=== PATIENT | female | born 1975 | race Two or more races ===

== ENCOUNTER → 2020-01-29 07:51 | Outpatient (BNVA) | payer OTHER, SELFPAY | PROVIDERS: PCP Internal Medicine; Visit Provider Advanced Practice Midwife | DX: Z76.89 Persons encountering health services in other specified circumstances (principal) ==

== ENCOUNTER 2020-05-08 08:04 | Outpatient (REF) | payer OTHER, SELFPAY ==
--- NOTE | ~2020-05-08 | MM_ITS ---
EXAMINATION: MM SCREENING DIGITAL BREAST TOMOSYNTHESIS, BILATERAL CLINICAL INFORMATION: Screening. Asymptomatic. The lifetime risk of breast cancer based on the Tyrer-Cuzick Model is 16%. COMPARISON: Mammography: 05/03/2019, 03/14/2018, 05/19/2017 TECHNIQUE: Digital breast tomosynthesis is performed in both the craniocaudal and mediolateral oblique views along with computer-aided detection (CAD). Synthesized 2D images are generated from the tomosynthesis. Additional right MLO view is provided. FINDINGS: There are scattered areas of fibroglandular density (ACR BI-RADS breast composition Category b). There are no significant masses, abnormal calcifications, or other abnormalities. The axilla and skin contours are unremarkable. MM/MM tomosynthesis screening BI IMPRESSION: No mammographic evidence of malignancy. ASSESSMENT: BI-RADS 1: Negative RECOMMENDATION: Routine annual mammography screening. This patient's information was entered into a reminder system with a target due date for their next mammogram.
== END 2020-05-08 08:05 | disposition home or self-care (01) ==
LOC: HO.MAMMO 08:04
PROVIDERS: PCP Internal Medicine; Visit Provider Internal Medicine
DX: Z12.31 Encounter for screening mammogram for malignant neoplasm of breast (principal)
CPT/HCPCS: 77063; 77067

== ENCOUNTER 2021-07-28 09:01 | Outpatient (REF) | payer OTHER, SELFPAY ==
[2021-07-28 14:32] LABS: CT PCR NOT DETECTED (Not Detect.); NG PCR NOT DETECTED (Not Detect.)
[2021-07-29 11:02] LABS: BV Int Neg Control Negative (Negative); BV Int Pos Control Positive (Positive)
[2021-07-31 13:02] LABS: HPV mRNA E6/E7 rflx Not Detected (Not Detected)
== END 2021-07-28 09:02 | disposition home or self-care (01) ==
LOC: HO.LAB 09:01
PROVIDERS: PCP Internal Medicine; Visit Provider Advanced Practice Midwife
DX: Z01.419 Encounter for gynecological examination (general) (routine) without abnormal findings (principal); R82.90 Unspecified abnormal findings in urine; N92.6 Irregular menstruation, unspecified; Z20.2 Contact with and (suspected) exposure to infections with a predominantly sexual mode of transmission
CPT/HCPCS: 87480; 87491; 87510; 87591; 87624; 87660; 88142

== ENCOUNTER 2021-07-30 07:52 | Outpatient (REF) | payer OTHER, SELFPAY ==
[2021-07-30 08:12] LABS: MANUAL DIFF FLAG NO
[2021-07-30 08:58] LABS: Basophils Absolute Auto 0.1 X10*3/uL (0.0-0.2); Basophils Percent Auto 0.8 % (0-2); Eosinophils Absolute Auto 0.2 X10*3/uL (0.0-0.4); Eosinophils Percent Auto 2.7 % (0-4); Hematocrit 33.9 % (37.0-47.0); Hemoglobin 9.9 g/dl (12.0-16.0); Imm Gran Abs Auto 0.03 X10*3/uL (0.00-0.03); Imm Gran Pct Auto 0.3 % (0.0-0.4); Lymphocytes Absolute Auto 1.8 X10*3/uL (1.2-4.9); Lymphocytes Percent Auto 20.4 % (20-40); Mean Corpuscular HGB Conc 29.2 g/dl (31.0-35.0); Mean Corpuscular Hemoglobin 22.2 pg (27.0-33.0); Mean Corpuscular Volume 76.2 fL (80.0-98.0); Mean Platelet Volume 9.6 fL (9.4-12.3); Monocytes Absolute Auto 0.7 X10*3/uL (0.1-1.2); Monocytes Percent Auto 8.2 % (2-11); Neutrophils Percent Auto 67.6 % (45-73); Platelet Count 441 X10*3/uL (160-400); Red Blood Count 4.45 X10*6/uL (4.20-5.50); Red Cell Distribution Width 16.8 % (11.0-16.0); White Blood Count 8.8 X10*3/uL (4.8-10.8)
[2021-07-30 09:29] LABS: Alanine Aminotransferase 12 U/L (0-31); Albumin Level 3.9 g/dL (3.5-5.0); Alkaline Phosphatase 69 U/L (39-117); Anion Gap 11 (12-20); Aspartate Amino Transferase 14 U/L (5-31); Bilirubin Total 0.4 mg/dL (0.0-1.0); Blood Urea Nitrogen 12 mg/dL (9-16); Calcium 9.3 mg/dL (8.4-10.2); Carbon Dioxide 25 mmol/L (22-29); Chloride 104 mmol/L (96-108); Cholesterol 156 mg/dL; Estimated Glomerular Filt Rate > 60; Glucose Fasting 115 mg/dL (60-99); HDL Cholesterol 37 mg/dL; LDL Cholesterol Calculated 107 mg/dl; Potassium 4.1 mmol/L (3.3-5.1); Sodium 136 mmol/L (135-145); Total Protein 7.4 g/dL (6.5-8.0); Triglycerides 62 mg/dL
[2021-07-30 09:40] LABS: Thyroid Stimulating Hormone 3.15 uIU/mL (0.32-4.0)
[2021-07-31 06:46] LABS: Thyroglobulin Antibodies <1 IU/mL (< or = 1); Thyroid Peroxidase Antibodies 334 IU/mL (<9)
== END 2021-07-30 07:53 | disposition home or self-care (01) ==
LOC: HO.LAB 07:52
PROVIDERS: PCP Internal Medicine; Visit Provider Internal Medicine
DX: Z00.00 Encounter for general adult medical examination without abnormal findings (principal); N92.6 Irregular menstruation, unspecified; E03.9 Hypothyroidism, unspecified; E78.5 Hyperlipidemia, unspecified; D64.9 Anemia, unspecified
CPT/HCPCS: 36415; 80053; 80061; 84443; 85025; 86376; 86800; 87086

== ENCOUNTER → 2021-08-03 13:50 | Outpatient (REF) | payer OTHER, SELFPAY | LOC: HO.SL 13:50 | PROVIDERS: PCP Internal Medicine; Visit Provider Internal Medicine | DX: G47.33 Obstructive sleep apnea (adult) (pediatric) (principal) | CPT/HCPCS: 95806 ==

== ENCOUNTER 2021-08-04 08:38 | Outpatient (REF) | payer OTHER, SELFPAY ==
--- NOTE | ~2021-08-04 | MM_ITS ---
EXAMINATION: MM SCREENING DIGITAL BREAST TOMOSYNTHESIS, BILATERAL CLINICAL INFORMATION: Screening. Asymptomatic. The lifetime risk of breast cancer based on the Tyrer-Cuzick Model is 15.6%. COMPARISON: Mammography: May 08, 2020 and studies dating back to May 19, 2017 TECHNIQUE: Digital breast tomosynthesis is performed in both the craniocaudal and mediolateral oblique views along with computer-aided detection (CAD). Synthesized 2D images are generated from the tomosynthesis. FINDINGS: The breasts are heterogeneously dense, which may obscure small masses (ACR BI-RADS breast composition Category c). There are no significant masses, abnormal calcifications, or other abnormalities. MM/MM tomosynthesis screening BI IMPRESSION: There are no significant changes from prior study. ASSESSMENT: BI-RADS 1: Negative RECOMMENDATION: Routine annual mammography screening. This patient's information was entered into a reminder system with a target due date for their next mammogram.
== END 2021-08-04 08:39 | disposition home or self-care (01) ==
LOC: HO.MAMMO 08:38
PROVIDERS: Visit Provider Advanced Practice Midwife
DX: Z12.31 Encounter for screening mammogram for malignant neoplasm of breast (principal)
CPT/HCPCS: 77063; 77067

== ENCOUNTER 2021-08-11 05:57 | Emergency (ER) | payer OTHER, SELFPAY ==
[2021-08-11 06:10] VITALS: BP 122/74; PULSE 92; RESP 18; TEMP 36.8; O2SAT 100; BMI 49.4
--- NOTE | 2021-08-11 07:30 | ED_ITS ---
HPI - Skin/Abscess/Foreign Bdy General Chief complaint: Skin/Abscess/Foreign Body Stated complaint: left sided breast pain Time Seen by Provider: 08/11/21 07:23 Source: patient Mode of arrival: ambulatory Limitations: no limitations History of Present Illness complaint: abscess/boil Onset (ago): day(s) (4) Tetanus up to date: yes Location: chest (under left breast) Severity: moderate Quality: aching Pain Consistency: constant Relieving factors: rest Exacerbating factors: palpation Context: other (hx of boils in the past) Associated symptoms: denies other symptoms Treatments prior to arrival: bandages Related Data Home Medications Medication Instructions Recorded Confirmed levothyroxine 75 mcg tablet 75 mcg PO DAILY 01/29/20 07/01/21 pantoprazole 40 mg tablet,delayed 40 mg PO DAILY 01/29/20 07/01/21 release Previous Rx's Medication Instructions Recorded medroxyprogesterone 10 mg tablet 10 mg PO DAILY #10 tabs 01/31/20 (Provera) blood sugar diagnostic #10 ea 04/28/20 lancets 28 gauge #100 ea 04/28/20 CPAP (CPAP Machine/Device) #1 ea 11/06/20 albuterol sulfate 2.5 mg (3 mL) inhalation Q4-6H PRN 11/10/20 shortness of breath or wheezing 30 days #75 mL albuterol sulfate 90 mcg/actuation 2 puff inhalation QID PRN 02/08/21 aerosol inhaler (ProAir HFA) shortness of breath or wheezing 30 days #8.5 grams metronidazole 500 mg tablet 500 mg PO BID 7 days #14 tabs 07/30/21 sulfamethoxazole 800 1 tab PO BID 10 days #20 tabs 08/09/21 mg-trimethoprim 160 mg tablet (Bactrim DS) cephalexin 500 mg capsule 500 mg PO TID 7 days #21 caps 08/11/21 doxycycline monohydrate 100 mg 100 mg PO BID 7 days #14 tabs 08/11/21 tablet Allergies Allergy/AdvReac Type Severity Reaction Status Date / Time nickel [NICKEL] Allergy Mild RASH Verified 07/28/21 09:36 pioglitazone Allergy Unknown headache, Verified 07/28/21 09:36 vomiting, stomach upset Review of Systems Review of Systems: Constitutional : No Fever, No Chills ENT/Mouth : No sore throat, No Rhinorrhea Eyes: No Eye Pain, No Swelling, No Redness Cardiovascular : No Chest Pain, No SOB Respiratory : No Cough, No Sputum Gastrointestinal : No Nausea, No Vomiting, No Diarrhea, No abdominal Pain Genitourinary : No Dysuria, No Hematuria Musculoskeletal : No joint pain, No Myalgias, No Joint Swelling Skin : pos Skin Lesions, positive skin rash Neuro : No Weakness, No Numbness, No Headache Psych : No Anxiety, No Depression Heme/Lymph: No Bruising, No Bleeding,No Lymphadenopathy Endocrine : No Polyuria, No Polydipsia All other systems reviewed and are negative [facility] Past Medical History Attestation statement: The following information was validated with the patient. Medical History Hx of diabetes mellitus Hx of thyroid disease Hyperlipemia Sleep apnea Surgical History H/O gastric bypass H/O ventral hernia repair History of appendectomy History of lithotripsy Hx of ovarian cystectomy Family History Family History Father Diabetes mellitus Stroke Mother Diabetes mellitus CVD (cardiovascular disease) Paternal Grandmother History of breast cancer Maternal Grandmother No problems noted. Maternal Aunt Stroke Diabetes mellitus Sister In good health Maternal Grandfather Skin cancer Social History Social History Housing: Apartment Alcohol intake: current Alcohol intake frequency: holidays/special occasions only Alcohol type: wine Patient Tobacco Use Status: Never used Tobacco e-Cigarette/Vaping Use: Never Used Second Hand Smoke Exposure: No Advance Directives: No Advance Directives Information Provided: Yes service: No Current occupational status: unemployed Sexual orientation: Straight/Heterosexual Cognitive needs: No Hearing needs: No Vision needs: Yes Physical Exam Vital Signs: Vital Signs: Last Vital Signs Temp 98.7 F 08/11/21 07:57 Pulse 71 08/11/21 08:16 Resp 18 08/11/21 08:16 BP 114/78 08/11/21 08:16 Pulse Ox 98 08/11/21 08:16 O2 Del Method 08/11/21 08:16 BMI result Body Mass Index 49.4 Appearance: Alert. Oriented X3. No acute distress. Eyes: Pupils equal, round and reactive to light. ENT: Pharynx normal. Neck: Normal inspection. Neck supple. CVS: Normal heart rate and rhythm. Pulses normal. Chest: under left breast small quarter sized boil noted no surrounding edema or erythema no retraction of nipple does not involve areola Respiratory: No respiratory distress. Breath sounds normal. Abdomen: Soft and nontender. Skin: Skin warm and dry. Normal skin color. Normal skin turgor. Extremities: No lower extremity edema. No calf ttp Neuro: Oriented X 3. No motor deficit. No sensory deficit. Course Course Course Narrative: just had mammogram prior to abscesss I+D performed by [facility] MDM - Skin/Abscess/Foreign Bdy MDM Narrative Medical decision making narrative: 46 yo female with hx of DM and boils comes in with boil under L breast x 4 days she denies fevers/vomiting or systemic symptoms at this time will start on oral antibiotics and I/D area it does not involve areola and she has hx of boils on the breast, no retraction of nipple. Procedures Abscess I/D Site: chest (L underside of breast) Side (if applicable): left Local Anesthetic: other anesthetic (LMX) Technique: needle aspiration (18G) and incised with blade (11) Amount of fluid expressed (mL): 5 Sent for culture/gram staining?: No Irrigation: Yes Packing used?: none Discharge Plan Discharge Clinical Impression: Abscess of breast Patient Disposition: Home, Self-Care Instructions: Abscess (ED) Additional Instructions: return to ED for any worsening symptoms or concerns monitor for symptoms including increased pain, redness, fevers, you seem to not be improving it is okay to shower but not soak area Prescriptions: New cephalexin 500 mg capsule 500 mg PO TID 7 Days Qty: 21 0RF doxycycline monohydrate 100 mg tablet 100 mg PO BID 7 Days Qty: 14 0RF No Action medroxyprogesterone [Provera] 10 mg tablet 10 mg PO DAILY Qty: 10 0RF (DME) blood sugar diagnostic Strip See Rx Instructions .ROUTE .MEDSUPPLY Qty: 10 11RF Rx Instructions: As directed (DME) lancets 28 gauge misc See Rx Instructions topical QID Qty: 100 11RF Rx Instructions: As directed (DME) CPAP Machine/Device Device See Rx Instructions .Route Qty: 1 0RF Rx Instructions: As directed albuterol sulfate 2.5 mg /3 mL (0.083 %) solution for nebulization 2.5 mg inhalation Q4-6H PRN (Reason: shortness of breath or wheezing) 30 Days Qty: 75 3RF albuterol sulfate [ProAir HFA] 90 mcg/actuation HFA aerosol inhaler 2 puff inhalation QID PRN (Reason: shortness of breath or wheezing) 30 Days Qty: 8.5 6RF metronidazole 500 mg tablet 500 mg PO BID 7 Days Qty: 14 0RF Rx Instructions: Take with food, Avoid alcohol and vinegar products sulfamethoxazole-trimethoprim [Bactrim DS] 800-160 mg tablet 1 tab PO BID 10 Days Qty: 20 0RF levothyroxine 75 mcg tablet 75 mcg PO DAILY pantoprazole 40 mg tablet,delayed release (DR/EC) 40 mg PO DAILY Referrals: Physician,Unknown J [Primary Care Provider] - 2 days (wound check with doctor on Monday ) Stand Alone Forms: Work/School Release
[2021-08-11 07:57] VITALS: BP 104/50; PULSE 76; RESP 14; TEMP 37.1; O2SAT 97
[2021-08-11] MEDS: cephALEXin 500 MG CAPSULE PO (08:01)
[2021-08-11 08:16] VITALS: BP 114/78; PULSE 71; RESP 18; O2SAT 98
[2021-08-11] MEDS: Lidocaine 4 % Cream KIT 1 APPL TOPICAL (09:23)
== END 2021-08-11 10:18 | disposition home or self-care (01) ==
PROVIDERS: Emergency Provider Emergency Medicine
DX: N61.1 Abscess of the breast and nipple (principal); E11.9 Type 2 diabetes mellitus without complications
CPT/HCPCS: 10060; 10160; 99284

== ENCOUNTER → 2021-08-31 10:51 | Outpatient (BNVA) | payer OTHER, SELFPAY | PROVIDERS: Visit Provider Surgery | DX: N61.1 Abscess of the breast and nipple (principal) | CPT/HCPCS: 99202 ==

== ENCOUNTER 2021-09-08 10:52 | Outpatient (REF) | payer OTHER, SELFPAY ==
--- NOTE | ~2021-09-08 | US_ITS ---
EXAMINATION: US PELVIS CLINICAL INFORMATION: Irregular menses COMPARISON: Previous pelvic ultrasound from 2019 TECHNIQUE: Ultrasound of the pelvis is performed using both transabdominal and transvaginal transducers along with Doppler. Transvaginal imaging is performed due to inadequate visualization transabdominally. FINDINGS: The uterus is anteverted and measures 9.2 x 4.4 x 6.7 cm in dimension. There are left posterior 2 fundal uterine fibroids measuring 2.4 x 2.3 x 2.8 cm that appears decreased from 3.9 x 3.1 x 3.6 cm and 1.5 x 1.2 x 1.3 cm that is not appreciably changed. Endometrial thickness is normal measuring 0.3 cm. There are nabothian cysts in the cervix. The right ovary measures 3.1 x 2.6 x 2.9 cm. There is a 2 cm simple right ovarian cyst. The left ovary measures 1.7 x 1.1 x 1.2 cm and is unremarkable. There is no fluid in the pelvis. US/US pelvic and transvaginal IMPRESSION: Posterior fundal uterine fibroids. Largest fibroid appears decreased from previous exam and smaller fibroid appears unchanged.
== END 2021-09-08 10:53 | disposition home or self-care (01) ==
LOC: HO.US 10:52
PROVIDERS: Visit Provider Advanced Practice Midwife
DX: N92.6 Irregular menstruation, unspecified (principal)
CPT/HCPCS: 76830; 76856

== ENCOUNTER → 2021-09-28 08:49 | Outpatient (BNVA) | payer OTHER, SELFPAY | PROVIDERS: PCP Internal Medicine; Visit Provider Nurse Practitioner Family | DX: G47.33 Obstructive sleep apnea (adult) (pediatric) (principal) | CPT/HCPCS: 99202 ==

== ENCOUNTER → 2021-10-07 09:55 | Outpatient (BNVA) | payer OTHER, SELFPAY | PROVIDERS: PCP Internal Medicine; Referring Provider Internal Medicine; Visit Provider Surgery | DX: N61.1 Abscess of the breast and nipple (principal) | CPT/HCPCS: 99212 ==

== ENCOUNTER 2021-11-15 08:41 | Outpatient (REF) | payer OTHER, SELFPAY ==
[2021-11-15 09:39] LABS: Hematocrit 32.9 % (37.0-47.0); Hemoglobin 9.4 g/dl (12.0-16.0); Mean Corpuscular HGB Conc 28.6 g/dl (31.0-35.0); Mean Corpuscular Hemoglobin 21.2 pg (27.0-33.0); Mean Corpuscular Volume 74.1 fL (80.0-98.0); Mean Platelet Volume 9.9 fL (9.4-12.3); Platelet Count 421 X10*3/uL (160-400); Red Blood Count 4.44 X10*6/uL (4.20-5.50); Red Cell Distribution Width 16.3 % (11.0-16.0); White Blood Count 8.3 X10*3/uL (4.8-10.8)
== END 2021-11-15 08:42 | disposition home or self-care (01) ==
LOC: HO.LAB 08:41
PROVIDERS: PCP Internal Medicine; Visit Provider Advanced Practice Midwife
DX: N93.9 Abnormal uterine and vaginal bleeding, unspecified (principal); D25.9 Leiomyoma of uterus, unspecified
CPT/HCPCS: 36415; 85027; 99212

== ENCOUNTER 2021-12-13 10:36 | Outpatient (REF) | payer OTHER, SELFPAY ==
[2021-12-15 15:48] LABS: HPV mRNA E6/E7 rflx Not Detected (Not Detected)
== END 2021-12-13 10:37 | disposition home or self-care (01) ==
LOC: HO.LNP 10:36
PROVIDERS: PCP Internal Medicine; Visit Provider Advanced Practice Midwife
DX: Z11.51 Encounter for screening for human papillomavirus (HPV) (principal); R87.615 Unsatisfactory cytologic smear of cervix; D25.9 Leiomyoma of uterus, unspecified; N93.9 Abnormal uterine and vaginal bleeding, unspecified
CPT/HCPCS: 58100; 81025; 87624; 88142; 88305

== ENCOUNTER 2021-12-13 11:32 | Outpatient (REF) | payer OTHER, SELFPAY | END 2021-12-13 11:33 | disposition home or self-care (01) | LOC: HO.LAB 11:32 | PROVIDERS: Visit Provider Advanced Practice Midwife | DX: Z13.89 Encounter for screening for other disorder (principal) | CPT/HCPCS: 88305 ==

== ENCOUNTER → 2022-01-18 10:44 | Outpatient (BNVA) | payer OTHER, SELFPAY | PROVIDERS: Visit Provider Advanced Practice Midwife | DX: Z30.09 Encounter for other general counseling and advice on contraception (principal) | CPT/HCPCS: 99212 ==

== ENCOUNTER → 2022-02-08 10:45 | Outpatient (BNVA) | payer OTHER, SELFPAY | PROVIDERS: Visit Provider Advanced Practice Midwife | DX: Z30.430 Encounter for insertion of intrauterine contraceptive device (principal) | CPT/HCPCS: 58300; J7298 ==

== ENCOUNTER 2022-02-27 19:20 | Emergency (ER) | payer OTHER, SELFPAY ==
--- NOTE | ~2022-02-27 | CT_ITS ---
EXAMINATION: CT ABDOMEN AND PELVIS WITHOUT CONTRAST CLINICAL INFORMATION: Abdominal tenderness. Vomiting. COMPARISON: CT abdomen and pelvis 07/27/2018 TECHNIQUE: Multidetector volumetric imaging was performed from the superior aspect of the liver through the pubic symphysis. Sagittal and coronal reformatted images were obtained on the technologist's workstation. This CT examination was performed using dose optimization techniques as appropriate, variously including the following: *Automated exposure control *Adjustment of mA and/or kV according to patient size (this includes techniques or standardized protocols for targeted exams where dose is matched to indication/reason for exam; i.e. extremities or head) *Use of iterative reconstruction technique DLP: 1036 mGy-cm FINDINGS: LUNG BASES: The visualized lung bases are unremarkable. LIVER, GALLBLADDER, AND BILIARY TREE: The liver is normal in size, shape, and attenuation. No focal hepatic lesion or biliary ductal dilatation is present. The gallbladder is unremarkable with no evidence of radiopaque gallstones, gallbladder wall thickening, or obvious pericholecystic inflammatory changes. PANCREAS: Unremarkable. SPLEEN: Unremarkable. ADRENAL GLANDS: Left adrenal nodule measuring 2.1 cm. Density measurement 0 Hounsfield units consistent with adrenal adenoma. No further imaging recommended. The right adrenal gland is normal. KIDNEYS AND URETERS: 1 mm nonobstructive stone upper pole of the right kidney. No stone in left kidney. There is no hydronephrosis. No ureteral calculus. BLADDER: Unremarkable. GASTROINTESTINAL TRACT: Status post gastric surgery. There is no acute abnormality of the bowel. No bowel obstruction. No bowel wall thickening or edema. Small volume of scattered stool in the colon Appendix not visualized. Surgical clips right lower quadrant likely prior appendectomy. ABDOMINAL WALL: No significant hernia is appreciated. LYMPH NODES: Normal. VASCULAR: Unremarkable. PELVIC VISCERA: 2.7 cm right adnexal cyst. Density measurement 6 Hounsfield units, simple fluid. Uterus is anteverted. IUD at the mid body. Small fundal fibroid measuring about 1 cm at the posterior fundus of uterus. OSSEOUS STRUCTURES: Unremarkable. CT/CT abdomen pelvis wo IV con IMPRESSION: 1. No acute abnormality CT scan abdomen pelvis. 2. Left adrenal adenoma. 3. 2.7 cm right adnexal cyst. 4. Status post gastric surgery. No acute abnormality of the bowel. Fleischner guidelines were followed.
[2022-02-27 19:22] VITALS: BP 123/69; PULSE 80; RESP 18; TEMP 36.2; O2SAT 97; BMI 41.6
--- NOTE | 2022-02-27 19:34 | ED.GENADULT ---
HPI - General Adult General Chief complaint: Abdominal Pain <MAKENNA Onofre Last Filed: 03/04/22 08:12> Stated complaint: abd pain,vomiting <MAKENNA Onofre Last Filed: 03/04/22 08:12> Time Seen by Provider: 02/27/22 21:31 <MAKENNA Onofre Last Filed: 03/04/22 08:12> Source: patient <MAKENNA Onofre Last Filed: 03/04/22 08:12> patient <MAKENNA Bains Last Filed: 02/27/22 23:08> Mode of arrival: ambulatory <MAKENNA Onofre Last Filed: 03/04/22 08:12> Limitations: no limitations <MAKENNA Onofre Last Filed: 03/04/22 08:12> History of Present Illness HPI narrative: 47-year-old female with history of obesity, diabetes, SAPPHIRE, asthma, hypothyroidism presents the ER for evaluation of central abdominal pain and nausea that started 02/25 and worsened today. She developed bilious vomiting and last episode was earlier today. She states the pain in her abdomen is in the epigastric area and radiates down to her central abdomen and periumbilical area. She states her last BM was yesterday and it was normal. No fever, chills. No URI symptoms. She is dizzy with positional changes only, this started today. No chest pain or SOB. <MAKENNA Bains - Last Filed: 02/27/22 23:08> MD complaint: abdominal pain, N/V <MAKENNA Bains Last Filed: 02/27/22 23:08> Onset (ago): day(s) (3) <MAKENNA Bains Last Filed: 02/27/22 23:08> Location: abdomen <MAKENNA Bains Last Filed: 02/27/22 23:08> Severity: moderate <MAKENNA Bains Last Filed: 02/27/22 23:08> Quality: aching <MAKENNA Bains Last Filed: 02/27/22 23:08> Pain Consistency: intermittent <MAKENNA Bains Last Filed: 02/27/22 23:08> Relieving factors: none <MAKENNA Bains - Last Filed: 02/27/22 23:08> Exacerbating factors: none <MAKENNA Bains - Last Filed: 02/27/22 23:08> Associated symptoms: loss of appetite and nausea/vomiting <MAKENNA Bains Last Filed: 02/27/22 23:08> Treatments prior to arrival: none <MAKENNA Bains - Last Filed: 02/27/22 23:08> Related Data Home medications: Home Medications Medication Instructions Recorded Confirmed levothyroxine 75 mcg tablet 75 mcg PO DAILY 01/29/20 10/07/21 pantoprazole 40 mg tablet,delayed 40 mg PO DAILY 01/29/20 10/07/21 release Previous Rx's Medication Instructions Recorded blood sugar diagnostic #10 ea 04/28/20 lancets 28 gauge #100 ea 04/28/20 albuterol sulfate 2.5 mg/3 mL 2.5 mg (3 mL) inhalation Q4-6H PRN 09/06/21 (0.083 %) solution for nebulization shortness of breath or wheezing 30 days #75 mL albuterol sulfate 90 mcg/actuation 2 puff inhalation QID PRN 10/23/21 aerosol inhaler (ProAir HFA) shortness of breath or wheezing 30 days #8.5 grams ferrous sulfate 325 mg (65 mg 325 mg PO BID #30 tabs 11/16/21 iron) tablet norethindrone (contraceptive) 0.35 0.35 mg PO DAILY #28 tabs 12/13/21 mg tablet (Rachele) medroxyprogesterone 10 mg tablet 10 mg PO DAILY 30 days #30 tabs 01/31/22 ondansetron 4 mg disintegrating 4 mg PO Q8H PRN nausea and 02/27/22 tablet vomiting #10 tabs <MAKENNA Onofre - Last Filed: 03/04/22 08:12> Allergies/adverse reactions: Allergies Allergy/AdvReac Type Severity Reaction Status Date / Time nickel [NICKEL] Allergy Mild RASH Verified 02/08/22 11:12 pioglitazone Allergy Unknown headache, Verified 02/08/22 11:12 vomiting, stomach upset <MAKENNA Onofre - Last Filed: 03/04/22 08:12> Review of Systems Review of Systems: Yes all other systems are reviewed and are negative <MAKENNA Bains - Last Filed: 02/27/22 23:08> [facility] Past Medical History Medical History: Medical History Abnormal uterine bleeding (AUB) Diabetes mellitus Encounter for physical examination Hx of thyroid disease Hyperlipemia Hyperplasia of cervix Hypothyroidism Mild asthma Morbid obesity due to excess calories Obesity SAPPHIRE (obstructive sleep apnea) Sleep apnea <MAKENNA Onofre - Last Filed: 03/04/22 08:12> Surgical History: Surgical History H/O gastric bypass H/O ventral hernia repair History of appendectomy History of lithotripsy Hx of ovarian cystectomy <MAKENNA Onofre - Last Filed: 03/04/22 08:12> Family History Family History: Family History Father Diabetes mellitus Stroke Mother Diabetes mellitus CVD (cardiovascular disease) Paternal Grandmother History of breast cancer Maternal Grandmother No problems noted. Maternal Aunt Stroke Diabetes mellitus Sister In good health Maternal Grandfather Skin cancer <MAKENNA Onofre - Last Filed: 03/04/22 08:12> Social History Social History: Social History Housing: Apartment Alcohol intake: current Alcohol intake frequency: holidays/special occasions only Alcohol type: wine Patient Tobacco Use Status: Never used Tobacco e-Cigarette/Vaping Use: Never Used Second Hand Smoke Exposure: No Advance Directives: No Advance Directives Information Provided: No service: No Current occupational status: unemployed Sexual orientation: Straight/Heterosexual Cognitive needs: No Hearing needs: No Vision needs: Yes <MAKENNA Onofre - Last Filed: 03/04/22 08:12> Physical Exam ED Vital Signs: Vital Signs - 24 hr 02/27/22 19:22 Temperature 97.2 F Pulse Rate 80 Respiratory Rate 18 Blood Pressure 123/69 Pulse Oximetry 97 Oxygen Delivery Method Room Air BMI result Body Mass Index 41.6 <MKAENNA Onofre - Last Filed: 03/04/22 08:12> Vital Signs - 24 hr 02/27/22 19:22 Temperature 97.2 F Pulse Rate 80 Respiratory Rate 18 Blood Pressure 123/69 Pulse Oximetry 97 Oxygen Delivery Method Room Air BMI result Body Mass Index 41.6 <MAKENNA Bains Last Filed: 02/27/22 23:08> Appearance: Alert. Oriented X3. No acute distress. Eyes: Pupils equal, round and reactive to light. ENT: Pharynx normal. Neck: Normal inspection. Neck supple. CVS: Normal heart rate and rhythm. Pulses normal. Respiratory: No respiratory distress. Breath sounds normal. Abdomen: Obese Soft with epigastric tenderness and periumbilical tenderness, without rebound or guarding, normal +BS x4 Skin: Skin warm and dry. Normal skin color. Normal skin turgor. No rashes. Extremities: No lower extremity edema. Neuro: Oriented X 3. No motor deficit. No sensory deficit. <MAKENNA Bains Last Filed: 02/27/22 23:08> Course Course Course Narrative: RME performed by Ana Villalobos PA-C. Patient is a 47 year old female presenting to the emergency department with nausea and abdominal pain. Labs ordered. Patient placed back in the waiting room pending results and room availability. <MAKENNA Onofre Last Filed: 03/04/22 08:12> Reevaluation(s) Reevaluation #1: 47 yo female with history of gastric bypass, hypothyroidism, DM, SAPPHIRE coming in with epigastric and central abd pain x3 days along with N/V. tender but soft on exam. labs showing mild leukocytosis likely reactive from vomiting. UA still pending. not septic. will get CT scan for further evaluation. iv pain meds and antiemetic ordered. will reassess. <MAKENNA Bains Last Filed: 02/27/22 23:08> Reevaluation #2: CT scan unremarkable. patient feeling much better and would like to go home. stable for d/c home with prn zofran. she will f/u with her PCP or return to the ER if new/worsening symptoms. <MAKENNA Bains Last Filed: 02/27/22 23:08> Medications Administered Discontinued Medications Generic Name Dose Route Start Last Admin Trade Name Rosy PRN Reason Stop Dose Admin Sodium Chloride 1,000 mls @ 999 mls/hr 02/27/22 21:45 02/27/22 23:06 Ns IV 02/27/22 22:45 Infused .Q1H1M TERE Infusion Morphine Sulfate 4 mg 02/27/22 21:41 02/27/22 22:18 Morphine Sulfate 4 Mg/Ml Cartridge IVPUSH 02/27/22 21:42 4 mg ONCE ONE Administration Protocol Ondansetron HCl 4 mg 02/27/22 21:41 02/27/22 22:17 Ondansetron Hcl 4 Mg/2 Ml Vial IVPUSH 02/27/22 21:42 4 mg ONCE ONE Administration <MAKENNA Onofre - Last Filed: 03/04/22 08:12> Medications Administered Discontinued Medications Generic Name Dose Route Start Last Admin Trade Name Rosy PRN Reason Stop Dose Admin Sodium Chloride 1,000 mls @ 999 mls/hr 02/27/22 21:45 02/27/22 23:06 Ns IV 02/27/22 22:45 Infused .Q1H1M TERE Infusion Morphine Sulfate 4 mg 02/27/22 21:41 02/27/22 22:18 Morphine Sulfate 4 Mg/Ml Cartridge IVPUSH 02/27/22 21:42 4 mg ONCE ONE Administration Protocol Ondansetron HCl 4 mg 02/27/22 21:41 02/27/22 22:17 Ondansetron Hcl 4 Mg/2 Ml Vial IVPUSH 02/27/22 21:42 4 mg ONCE ONE Administration <MAKENNA Bains - Last Filed: 02/27/22 23:08> Medical Decision Making Lab Data Result Diagrams: 02/27/22 20:06 02/27/22 20:09 <MAKENNA Onofre - Last Filed: 03/04/22 08:12> Labs: Lab Results 02/27/22 02/27/22 02/27/22 Range/Units 20:06 20:09 20:09 WBC 12.4 H (4.8-10.8) X10*3/uL RBC 4.69 (4.20-5.50) X10*6/uL Hgb 10.0 L (12.0-16.0) g/dl Hct 33.9 L (37.0-47.0) % MCV 72.3 L (80.0-98.0) fL MCH 21.3 L (27.0-33.0) pg MCHC 29.5 L (31.0-35.0) g/dl RDW 17.2 H (11.0-16.0) % Plt Count 404 H (160-400) X10*3/uL MPV 8.7 L (9.4-12.3) fL Immature Gran % (Auto) 0.4 (0.0-0.4) % Neut % (Auto) 78.9 H (45-73) % Lymph % (Auto) 12.8 L (20-40) % [place] % (Auto) 6.4 (2-11) % Eos % (Auto) 1.1 (0-4) % Baso % (Auto) 0.4 (0-2) % Lymph # (Auto) 1.6 (1.2-4.9) X10*3/uL [place] # (Auto) 0.8 (0.1-1.2) X10*3/uL Eos # (Auto) 0.1 (0.0-0.4) X10*3/uL Baso # (Auto) 0.1 (0.0-0.2) X10*3/uL Abs Immat Gran (auto) 0.05 H (0.00-0.03) X10*3/uL Absolute Neuts (auto) 9.8 H (2.0-8.3) x10*3/uL Absolute Nucleated RBC 0.000 (0.0-0.012) X10*3/uL Nucleated RBC % (auto) 0.0 (0.0-0.2) /100WBC Sodium 136 (135-145) mmol/L Potassium 3.6 (3.3-5.1) mmol/L Chloride 103 (96-108) mmol/L Carbon Dioxide 26 (22-29) mmol/L Anion Gap 11 L (12-20) BUN 10 (9-16) mg/dL Creatinine 0.75 (0.5-1.4) mg/dL Estim Creat Clear Calc 105.6 Estimated GFR > 60 Random Glucose 191 H (60-115) mg/dL Calcium 9.4 (8.4-10.2) mg/dL Magnesium 1.9 (1.6-2.6) mg/dL Total Bilirubin 0.3 (0.0-1.0) mg/dL AST 13 (5-31) U/L ALT 14 (0-31) U/L Alkaline Phosphatase 75 (39-117) U/L Total Protein 7.6 (6.5-8.0) g/dL Albumin 4.1 (3.5-5.0) g/dL Influenza Type A (PCR) NEGATIVE (Negative) Influenza Type B (PCR) NEGATIVE (Negative) RSV RNA Qual (PCR) NEGATIVE (Negative) SARS-CoV-2 RNA (RT-PCR) NEGATIVE (Negative) <MAKENNA Onofre - Last Filed: 03/04/22 08:12> Lab Results 02/27/22 02/27/22 02/27/22 Range/Units 20:06 20:09 20:09 WBC 12.4 H (4.8-10.8) X10*3/uL RBC 4.69 (4.20-5.50) X10*6/uL Hgb 10.0 L (12.0-16.0) g/dl Hct 33.9 L (37.0-47.0) % MCV 72.3 L (80.0-98.0) fL MCH 21.3 L (27.0-33.0) pg MCHC 29.5 L (31.0-35.0) g/dl RDW 17.2 H (11.0-16.0) % Plt Count 404 H (160-400) X10*3/uL MPV 8.7 L (9.4-12.3) fL Immature Gran % (Auto) 0.4 (0.0-0.4) % Neut % (Auto) 78.9 H (45-73) % Lymph % (Auto) 12.8 L (20-40) % [place] % (Auto) 6.4 (2-11) % Eos % (Auto) 1.1 (0-4) % Baso % (Auto) 0.4 (0-2) % Lymph # (Auto) 1.6 (1.2-4.9) X10*3/uL [place] # (Auto) 0.8 (0.1-1.2) X10*3/uL Eos # (Auto) 0.1 (0.0-0.4) X10*3/uL Baso # (Auto) 0.1 (0.0-0.2) X10*3/uL Abs Immat Gran (auto) 0.05 H (0.00-0.03) X10*3/uL Absolute Neuts (auto) 9.8 H (2.0-8.3) x10*3/uL Absolute Nucleated RBC 0.000 (0.0-0.012) X10*3/uL Nucleated RBC % (auto) 0.0 (0.0-0.2) /100WBC Sodium 136 (135-145) mmol/L Potassium 3.6 (3.3-5.1) mmol/L Chloride 103 (96-108) mmol/L Carbon Dioxide 26 (22-29) mmol/L Anion Gap 11 L (12-20) BUN 10 (9-16) mg/dL Creatinine 0.75 (0.5-1.4) mg/dL Estim Creat Clear Calc 105.6 Estimated GFR > 60 Random Glucose 191 H (60-115) mg/dL Calcium 9.4 (8.4-10.2) mg/dL Magnesium 1.9 (1.6-2.6) mg/dL Total Bilirubin 0.3 (0.0-1.0) mg/dL AST 13 (5-31) U/L ALT 14 (0-31) U/L Alkaline Phosphatase 75 (39-117) U/L Total Protein 7.6 (6.5-8.0) g/dL Albumin 4.1 (3.5-5.0) g/dL Influenza Type A (PCR) NEGATIVE (Negative) Influenza Type B (PCR) NEGATIVE (Negative) RSV RNA Qual (PCR) NEGATIVE (Negative) SARS-CoV-2 RNA (RT-PCR) NEGATIVE (Negative) <MAKENNA Bains - Last Filed: 02/27/22 23:08> Critical Care Time Critical Care Time Critical Care Time: No <MAKENNA Bains - Last Filed: 02/27/22 23:08> Discharge Plan Discharge Clinical Impression: Gastroenteritis <MAKENNA Onofre - Last Filed: 03/04/22 08:12> Patient Disposition: Home, Self-Care <MAKENNA Onofre - Last Filed: 03/04/22 08:12> Instructions: Gastroenteritis (ED) <MAKENNA Onofre - Last Filed: 03/04/22 08:12> Additional Instructions: You lab workup today was largely unremarkable. Your CT scan did not show any causes of your symptoms. You most likely have a viral GI bug also known as gastroenteritis. Treatment is supportive care, symptoms usually resolve on their own in 48-72 hours. Recommend rest and plenty of oral hydration. Stick to a bland diet like soup and toast while you are not feeling well. Take the prescribed medication as needed for nausea. Recommend over the counter Pepto Bismol or Imodium for upset stomach and diarrhea. Follow up with your doctor as needed. If you develop new or worsening symptoms call 911 or come back to the ER for further evaluation. <MAKENNA Onofre - Last Filed: 03/04/22 08:12> Prescriptions: New ondansetron 4 mg tablet,disintegrating 4 mg PO Q8H PRN (Reason: nausea and vomiting) Qty: 10 0RF No Action (DME) blood sugar diagnostic Strip See Rx Instructions .ROUTE .MEDSUPPLY Qty: 10 11RF Rx Instructions: As directed (DME) lancets 28 gauge misc See Rx Instructions topical QID Qty: 100 11RF Rx Instructions: As directed albuterol sulfate 2.5 mg /3 mL (0.083 %) solution for nebulization 2.5 mg inhalation Q4-6H PRN (Reason: shortness of breath or wheezing) 30 Days Qty: 75 3RF albuterol sulfate [ProAir HFA] 90 mcg/actuation HFA aerosol inhaler 2 puff inhalation QID PRN (Reason: shortness of breath or wheezing) 30 Days Qty: 8.5 6RF ferrous sulfate 325 mg (65 mg iron) tablet 325 mg PO BID Qty: 30 5RF medroxyprogesterone 10 mg tablet 10 mg PO DAILY 30 Days Qty: 30 0RF levothyroxine 75 mcg tablet 75 mcg PO DAILY pantoprazole 40 mg tablet,delayed release (DR/EC) 40 mg PO DAILY norethindrone (contraceptive) [Rachele] 0.35 mg tablet 0.35 mg PO DAILY Qty: 28 2RF <MAKENNA Onofre - Last Filed: 03/04/22 08:12> Interventions: ED Discharge Assessment Last Done: 02/27/22 23:14 <MAKENNA Onofre - Last Filed: 03/04/22 08:12> Discharge Date/Time: 02/27/22 23:16 <MAKENNA Onofre - Last Filed: 03/04/22 08:12>
[2022-02-27 20:14] LABS: MANUAL DIFF FLAG NO
[2022-02-27 20:15] LABS: Basophils Absolute Auto 0.1 X10*3/uL (0.0-0.2); Basophils Percent Auto 0.4 % (0-2); Eosinophils Absolute Auto 0.1 X10*3/uL (0.0-0.4); Eosinophils Percent Auto 1.1 % (0-4); Hematocrit 33.9 % (37.0-47.0); Imm Gran Abs Auto 0.05 X10*3/uL (0.00-0.03); Imm Gran Pct Auto 0.4 % (0.0-0.4); Lymphocytes Absolute Auto 1.6 X10*3/uL (1.2-4.9); Lymphocytes Percent Auto 12.8 % (20-40); Mean Corpuscular HGB Conc 29.5 g/dl (31.0-35.0); Mean Corpuscular Hemoglobin 21.3 pg (27.0-33.0); Mean Corpuscular Volume 72.3 fL (80.0-98.0); Mean Platelet Volume 8.7 fL (9.4-12.3); Monocytes Absolute Auto 0.8 X10*3/uL (0.1-1.2); Monocytes Percent Auto 6.4 % (2-11); Neutrophils Absolute Auto 9.8 x10*3/uL (2.0-8.3); Neutrophils Percent Auto 78.9 % (45-73); Platelet Count 404 X10*3/uL (160-400); Red Blood Count 4.69 X10*6/uL (4.20-5.50); Red Cell Distribution Width 17.2 % (11.0-16.0); White Blood Count 12.4 X10*3/uL (4.8-10.8)
[2022-02-27 20:29] LABS: Alanine Aminotransferase 14 U/L (0-31); Albumin Level 4.1 g/dL (3.5-5.0); Alkaline Phosphatase 75 U/L (39-117); Anion Gap 11 (12-20); Aspartate Amino Transferase 13 U/L (5-31); Bilirubin Total 0.3 mg/dL (0.0-1.0); Blood Urea Nitrogen 10 mg/dL (9-16); Calcium 9.4 mg/dL (8.4-10.2); Carbon Dioxide 26 mmol/L (22-29); Chloride 103 mmol/L (96-108); Creatinine Clr Calc Pharmacy 105.6; Estimated Glomerular Filt Rate > 60; Glucose Random 191 mg/dL (60-115); Magnesium 1.9 mg/dL (1.6-2.6); Potassium 3.6 mmol/L (3.3-5.1); Sodium 136 mmol/L (135-145); Total Protein 7.6 g/dL (6.5-8.0)
[2022-02-27 20:52] LABS: Influenza A PCR NEGATIVE (Negative); Influenza B PCR NEGATIVE (Negative); Resp Syncy Virus RNA Qual PCR NEGATIVE (Negative); SARS COV2 PCR INHOUSE NEGATIVE (Negative)
[2022-02-27] MEDS: 0.9 % Sodium Chloride 1,000 ML 999 ML IV (22:00)
[2022-02-27] MEDS: ondansetron HCL 4 MG/2 ML VIAL IVPUSH (22:17)
[2022-02-27] MEDS: Morphine Sulfate 4 MG/ML CARTRIDGE IVPUSH (22:18)
--- NOTE | 2022-02-27 22:38 | PC.NURSE ---
pt medicated per provider order for abd pain and nausea.
== END 2022-02-27 23:16 | disposition home or self-care (01) ==
PROVIDERS: Physician Assistant Medical; Emergency Provider Internal Medicine
DX: K52.9 Noninfective gastroenteritis and colitis, unspecified (principal); R11.2 Nausea with vomiting, unspecified; G47.33 Obstructive sleep apnea (adult) (pediatric); Z20.822 Contact with and (suspected) exposure to COVID-19; Z79.899 Other long term (current) drug therapy
CPT/HCPCS: 0241U; 74176; 80053; 83735; 85025; 96361; 96374; 96375; 99283; 99284; J2270; J2405

== ENCOUNTER 2022-03-06 02:36 | Emergency (ER) | payer OTHER, SELFPAY ==
--- NOTE | ~2022-03-06 | US_ITS ---
EXAMINATION: US ABDOMEN LIMITED CLINICAL INFORMATION: Mid abdominal pain for 5 days.. COMPARISON: CT abdomen/pelvis dated 02/27/2022 TECHNIQUE: Real-time imaging of the right upper quadrant abdominal viscera. FINDINGS: PANCREAS: Visualized portions unremarkable; tail obscured by interposed bowel gas. LIVER: Normal. The liver is normal in size. The liver contour is normal. Parenchymal echogenicity is normal. No focal hepatic lesion. There is no intrahepatic biliary duct dilatation seen. GALLBLADDER: Mobile stones present within the gallbladder. No gallbladder wall thickening or pericholecystic fluid. Sonographic Farias sign is negative. COMMON BILE DUCT: Normal in caliber measuring 0.3 cm in diameter. RIGHT KIDNEY: Normal. No hydronephrosis. No renal calculi or focal parenchymal lesions. The kidney measures 11.0 cm in maximum dimension. FREE FLUID: None. US/US abdomen limited IMPRESSION: Cholelithiasis. No sonographic evidence of cholecystitis.
[2022-03-06 02:40] VITALS: BP 153/82; PULSE 90; RESP 18; TEMP 36.6; O2SAT 99; BMI 40.2
[2022-03-06 03:32] VITALS: BP 139/83; PULSE 80; RESP 16; TEMP 36.6; O2SAT 95
[2022-03-06 03:48] LABS: MANUAL DIFF FLAG NO
[2022-03-06 03:52] LABS: Basophils Absolute Auto 0.1 X10*3/uL (0.0-0.2); Basophils Percent Auto 0.5 % (0-2); Eosinophils Percent Auto 0.1 % (0-4); Hematocrit 32.4 % (37.0-47.0); Hemoglobin 9.7 g/dl (12.0-16.0); Imm Gran Abs Auto 0.07 X10*3/uL (0.00-0.03); Imm Gran Pct Auto 0.5 % (0.0-0.4); Lymphocytes Percent Auto 6.6 % (20-40); Mean Corpuscular HGB Conc 29.9 g/dl (31.0-35.0); Mean Corpuscular Hemoglobin 21.4 pg (27.0-33.0); Mean Corpuscular Volume 71.5 fL (80.0-98.0); Mean Platelet Volume 9.1 fL (9.4-12.3); Monocytes Absolute Auto 0.6 X10*3/uL (0.1-1.2); Monocytes Percent Auto 4.1 % (2-11); Neutrophils Absolute Auto 13.1 x10*3/uL (2.0-8.3); Neutrophils Percent Auto 88.2 % (45-73); Platelet Count 464 X10*3/uL (160-400); Red Blood Count 4.53 X10*6/uL (4.20-5.50); Red Cell Distribution Width 16.9 % (11.0-16.0); White Blood Count 14.8 X10*3/uL (4.8-10.8)
--- NOTE | 2022-03-06 03:54 | PC.NURSE ---
pt c/o abdominal pain accompanied by n/v; denies diarrhea; pt a&ox4
[2022-03-06 03:55] LABS: Appearance Urine Cloudy; Color Urine Orange; Glucose Urine UA Negative (Negative); Leukocyte Esterase Urine Large (3+) (Negative); Nitrite Urine Negative (Negative); PH 6.5 (5.0-9.0); Specific Gravity - Urine >= 1.030 (1.005-1.025); UMIC TRIGGER UACC YES; Urine Blood Large (3+) (Negative); Urine Ketones 15 mg/dL (Negative); Urine Protein 100 (2+) mg/dL (Neg-Trace)
[2022-03-06 04:03] LABS: Bacteria Urine 4+ (None Seen); Hyaline Casts Urine 0-2 /LPF (0-2); RBC Urine >20 /HPF (0-2); UACC Culture Trigger YES; WBC Urine >50 /HPF (0-5)
[2022-03-06 04:07] LABS: Alanine Aminotransferase 13 U/L (0-31); Albumin Level 4.1 g/dL (3.5-5.0); Alkaline Phosphatase 71 U/L (39-117); Anion Gap 16 (12-20); Aspartate Amino Transferase 14 U/L (5-31); Bilirubin Direct 0.2 mg/dL (0.0-0.5); Bilirubin Total 0.4 mg/dL (0.0-1.0); Blood Urea Nitrogen 13 mg/dL (9-16); Calcium 9.3 mg/dL (8.4-10.2); Carbon Dioxide 20 mmol/L (22-29); Chloride 106 mmol/L (96-108); Creatinine Clr Calc Pharmacy 104.9; Estimated Glomerular Filt Rate > 60; Glucose Random 203 mg/dL (60-115); Lipase 11 U/L (8-78); Potassium 3.6 mmol/L (3.3-5.1); Sodium 138 mmol/L (135-145); Total Protein 7.5 g/dL (6.5-8.0)
--- NOTE | 2022-03-06 04:49 | ED_ITS ---
HPI - Abdominal Pain General Chief Complaint: Abdominal Pain Stated Complaint: Pain in stomach Time Seen by Provider: 03/06/22 03:56 Source: patient Mode of arrival: ambulatory History of Present Illness HPI narrative: 47-year-old female with history of diabetes states that she was feeling well until today when she began developing epigastric pain that she describes as crampy in nature with radiation into the back and episodes of nausea and vomiting. Patient has a positive bariatric surgery history. Related Data Home Medications Medication Instructions Recorded Confirmed levothyroxine 75 mcg tablet 75 mcg PO DAILY 01/29/20 10/07/21 pantoprazole 40 mg tablet,delayed 40 mg PO DAILY 01/29/20 10/07/21 release Previous Rx's Medication Instructions Recorded blood sugar diagnostic #10 ea 04/28/20 lancets 28 gauge #100 ea 04/28/20 albuterol sulfate 2.5 mg/3 mL 2.5 mg (3 mL) inhalation Q4-6H PRN 09/06/21 (0.083 %) solution for nebulization shortness of breath or wheezing 30 days #75 mL albuterol sulfate 90 mcg/actuation 2 puff inhalation QID PRN 10/23/21 aerosol inhaler (ProAir HFA) shortness of breath or wheezing 30 days #8.5 grams ferrous sulfate 325 mg (65 mg 325 mg PO BID #30 tabs 11/16/21 iron) tablet norethindrone (contraceptive) 0.35 0.35 mg PO DAILY #28 tabs 12/13/21 mg tablet (Rachele) medroxyprogesterone 10 mg tablet 10 mg PO DAILY 30 days #30 tabs 01/31/22 ondansetron 4 mg disintegrating 4 mg PO Q8H PRN nausea and 02/27/22 tablet vomiting #10 tabs Allergies Allergy/AdvReac Type Severity Reaction Status Date / Time nickel [NICKEL] Allergy Mild RASH Verified 02/08/22 11:12 pioglitazone Allergy Unknown headache, Verified 02/08/22 11:12 vomiting, stomach upset Review of Systems Review of Systems Pertinent positives and negatives as stated in HPI PMFSH Past Medical History Source: nursing notes reviewed Medical History Abnormal uterine bleeding (AUB) Diabetes mellitus Encounter for physical examination Hx of thyroid disease Hyperlipemia Hyperplasia of cervix Hypothyroidism Mild asthma Morbid obesity due to excess calories Obesity SAPPHIRE (obstructive sleep apnea) Sleep apnea Surgical History H/O gastric bypass H/O ventral hernia repair History of appendectomy History of lithotripsy Hx of ovarian cystectomy Family History Family History Father Diabetes mellitus Stroke Mother Diabetes mellitus CVD (cardiovascular disease) Paternal Grandmother History of breast cancer Maternal Grandmother No problems noted. Maternal Aunt Stroke Diabetes mellitus Sister In good health Maternal Grandfather Skin cancer Social History Social History Housing: Apartment Alcohol intake: never Patient Tobacco Use Status: Never used Tobacco Smoked in Last 30 Days: No e-Cigarette/Vaping Use: Never Used Second Hand Smoke Exposure: No Use of substances other than those prescribed or required for medical reasons: No Advance Directives: No service: No Current occupational status: unemployed Sexual orientation: Straight/Heterosexual Cognitive needs: No Hearing needs: No Vision needs: Yes Physical Exam ED Vital Signs: Vital Signs - 24 hr 03/06/22 02:40 03/06/22 03:32 03/06/22 06:04 Temperature 98 F 98 F 98.3 F Pulse Rate 90 80 76 Respiratory Rate 18 16 19 Blood Pressure 153/82 H 139/83 134/68 Pulse Oximetry 99 95 99 Oxygen Delivery Method Room Air Room Air Room Air BMI result Body Mass Index 40.2 VITAL SIGNS: Reviewed. GENERAL: Well developed, well nourished, in no acute distress. HEAD: Normocephalic/atraumatic EYES: PERRLA, EOMI EARS: Ext canals without abnormality OROPHARYNX: no oral lesions noted, posterior pharynx clear LUNGS: Normal breath sounds. No adventitious sounds or accessory muscle use. SpO2<99> CARDIOVASCULAR: Regular rate and rhythm without noted murmurs ABDOMEN: Soft, right upper quadrant/epigastric pain without rebound, non- distended with bowel sounds. MUSCULOSKELETAL: No tenderness, deformities, or effusions noted on gross inspection. EXTREMITIES: No cyanosis, clubbing or edema. SKIN: Inspection of the skin reveals no rashes NEUROLOGIC: Alert and oriented x 4. Strength and sensation to light touch were grossly intact x 4. Medical Decision Making Medical Decision Making MDM Narrative: 47-year-old female with abdominal pain, nausea, vomiting. Will obtain labs, ultrasound, urinalysis, patient received IV fluids and antiemetics. I have reviewed workup and my interpretation is that findings are most consistent with gastroenteritis very similar to on patient's last visit as there is no evidence to support cholecystitis, pancreatitis. I have signed out to Dr. Singletary to follow up re-hydration and PO challenge. Differential Diagnosis Differential Diagnoses: The differential diagnosis associated with the presentation includes Please see the discussion above Lab Data [facility] Lab Attestation statement: I reviewed the patient's lab results. Please see the discussion above 03/06/22 03:40 03/06/22 03:40 Labs: Lab Results 03/06/22 03/06/22 03/06/22 Range/Units 03:37 03:40 03:40 WBC 14.8 H (4.8-10.8) X10*3/uL RBC 4.53 (4.20-5.50) X10*6/uL Hgb 9.7 L (12.0-16.0) g/dl Hct 32.4 L (37.0-47.0) % MCV 71.5 L (80.0-98.0) fL MCH 21.4 L (27.0-33.0) pg MCHC 29.9 L (31.0-35.0) g/dl RDW 16.9 H (11.0-16.0) % Plt Count 464 H (160-400) X10*3/uL MPV 9.1 L (9.4-12.3) fL Immature Gran % (Auto) 0.5 H (0.0-0.4) % Neut % (Auto) 88.2 H (45-73) % Lymph % (Auto) 6.6 L (20-40) % [place] % (Auto) 4.1 (2-11) % Eos % (Auto) 0.1 (0-4) % Baso % (Auto) 0.5 (0-2) % Lymph # (Auto) 1.0 L (1.2-4.9) X10*3/uL [place] # (Auto) 0.6 (0.1-1.2) X10*3/uL Eos # (Auto) 0.0 (0.0-0.4) X10*3/uL Baso # (Auto) 0.1 (0.0-0.2) X10*3/uL Abs Immat Gran (auto) 0.07 H (0.00-0.03) X10*3/uL Absolute Neuts (auto) 13.1 H (2.0-8.3) x10*3/uL Absolute Nucleated RBC 0.000 (0.0-0.012) X10*3/uL Nucleated RBC % (auto) 0.0 (0.0-0.2) /100WBC Sodium 138 (135-145) mmol/L Potassium 3.6 (3.3-5.1) mmol/L Chloride 106 (96-108) mmol/L Carbon Dioxide 20 L (22-29) mmol/L Anion Gap 16 (12-20) BUN 13 (9-16) mg/dL Creatinine 0.74 (0.5-1.4) mg/dL Estim Creat Clear Calc 104.9 Estimated GFR > 60 Random Glucose 203 H (60-115) mg/dL Calcium 9.3 (8.4-10.2) mg/dL Total Bilirubin 0.4 (0.0-1.0) mg/dL Direct Bilirubin 0.2 (0.0-0.5) mg/dL AST 14 (5-31) U/L ALT 13 (0-31) U/L Alkaline Phosphatase 71 (39-117) U/L Total Protein 7.5 (6.5-8.0) g/dL Albumin 4.1 (3.5-5.0) g/dL Lipase 11 (8-78) U/L Urine Color [place] A Urine Appearance Cloudy Urine pH 6.5 (5.0-9.0) Ur Specific [place] >= 1.030 H (1.005-1.025) Urine Protein 100 (2+) H (Neg-Trace) mg/dL Urine Glucose (UA) Negative (Negative) mg/dL Urine Ketones 15 (Negative) mg/dL Urine Blood Large (3+) H (Negative) Urine Nitrite Negative (Negative) Ur Leukocyte Esterase Large (3+) H (Negative) Urine RBC >20 H (0-2) /HPF Urine WBC >50 H (0-5) /HPF Ur Squamous Epith Cells 3-5 (0-2) /HPF Urine Bacteria 4+ (None Seen) Hyaline Casts 0-2 (0-2) /LPF Medications Administered Discontinued Medications Generic Name Dose Route Start Last Admin Trade Name Rosy PRN Reason Stop Dose Admin Sodium Chloride 1,000 mls @ 999 mls/hr 03/06/22 05:00 03/06/22 05:43 Ns IV 03/06/22 06:00 999 mls/hr .Q1H1M TERE Administration Ondansetron HCl 4 mg 03/06/22 04:50 03/06/22 05:43 Ondansetron Hcl 4 Mg/2 Ml Vial IVPUSH 03/06/22 04:51 4 mg ONCE ONE Administration Discharge Plan Discharge Clinical Impression: Gastritis, Cholelithiasis Patient Disposition: Home, Self-Care Instructions: Gastritis (ED), Gallstones (ED), Diet for Stomach Ulcers and Gastritis (ED) Additional Instructions: 1. Resume all home medications as prescribed. 2. You need follow-up with your primary care provider on Monday to set up an appointment for re-evaluation and further outpatient management. Return to the ER for any worsening symptoms. Prescriptions: No Action (DME) blood sugar diagnostic Strip See Rx Instructions .ROUTE .MEDSUPPLY Qty: 10 11RF Rx Instructions: As directed (DME) lancets 28 gauge misc See Rx Instructions topical QID Qty: 100 11RF Rx Instructions: As directed albuterol sulfate 2.5 mg /3 mL (0.083 %) solution for nebulization 2.5 mg inhalation Q4-6H PRN (Reason: shortness of breath or wheezing) 30 Days Qty: 75 3RF albuterol sulfate [ProAir HFA] 90 mcg/actuation HFA aerosol inhaler 2 puff inhalation QID PRN (Reason: shortness of breath or wheezing) 30 Days Qty: 8.5 6RF ferrous sulfate 325 mg (65 mg iron) tablet 325 mg PO BID Qty: 30 5RF medroxyprogesterone 10 mg tablet 10 mg PO DAILY 30 Days Qty: 30 0RF ondansetron 4 mg tablet,disintegrating 4 mg PO Q8H PRN (Reason: nausea and vomiting) Qty: 10 0RF levothyroxine 75 mcg tablet 75 mcg PO DAILY pantoprazole 40 mg tablet,delayed release (DR/EC) 40 mg PO DAILY norethindrone (contraceptive) [Rachele] 0.35 mg tablet 0.35 mg PO DAILY Qty: 28 2RF Referrals: Jess Cordoba MD [Primary Care Provider] -
[2022-03-06] MEDS: ondansetron HCL 4 MG/2 ML VIAL IVPUSH (05:43)
[2022-03-06] MEDS: 0.9 % Sodium Chloride 1,000 ML 999 ML IV (05:43)
--- NOTE | 2022-03-06 05:55 | PC.NURSE ---
pt alert and oriented, ambulated to restroom without assistance, est Iv access L AC 20 g; no apparent distress
[2022-03-06 06:04] VITALS: BP 134/68; PULSE 76; RESP 19; TEMP 36.8; O2SAT 99
[2022-03-06 07:25] VITALS: BP 92/50; PULSE 83; RESP 14; TEMP 36.8; O2SAT 93
[2022-03-06 08:42] VITALS: BP 101/56; PULSE 79; RESP 17; O2SAT 97
--- NOTE | 2022-03-06 08:44 | PC.NURSE ---
pt is a/o x 4 no sob/lisa noted speaks in full sentences. lungs - cta. heart sounds regular. abd obese, soft and tender 7/10 mid-line abd pain. bs + x 4 quads. no edema noted. pt aware of plan of care. po challenge (water) given, pt roscoe well. md aware.
== END 2022-03-06 09:33 | disposition home or self-care (01) ==
PROVIDERS: Student in an Organized Health Care Education/Training Program; Emergency Provider Emergency Medicine Emergency Medical Services; PCP Internal Medicine
DX: K29.70 Gastritis, unspecified, without bleeding (principal); K80.20 Calculus of gallbladder without cholecystitis without obstruction; Z79.899 Other long term (current) drug therapy
CPT/HCPCS: 36415; 76705; 80048; 80076; 81001; 83690; 85025; 87086; 96374; 99285; J2405

== ENCOUNTER 2022-03-11 01:26 | Emergency (ER) | payer OTHER, SELFPAY ==
[2022-03-11 01:29] VITALS: BP 139/82; PULSE 77; RESP 20; TEMP 36.6; O2SAT 100; BMI 40.2
[2022-03-11 01:47] LABS: Basophils Percent Auto 0.3 % (0-2); Eosinophils Percent Auto 0.3 % (0-4); Hematocrit 33.9 % (37.0-47.0); Hemoglobin 9.9 g/dl (12.0-16.0); Imm Gran Abs Auto 0.04 X10*3/uL (0.00-0.03); Imm Gran Pct Auto 0.3 % (0.0-0.4); Lymphocytes Absolute Auto 1.1 X10*3/uL (1.2-4.9); Lymphocytes Percent Auto 8.9 % (20-40); MANUAL DIFF FLAG NO; Mean Corpuscular HGB Conc 29.2 g/dl (31.0-35.0); Mean Corpuscular Hemoglobin 21.1 pg (27.0-33.0); Mean Corpuscular Volume 72.1 fL (80.0-98.0); Monocytes Absolute Auto 0.5 X10*3/uL (0.1-1.2); Monocytes Percent Auto 4.3 % (2-11); Neutrophils Absolute Auto 10.3 x10*3/uL (2.0-8.3); Neutrophils Percent Auto 85.9 % (45-73); Platelet Count 512 X10*3/uL (160-400); Red Cell Distribution Width 16.8 % (11.0-16.0)
--- NOTE | 2022-03-11 02:00 | ED.ABDPAIN ---
HPI - Abdominal Pain General Chief Complaint: Abdominal Pain Stated Complaint: Abd pain/Headache Time Seen by Provider: 03/11/22 01:49 History of Present Illness HPI narrative: Patient is a 47-year-old female presents today with having abdominal pain nausea vomiting history of diabetes history of status post appendectomy status post gastric bypass presents today with pains diffuse over the entire abdomen worse in the epigastric area. Associated with nausea vomiting exactly the same as the 2 previous visit. Patient had a CT scan for this it was grossly negative except for having gallstones. Patient had an ultrasound of the right upper quadrant for the same pain it shows cholelithiasis there is no evidence for cholecystitis. Continued to have the pain continued to have the nausea presented back to the emergency department there is no change in bowel movement the stool has been normal. No fever no chills no coughing positive generalized malaise. Patient is vaccinated for COVID. Related Data Home Medications Medication Instructions Recorded Confirmed levothyroxine 75 mcg tablet 75 mcg PO DAILY 01/29/20 10/07/21 pantoprazole 40 mg tablet,delayed 40 mg PO DAILY 01/29/20 10/07/21 release Previous Rx's Medication Instructions Recorded blood sugar diagnostic #10 ea 04/28/20 lancets 28 gauge #100 ea 04/28/20 albuterol sulfate 2.5 mg/3 mL 2.5 mg (3 mL) inhalation Q4-6H PRN 09/06/21 (0.083 %) solution for nebulization shortness of breath or wheezing 30 days #75 mL albuterol sulfate 90 mcg/actuation 2 puff inhalation QID PRN 10/23/21 aerosol inhaler (ProAir HFA) shortness of breath or wheezing 30 days #8.5 grams ferrous sulfate 325 mg (65 mg 325 mg PO BID #30 tabs 11/16/21 iron) tablet norethindrone (contraceptive) 0.35 0.35 mg PO DAILY #28 tabs 12/13/21 mg tablet (Rachele) medroxyprogesterone 10 mg tablet 10 mg PO DAILY 30 days #30 tabs 01/31/22 ondansetron 4 mg disintegrating 4 mg PO Q8H PRN nausea and 02/27/22 tablet vomiting #10 tabs omeprazole 20 mg capsule,delayed 20 mg PO DAILY 30 days #30 caps 01/08/23 release metoclopramide HCl 10 mg tablet 10 mg PO Q6H PRN nausea and 03/11/22 (Reglan) vomiting #20 tabs Allergies Allergy/AdvReac Type Severity Reaction Status Date / Time nickel [NICKEL] Allergy Mild RASH Verified 02/08/22 11:12 pioglitazone Allergy Unknown headache, Verified 02/08/22 11:12 vomiting, stomach upset Review of Systems Review of Systems Positive abdominal pain Yes all other systems are reviewed and are negative PMFSH Past Medical History Attestation statement: The following information was validated with the patient. Medical History Abnormal uterine bleeding (AUB) Diabetes mellitus Encounter for physical examination Hx of thyroid disease Hyperlipemia Hyperplasia of cervix Hypothyroidism Mild asthma Morbid obesity due to excess calories Obesity SAPPHIRE (obstructive sleep apnea) Sleep apnea Surgical History H/O gastric bypass H/O ventral hernia repair History of appendectomy History of lithotripsy Hx of ovarian cystectomy Family History Family History Father Diabetes mellitus Stroke Mother Diabetes mellitus CVD (cardiovascular disease) Paternal Grandmother History of breast cancer Maternal Grandmother No problems noted. Maternal Aunt Stroke Diabetes mellitus Sister In good health Maternal Grandfather Skin cancer Social History Social History Housing: Apartment Alcohol intake: never Patient Tobacco Use Status: Never used Tobacco e-Cigarette/Vaping Use: Never Used Second Hand Smoke Exposure: No Advance Directives: No Advance Directives Information Provided: Yes service: No Current occupational status: unemployed Sexual orientation: Straight/Heterosexual Cognitive needs: No Hearing needs: No Vision needs: Yes Physical Exam ED Vital Signs: Vital Signs - 24 hr 03/11/22 01:29 Temperature 97.8 F Pulse Rate 77 Respiratory Rate 20 Blood Pressure 139/82 Pulse Oximetry 100 Oxygen Delivery Method Room Air BMI result Body Mass Index 40.2 Appearance: Alert. Oriented X3. No acute distress. Eyes: Pupils equal, round and reactive to light. ENT: Pharynx normal. Neck: Normal inspection. Neck supple. No lymph nodes noted. No crepitus CVS: Normal heart rate and rhythm. Pulses normal. Normal S1 and S2 Respiratory: No respiratory distress. Breath sounds normal. No Wheezing. No rales Abdomen: Soft and nontender. No rigidity. No distention. good BS x4 Skin: Skin warm and dry. Normal skin color. Normal skin turgor. Extremities: No lower extremity edema. Neurovascular intact to all extremities. No Lacerations. No Rash Neuro: Oriented X 3. No motor deficit. No sensory deficit. Moving all extermities. No slurred speech Medical Decision Making Differential Diagnosis Patient's differential diagnosis include obstruction, perforation, pancreatitis, biliary issues, gastroparesis. Patient's CT scan of the abdomen was done few days prior. It was grossly negative for any acute evidence of obstruction abscess perforation. Patient's electrolytes are baseline. No evidence for biliary issues. Patient in addition had an ultrasound done few days ago it shows positive stone but no evidence of cholecystitis. The pain has been continuing. The nausea is continuing. Doubt this is secondary to biliary issue. History not consistent with ACS. Patient most likely had some gastroparesis with some nausea vomiting. Given some Zofran some pain medication IV fluids symptomatic Abida improved. Will discharge patient home. Patient's influenza test was negative as well. Making influenza less likely. Lab Data MDM Lab Attestation statement: I reviewed the patient's lab results. 03/11/22 01:41 03/11/22 01:41 Labs: Lab Results 03/11/22 03/11/22 03/11/22 Range/Units 01:41 01:41 01:41 WBC 12.0 H (4.8-10.8) X10*3/uL RBC 4.70 (4.20-5.50) X10*6/uL Hgb 9.9 L (12.0-16.0) g/dl Hct 33.9 L (37.0-47.0) % MCV 72.1 L (80.0-98.0) fL MCH 21.1 L (27.0-33.0) pg MCHC 29.2 L (31.0-35.0) g/dl RDW 16.8 H (11.0-16.0) % Plt Count 512 H (160-400) X10*3/uL MPV 9.0 L (9.4-12.3) fL Immature Gran % (Auto) 0.3 (0.0-0.4) % Neut % (Auto) 85.9 H (45-73) % Lymph % (Auto) 8.9 L (20-40) % [place] % (Auto) 4.3 (2-11) % Eos % (Auto) 0.3 (0-4) % Baso % (Auto) 0.3 (0-2) % Lymph # (Auto) 1.1 L (1.2-4.9) X10*3/uL [place] # (Auto) 0.5 (0.1-1.2) X10*3/uL Eos # (Auto) 0.0 (0.0-0.4) X10*3/uL Baso # (Auto) 0.0 (0.0-0.2) X10*3/uL Abs Immat Gran (auto) 0.04 H (0.00-0.03) X10*3/uL Absolute Neuts (auto) 10.3 H (2.0-8.3) x10*3/uL Absolute Nucleated RBC 0.000 (0.0-0.012) X10*3/uL Nucleated RBC % (auto) 0.0 (0.0-0.2) /100WBC Sodium 137 (135-145) mmol/L Potassium 3.6 (3.3-5.1) mmol/L Chloride 103 (96-108) mmol/L Carbon Dioxide 24 (22-29) mmol/L Anion Gap 14 (12-20) BUN 9 (9-16) mg/dL Creatinine 0.79 (0.5-1.4) mg/dL Estim Creat Clear Calc 98.3 Estimated GFR > 60 Random Glucose 169 H (60-115) mg/dL Calcium 9.2 (8.4-10.2) mg/dL Total Bilirubin 0.5 (0.0-1.0) mg/dL Direct Bilirubin 0.2 (0.0-0.5) mg/dL AST 16 (5-31) U/L ALT 15 (0-31) U/L Alkaline Phosphatase 69 (39-117) U/L Total Protein 7.5 (6.5-8.0) g/dL Albumin 4.1 (3.5-5.0) g/dL Lipase 14 (8-78) U/L COVID-19 (EVAN) (Negative) COVID-19 Clin Com Influenza Type A (BETO) Negative (Negative) Influenza Type B (BETO) Negative (Negative) Influenza A & B Note See Note 03/11/22 Range/Units 01:41 WBC (4.8-10.8) X10*3/uL RBC (4.20-5.50) X10*6/uL Hgb (12.0-16.0) g/dl Hct (37.0-47.0) % MCV (80.0-98.0) fL MCH (27.0-33.0) pg MCHC (31.0-35.0) g/dl RDW (11.0-16.0) % Plt Count (160-400) X10*3/uL MPV (9.4-12.3) fL Immature Gran % (Auto) (0.0-0.4) % Neut % (Auto) (45-73) % Lymph % (Auto) (20-40) % [place] % (Auto) (2-11) % Eos % (Auto) (0-4) % Baso % (Auto) (0-2) % Lymph # (Auto) (1.2-4.9) X10*3/uL [place] # (Auto) (0.1-1.2) X10*3/uL Eos # (Auto) (0.0-0.4) X10*3/uL Baso # (Auto) (0.0-0.2) X10*3/uL Abs Immat Gran (auto) (0.00-0.03) X10*3/uL Absolute Neuts (auto) (2.0-8.3) x10*3/uL Absolute Nucleated RBC (0.0-0.012) X10*3/uL Nucleated RBC % (auto) (0.0-0.2) /100WBC Sodium (135-145) mmol/L Potassium (3.3-5.1) mmol/L Chloride (96-108) mmol/L Carbon Dioxide (22-29) mmol/L Anion Gap (12-20) BUN (9-16) mg/dL Creatinine (0.5-1.4) mg/dL Estim Creat Clear Calc Estimated GFR Random Glucose (60-115) mg/dL Calcium (8.4-10.2) mg/dL Total Bilirubin (0.0-1.0) mg/dL Direct Bilirubin (0.0-0.5) mg/dL AST (5-31) U/L ALT (0-31) U/L Alkaline Phosphatase (39-117) U/L Total Protein (6.5-8.0) g/dL Albumin (3.5-5.0) g/dL Lipase (8-78) U/L COVID-19 (EVAN) Negative (Negative) COVID-19 Clin Com See Note Influenza Type A (BETO) (Negative) Influenza Type B (BETO) (Negative) Influenza A & B Note Medications Administered Discontinued Medications Generic Name Dose Route Start Last Admin Trade Name Freq PRN Reason Stop Dose Admin Hydromorphone HCl 0.5 mg 03/11/22 02:05 03/11/22 02:17 Hydromorphone Hcl 0.5 Mg/0.5 Ml Syringe IVPUSH 03/11/22 02:06 0.5 mg ONCE ONE Administration Protocol Sodium Chloride 1,000 mls @ 999 mls/hr 03/11/22 02:15 03/11/22 02:17 Ns IV 03/11/22 03:15 999 mls/hr .Q1H1M TERE Administration Ondansetron HCl 4 mg 03/11/22 02:05 03/11/22 02:17 Ondansetron Hcl 4 Mg/2 Ml Vial IVPUSH 03/11/22 02:06 4 mg ONCE ONE Administration Discharge Plan Discharge Clinical Impression: Vomiting Patient Disposition: Home, Self-Care Instructions: Diabetic Gastroparesis (DC), Acute Nausea and Vomiting (ED) Prescriptions: New metoclopramide HCl [Reglan] 10 mg tablet 10 mg PO Q6H PRN (Reason: nausea and vomiting) Qty: 20 0RF No Action (DME) blood sugar diagnostic Strip See Rx Instructions .ROUTE .MEDSUPPLY Qty: 10 11RF Rx Instructions: As directed (DME) lancets 28 gauge misc See Rx Instructions topical QID Qty: 100 11RF Rx Instructions: As directed albuterol sulfate 2.5 mg /3 mL (0.083 %) solution for nebulization 2.5 mg inhalation Q4-6H PRN (Reason: shortness of breath or wheezing) 30 Days Qty: 75 3RF albuterol sulfate [ProAir HFA] 90 mcg/actuation HFA aerosol inhaler 2 puff inhalation QID PRN (Reason: shortness of breath or wheezing) 30 Days Qty: 8.5 6RF ferrous sulfate 325 mg (65 mg iron) tablet 325 mg PO BID Qty: 30 5RF medroxyprogesterone 10 mg tablet 10 mg PO DAILY 30 Days Qty: 30 0RF omeprazole 20 mg capsule,delayed release(DR/EC) 20 mg PO DAILY 30 Days Qty: 30 0RF ondansetron 4 mg tablet,disintegrating 4 mg PO Q8H PRN (Reason: nausea and vomiting) Qty: 10 0RF levothyroxine 75 mcg tablet 75 mcg PO DAILY pantoprazole 40 mg tablet,delayed release (DR/EC) 40 mg PO DAILY norethindrone (contraceptive) [Rachele] 0.35 mg tablet 0.35 mg PO DAILY Qty: 28 2RF Referrals: Jess Cordoba MD [Primary Care Provider] -
[2022-03-11 02:02] LABS: Alanine Aminotransferase 15 U/L (0-31); Albumin Level 4.1 g/dL (3.5-5.0); Alkaline Phosphatase 69 U/L (39-117); Anion Gap 14 (12-20); Aspartate Amino Transferase 16 U/L (5-31); Bilirubin Direct 0.2 mg/dL (0.0-0.5); Bilirubin Total 0.5 mg/dL (0.0-1.0); Blood Urea Nitrogen 9 mg/dL (9-16); Calcium 9.2 mg/dL (8.4-10.2); Carbon Dioxide 24 mmol/L (22-29); Chloride 103 mmol/L (96-108); Creatinine Clr Calc Pharmacy 98.3; Estimated Glomerular Filt Rate > 60; Glucose Random 169 mg/dL (60-115); Lipase 14 U/L (8-78); Potassium 3.6 mmol/L (3.3-5.1); Sodium 137 mmol/L (135-145); Total Protein 7.5 g/dL (6.5-8.0)
[2022-03-11 02:04] LABS: COVID-19 Test Negative (Negative); IDNOW Serial# 16C4AD1C; IDNOW Serial# BCCEAD1C; Influenza A Negative (Negative); Influenza B2 Negative (Negative)
[2022-03-11] MEDS: HYDROmorphone HCl 0.5 MG/0.5 ML SYRINGE IVPUSH (02:17)
[2022-03-11] MEDS: ondansetron HCL 4 MG/2 ML VIAL IVPUSH (02:17)
[2022-03-11] MEDS: 0.9 % Sodium Chloride 1,000 ML 999 ML IV (02:17)
[2022-03-11 05:42] VITALS: BP 104/60; PULSE 67; RESP 20; TEMP 37.3; O2SAT 99
== END 2022-03-11 05:42 | disposition home or self-care (01) ==
PROVIDERS: Emergency Provider Emergency Medicine Emergency Medical Services; PCP Internal Medicine
DX: R51.9 Headache, unspecified (principal); R10.9 Unspecified abdominal pain; R11.2 Nausea with vomiting, unspecified; Z20.822 Contact with and (suspected) exposure to COVID-19; Z20.828 Contact with and (suspected) exposure to other viral communicable diseases; Z79.899 Other long term (current) drug therapy
CPT/HCPCS: 36415; 80048; 80076; 83690; 85025; 87502; 87635; 96361; 96374; 96375; 99283; 99284; J1170; J2405

== ENCOUNTER → 2022-03-21 08:14 | Outpatient (BNVA) | payer OTHER, SELFPAY | PROVIDERS: PCP Internal Medicine; Visit Provider Physician Assistant Surgical | DX: E66.09 Other obesity due to excess calories (principal); Z68.39 Body mass index [BMI] 39.0-39.9, adult; Z98.84 Bariatric surgery status; Z90.3 Acquired absence of stomach [part of] | CPT/HCPCS: 99212 ==

== ENCOUNTER 2022-03-24 09:55 | Outpatient (REF) | payer OTHER, SELFPAY ==
[2022-03-25 12:18] LABS: BV Int Neg Control Negative (Negative); BV Int Pos Control Positive (Positive)
== END 2022-03-24 09:56 | disposition home or self-care (01) ==
LOC: HO.LAB 09:55
PROVIDERS: PCP Internal Medicine; Visit Provider Advanced Practice Midwife
DX: Z30.431 Encounter for routine checking of intrauterine contraceptive device (principal); N89.8 Other specified noninflammatory disorders of vagina
CPT/HCPCS: 87480; 87510; 87660; 99212

== ENCOUNTER → 2022-04-11 11:21 | Outpatient (BNVA) | payer OTHER, SELFPAY | PROVIDERS: PCP Internal Medicine; Referring Provider Internal Medicine; Visit Provider Surgery | DX: K80.20 Calculus of gallbladder without cholecystitis without obstruction (principal); K21.9 Gastro-esophageal reflux disease without esophagitis; R10.13 Epigastric pain; E11.9 Type 2 diabetes mellitus without complications; E66.01 Morbid (severe) obesity due to excess calories; E03.9 Hypothyroidism, unspecified; G47.33 Obstructive sleep apnea (adult) (pediatric); D50.9 Iron deficiency anemia, unspecified; Z90.3 Acquired absence of stomach [part of]; Z68.41 Body mass index [BMI] 40.0-44.9, adult | CPT/HCPCS: 99202 ==

== ENCOUNTER 2022-04-12 09:04 | Outpatient (REF) | payer OTHER, SELFPAY ==
[2022-04-12 09:23] LABS: MANUAL DIFF FLAG NO
[2022-04-12 10:25] LABS: Basophils Absolute Auto 0.1 X10*3/uL (0.0-0.2); Basophils Percent Auto 0.7 % (0-2); Eosinophils Absolute Auto 0.3 X10*3/uL (0.0-0.4); Eosinophils Percent Auto 3.7 % (0-4); Hematocrit 33.1 % (37.0-47.0); Hemoglobin 9.5 g/dl (12.0-16.0); Imm Gran Abs Auto 0.02 X10*3/uL (0.00-0.03); Imm Gran Pct Auto 0.2 % (0.0-0.4); Lymphocytes Absolute Auto 1.7 X10*3/uL (1.2-4.9); Lymphocytes Percent Auto 21.4 % (20-40); Mean Corpuscular HGB Conc 28.7 g/dl (31.0-35.0); Mean Corpuscular Volume 73.1 fL (80.0-98.0); Mean Platelet Volume 9.5 fL (9.4-12.3); Monocytes Absolute Auto 0.6 X10*3/uL (0.1-1.2); Neutrophils Absolute Auto 5.4 x10*3/uL (2.0-8.3); Platelet Count 475 X10*3/uL (160-400); Red Blood Count 4.53 X10*6/uL (4.20-5.50); White Blood Count 8.1 X10*3/uL (4.8-10.8)
[2022-04-12 10:26] LABS: Estimated Average Glucose 148 mg/dL; Hemoglobin A1c % 6.8 %
[2022-04-12 10:41] LABS: Alanine Aminotransferase 13 U/L (0-31); Albumin Level 3.9 g/dL (3.5-5.0); Alkaline Phosphatase 74 U/L (39-117); Anion Gap 14 (12-20); Aspartate Amino Transferase 15 U/L (5-31); Bilirubin Total 0.5 mg/dL (0.0-1.0); Blood Urea Nitrogen 13 mg/dL (9-16); Calcium 9.1 mg/dL (8.4-10.2); Carbon Dioxide 25 mmol/L (22-29); Chloride 104 mmol/L (96-108); Estimated Glomerular Filt Rate > 60; Glucose Random 134 mg/dL (60-115); Potassium 4.1 mmol/L (3.3-5.1); Sodium 139 mmol/L (135-145); Total Protein 7.1 g/dL (6.5-8.0)
[2022-04-12 11:03] LABS: Folate 12.6 ng/mL (> or = 4.0); Vitamin B12 461 pg/mL (200-900)
== END 2022-04-12 09:05 | disposition home or self-care (01) ==
LOC: HO.LAB 09:04
PROVIDERS: Absent Provider Physician Assistant Surgical; PCP Internal Medicine; Visit Provider Surgery
DX: R10.13 Epigastric pain (principal); D50.9 Iron deficiency anemia, unspecified; E11.9 Type 2 diabetes mellitus without complications; E66.01 Morbid (severe) obesity due to excess calories; G47.33 Obstructive sleep apnea (adult) (pediatric)
CPT/HCPCS: 36415; 80053; 82607; 82746; 83036; 84134; 85025

== ENCOUNTER → 2022-04-19 13:57 | Outpatient (BNVA) | payer OTHER, SELFPAY | PROVIDERS: PCP Internal Medicine; Referring Provider Internal Medicine; Visit Provider Surgery | DX: R10.13 Epigastric pain (principal); K80.20 Calculus of gallbladder without cholecystitis without obstruction; K21.9 Gastro-esophageal reflux disease without esophagitis; Z90.3 Acquired absence of stomach [part of]; D50.9 Iron deficiency anemia, unspecified; E66.01 Morbid (severe) obesity due to excess calories; E11.9 Type 2 diabetes mellitus without complications; G47.33 Obstructive sleep apnea (adult) (pediatric); J45.30 Mild persistent asthma, uncomplicated; Z68.39 Body mass index [BMI] 39.0-39.9, adult | CPT/HCPCS: 99212 ==

== ENCOUNTER → 2022-05-05 10:50 | Day surgery (SDC) | payer OTHER, SELFPAY ==
--- NOTE | 2022-05-04 10:58 | HO.ANESPROP2 ---
Documented by User: Olya Moore NP 05/04/22 10:59 HPI - Anesthesia Eval Consult details Narrative: 47yo F for Upper Endoscopy possible bx PMFSH Active Problems Active Problems: All Active Problems (Updated 05/02/22 @ 10:56 by Meghna Jo, RN) Breast abscess (Acute) Cholelithiasis (Acute) Iron deficiency anemia (Acute) Chronic GERD (Acute) Epigastric abdominal pain (Acute) Status post sleeve gastrectomy (Acute) Abnormal uterine bleeding (AUB) (Acute) Morbid obesity due to excess calories (Acute) Diabetes mellitus (Acute) Encounter for physical examination (Acute) SAPPHIRE (obstructive sleep apnea) (Acute) Mild asthma (Acute) Obesity (Acute) Hypothyroidism (Acute) Past Medical History Medical History Abnormal uterine bleeding (AUB) Diabetes mellitus Hx of thyroid disease Hyperlipemia Hyperplasia of cervix Hypothyroidism Mild asthma Morbid obesity due to excess calories Obesity SAPPHIRE (obstructive sleep apnea) Sleep apnea Family History Family History Father Diabetes mellitus Stroke Mother Diabetes mellitus CVD (cardiovascular disease) Paternal Grandmother History of breast cancer Maternal Grandmother No problems noted. Maternal Aunt Stroke Diabetes mellitus Sister In good health Maternal Grandfather Skin cancer Surgical History Surgical History (Updated 05/02/22 @ 10:56 by Meghna Jo RN) H/O ventral hernia repair History of appendectomy History of lithotripsy Hx of ovarian cystectomy Status post sleeve gastrectomy Social History Social History Housing: Apartment Alcohol intake: never Patient Tobacco Use Status: Never used Tobacco e-Cigarette/Vaping Use: Never Used Second Hand Smoke Exposure: No Are you DNR?: No Advance Directives: No Advance Directives Information Provided: Yes Nutrition Risks: No Nutritional Risk service: No Current occupational status: unemployed Sexual orientation: Straight/Heterosexual Cognitive needs: No Hearing needs: No Vision needs: Yes Meds Allergies Allergy/AdvReac Type Severity Reaction Status Date / Time nickel [NICKEL] Allergy Mild RASH Verified 05/02/22 10:50 pioglitazone Allergy Unknown headache, Verified 05/02/22 10:50 vomiting, stomach upset Home Medications Medication Instructions Recorded Confirmed Last Taken Type levothyroxine 75 mcg tablet 75 mcg PO DAILY 01/29/20 05/02/22 Unknown History levonorgestrel 20 mcg/24 hours (8 intrauterine 03/21/22 04/19/22 Unknown History yrs) 52 mg intrauterine device (Mirena) Exam Exam Date and Time: May 04, 2022 1058 Pertinent Lab Results Pertinent Lab Results: Laboratory Tests 04/12/22 04/12/22 09:22 09:22 WBC 8.1 Hgb 9.5 L Hct 33.1 L Plt Count 475 H Sodium 139 Potassium 4.1 Chloride 104 Carbon Dioxide 25 BUN 13 Creatinine 0.76 Assessment and Plan Assessment Anesthesia Assessment: Chart Reviewed Documented by User: Merari Coley MD 05/05/22 13:00 [facility] Past Medical History Medical History Abnormal uterine bleeding (AUB) Diabetes mellitus Hx of thyroid disease Hyperlipemia Hyperplasia of cervix Hypothyroidism Mild asthma Morbid obesity due to excess calories Obesity SAPPHIRE (obstructive sleep apnea) Sleep apnea Family History Family History Father Diabetes mellitus Stroke Mother Diabetes mellitus CVD (cardiovascular disease) Paternal Grandmother History of breast cancer Maternal Grandmother No problems noted. Maternal Aunt Stroke Diabetes mellitus Sister In good health Maternal Grandfather Skin cancer Family history of problems with anesthesia: No Surgical History Surgical History (Updated 05/02/22 @ 10:56 by Meghna Jo, RN) H/O ventral hernia repair History of appendectomy History of lithotripsy Hx of ovarian cystectomy Status post sleeve gastrectomy History of Problems with Anesthesia: No Social History Social History Housing: Apartment Alcohol intake: never Patient Tobacco Use Status: Never used Tobacco e-Cigarette/Vaping Use: Never Used Second Hand Smoke Exposure: No Are you DNR?: No Advance Directives: No Advance Directives Information Provided: Yes Nutrition Risks: No Nutritional Risk service: No Current occupational status: unemployed Sexual orientation: Straight/Heterosexual Cognitive needs: No Hearing needs: No Vision needs: Yes Meds Allergies Allergy/AdvReac Type Severity Reaction Status Date / Time nickel [NICKEL] Allergy Mild RASH Verified 05/02/22 10:50 pioglitazone Allergy Unknown headache, Verified 05/02/22 10:50 vomiting, stomach upset Home Medications Medication Instructions Recorded Confirmed Last Taken Type levothyroxine 75 mcg tablet 75 mcg PO DAILY 01/29/20 05/02/22 Unknown History levonorgestrel 20 mcg/24 hours (8 intrauterine 03/21/22 04/19/22 Unknown History yrs) 52 mg intrauterine device (Mirena) Exam Airway Mallampati Class: III TM Dist: >3cm Neck ROM: Full Assessment and Plan Assessment Anesthesia Assessment: Anesthesia Plan Discussed Final Anesthetic Review Family History of Problems with Anesthesia: No History of Problems with Anesthesia: No NPO: Yes ASA Class: III Final Preanesthetic Review: No Changes in Pt Med Stat, Meds/Allgs Chart Reviewed, Consent Obtained/Reviewed and Anes Risks/Benef Reviewed Patient Risk: Intermediate Procedure Risk: Low Anesthetic Plan Anesthetic Plan: MAC: Disposition: Standard PACU
[2022-05-05 11:32] LABS: UPreg QC Valid YES; Urine Pregnancy NEGATIVE (NEGATIVE)
[2022-05-05] MEDS: Lactated Ringers 1,000 ML 100 ML IVCONT (11:47)
[2022-05-05 11:56] VITALS: BMI 39.9
[2022-05-05 12:19] VITALS: BP 99/70; PULSE 72; RESP 18; TEMP 36.6; O2SAT 96
[2022-05-05 12:26] LABS: Glucose, Whole Blood 111 mg/dL (60-115)
--- NOTE | 2022-05-05 12:56 | MHC.SHP ---
Pre-Procedural Eval Section A Date of Service: 05/05/22 The patient is an INPATIENT: No The History & Physical has been completed within 30 days and I have reviewed it.: Yes Section B Chief Complaint: Epigastric pain Allergies: Allergies Allergy/AdvReac Type Severity Reaction Status Date / Time nickel [NICKEL] Allergy Mild RASH Verified 05/02/22 10:50 pioglitazone Allergy Unknown headache, Verified 05/02/22 10:50 vomiting, stomach upset Plan I have reviewed the history and physical and performed a pertinent physical examination on my patient. No changes have occurred unless specified. Time Spent With Patient Time: Total time managing care of this patient today ____ minutes.
--- NOTE | 2022-05-05 12:57 | W.PM.OPN ---
Operative Note Operative Note Date of Service: 05/05/22 Narrative: Preop diagnosis: [Epigastric pain improved with PPI, status post sleeve gastrectomy, gallstone] Postop diagnosis: [Gastritis, path pending] Procedure: [EGD with Biopsy] Surgeon: Brock Grayson MD Assist: [] Anesthesia: [MAC] Estimated blood loss: [3cc] Specimen: [1) gastric sleeve antrum area; 2) gastric sleeve body ] Intraoperative findings: [grossly normal sleeve morphology, no strictures, ulcer or masses; hyperemia in the sleeve body, path pending; normal duodenal bulb & duodenum, second portion. Z line at 36cm, crisp without HH, Green's or GERD findings] Indications: [The patient is a 47-year-old woman who is status post sleeve gastrectomy who has had episodes of epigastric pain associated with vomiting and interval improvement on prescription PPI. In her workup, she had an ultrasound that demonstrated gallstones. Given the equivocal presentation, I recommended an EGD and biopsies to assess for gastritis or H pylori since the patient reported improvement of her symptoms with a proton pump inhibitor. The possible need for laparoscopic cholecystectomy was reviewed with the patient and the need for this procedure to help discern a plan was reviewed. In addition, the inherent risks of an EGD including aspiration, perforation or injury that could require emergent surgery, delayed complications, possible of the of no change in her management and the possible need for referral to a foreign language interpreter was all discussed and apparently understood. Patient seemed understand her options and wanted me to proceed.] Procedure: [The patient was identified in the preoperative holding area and again and operating suite 3. She was placed in left lateral decubitus position with bite block and O2 nasal cannula in place. An appropriate time-out confirming her name and equipment was done with the patient awake, then MAC was administered with excellent effect The Olympus 190 was advanced through the bite block under direct vision per os into the cricopharyngeal portion of the esophagus under direct vision. In upon entering the esophagus, grossly normal mucosa was seen. The scope was advanced carefully and the Z-line noted to be crisp in intact at 36 cm with no hiatal hernia or regularity consistent with GERD. Scope was then advanced into the sleeve, body portion and some hyperemia noted. Scant secretions were present so the scope was advanced to the 2nd portion of the duodenum which was photographed and grossly appeared normal, as did the duodenal bulb. The scope was withdrawn into the tan antral area of the sleeve gastrectomy and biopsies done to assess for H pylori given the patient's epigastric pain. After confirming good hemostasis, the scope was withdrawn into the body of the sleeve and some hyperemia seen but there was no stricture, ulcer, mass. The overall morphology of the sleeve was quite good with no anomalies. After ensuring good hemostasis at the biopsy sites, the scope was used to aspirate the remaining gas and withdrawn. The patient tolerated the procedure well. She will continue her PPI. She requested I call her , Cirilo at [phone]. He was advised of the findings and that she should avoid aspirin/NSAIDs and alcohol and follow-up with me in 1-2 weeks for biopsies. She should also continue the PPI, which has refills.]
[2022-05-05 13:35] VITALS: BP 130/70; PULSE 82; RESP 17; TEMP 36.4; O2SAT 100
[2022-05-05 13:50] VITALS: BP 111/70; PULSE 72; RESP 16; O2SAT 100
[2022-05-05 14:05] VITALS: BP 117/71; PULSE 66; RESP 16; TEMP 36.4; O2SAT 100
== END | disposition home or self-care (01) ==
PROVIDERS: Nurse Practitioner; PCP Internal Medicine; Visit Provider Surgery
PROC: 0DJ08ZZ Inspection of Upper Intestinal Tract, Via Natural or Artificial Opening Endoscopic (ICD-10-PCS; CPT 43235; principal; 2022-05-05 12:30)
DX: K29.50 Unspecified chronic gastritis without bleeding (principal); Z98.84 Bariatric surgery status; Z90.3 Acquired absence of stomach [part of]; K21.9 Gastro-esophageal reflux disease without esophagitis; K31.89 Other diseases of stomach and duodenum; D50.9 Iron deficiency anemia, unspecified; K80.20 Calculus of gallbladder without cholecystitis without obstruction; G47.33 Obstructive sleep apnea (adult) (pediatric); E66.01 Morbid (severe) obesity due to excess calories; Z68.39 Body mass index [BMI] 39.0-39.9, adult; E03.9 Hypothyroidism, unspecified; N92.0 Excessive and frequent menstruation with regular cycle; J45.30 Mild persistent asthma, uncomplicated; E78.5 Hyperlipidemia, unspecified; E11.9 Type 2 diabetes mellitus without complications; Z79.84 Long term (current) use of oral hypoglycemic drugs; Z79.899 Other long term (current) drug therapy; Z88.8 Allergy status to other drugs, medicaments and biological substances
CPT/HCPCS: 43239; 81025; 82947; 88305; 88342; J3010

== ENCOUNTER → 2022-05-13 12:54 | Outpatient (BNVA) | payer OTHER, SELFPAY | PROVIDERS: PCP Internal Medicine; Visit Provider Surgery | DX: K80.20 Calculus of gallbladder without cholecystitis without obstruction (principal); K21.9 Gastro-esophageal reflux disease without esophagitis; R10.13 Epigastric pain; D50.9 Iron deficiency anemia, unspecified; E66.01 Morbid (severe) obesity due to excess calories; E11.9 Type 2 diabetes mellitus without complications; G47.33 Obstructive sleep apnea (adult) (pediatric); Z90.3 Acquired absence of stomach [part of] | CPT/HCPCS: 99212 ==

== ENCOUNTER 2022-05-26 05:53 | Day surgery (SDC) | payer OTHER, SELFPAY ==
[2022-05-20 12:04] VITALS: BMI 41.9
--- NOTE | 2022-05-25 09:16 | P.CONAN_ITS ---
Documented by User: Olya Moore NP 05/25/22 09:21 HPI - Anesthesia Eval Consult details Narrative: 47yo F for Cholecystectomy Laparoscopic possible open s/p EGD 05/05/22 with MAC PMF Active Problems Active Problems: All Active Problems (Updated 05/20/22 @ 12:03 by Meghna Jo, RN) Encounter for physical examination (Acute) Breast abscess (Acute) Cholelithiasis (Acute) Iron deficiency anemia (Acute) Chronic GERD (Acute) Epigastric abdominal pain (Acute) Status post sleeve gastrectomy (Acute) Abnormal uterine bleeding (AUB) (Acute) Morbid obesity due to excess calories (Acute) Diabetes mellitus (Acute) SAPPHIRE (obstructive sleep apnea) (Acute) Mild asthma (Acute) Obesity (Acute) Hypothyroidism (Acute) Past Medical History Medical History (Updated 05/20/22 @ 12:03 by Meghna Jo, RN) Abnormal uterine bleeding (AUB) Diabetes mellitus GERD (gastroesophageal reflux disease) Hx of thyroid disease Hyperlipemia Hyperplasia of cervix Hypothyroidism Mild asthma Morbid obesity due to excess calories Obesity SAPPHIRE (obstructive sleep apnea) Sleep apnea Family History Family History Father Diabetes mellitus Stroke Mother Diabetes mellitus CVD (cardiovascular disease) Paternal Grandmother History of breast cancer Maternal Grandmother No problems noted. Maternal Aunt Stroke Diabetes mellitus Sister In good health Maternal Grandfather Skin cancer Family history of problems with anesthesia: No Surgical History Surgical History (Updated 05/20/22 @ 11:54 by Meghna Jo RN) H/O ventral hernia repair History of appendectomy History of esophagogastroduodenoscopy (EGD) History of lithotripsy Hx of ovarian cystectomy Status post sleeve gastrectomy History of Problems with Anesthesia: No Social History Social History Housing: Apartment Alcohol intake: never Patient Tobacco Use Status: Never used Tobacco e-Cigarette/Vaping Use: Never Used Second Hand Smoke Exposure: No service: No Current occupational status: unemployed Sexual orientation: Straight/Heterosexual Cognitive needs: No Hearing needs: No Vision needs: Yes Meds Allergies Allergy/AdvReac Type Severity Reaction Status Date / Time nickel [NICKEL] Allergy Mild RASH Verified 05/20/22 11:57 pioglitazone Allergy Unknown headache, Verified 05/20/22 11:57 vomiting, stomach upset Home Medications Medication Instructions Recorded Confirmed Last Taken Type levothyroxine 75 mcg tablet 75 mcg PO DAILY 01/29/20 05/20/22 05/25/22 History levonorgestrel 21 mcg/24 hours (8 intrauterine 03/21/22 05/13/22 Unknown History yrs) 52 mg intrauterine device (Mirena) Exam Exam Date and Time: May 25, 2022 0916 Height,Weight and Vital Signs: Height 5 ft 1 in Weight 100.698 kg Pertinent Lab Results Pertinent Lab Results: Laboratory Tests 04/12/22 04/12/22 09:22 09:22 WBC 8.1 Hgb 9.5 L Hct 33.1 L Plt Count 475 H Sodium 139 Potassium 4.1 Chloride 104 Carbon Dioxide 25 BUN 13 Creatinine 0.76 Laboratory Tests 04/12/22 04/12/22 09:22 09:22 Hemoglobin A1c % 6.8 Total Bilirubin 0.5 AST 15 ALT 13 Alkaline Phosphatase 74 Total Protein 7.1 Albumin 3.9 Prealbumin 18.0 L Assessment and Plan Assessment Anesthesia Assessment: Chart Reviewed Final Anesthetic Review Family History of Problems with Anesthesia: No History of Problems with Anesthesia: No Documented by User: Mitch Chung MD 05/26/22 08:24 [facility] Past Medical History Medical History (Updated 05/20/22 @ 12:03 by Meghna Jo RN) Abnormal uterine bleeding (AUB) Diabetes mellitus GERD (gastroesophageal reflux disease) Hx of thyroid disease Hyperlipemia Hyperplasia of cervix Hypothyroidism Mild asthma Morbid obesity due to excess calories Obesity SAPPHIRE (obstructive sleep apnea) Sleep apnea Patient : No Family History Family History Father Diabetes mellitus Stroke Mother Diabetes mellitus CVD (cardiovascular disease) Paternal Grandmother History of breast cancer Maternal Grandmother No problems noted. Maternal Aunt Stroke Diabetes mellitus Sister In good health Maternal Grandfather Skin cancer Surgical History Surgical History (Updated 05/20/22 @ 11:54 by Meghna Jo RN) H/O ventral hernia repair History of appendectomy History of esophagogastroduodenoscopy (EGD) History of lithotripsy Hx of ovarian cystectomy Status post sleeve gastrectomy Social History Social History Housing: Apartment Alcohol intake: never Patient Tobacco Use Status: Never used Tobacco e-Cigarette/Vaping Use: Never Used Second Hand Smoke Exposure: No service: No Current occupational status: unemployed Sexual orientation: Straight/Heterosexual Cognitive needs: No Hearing needs: No Vision needs: Yes Meds Allergies Allergy/AdvReac Type Severity Reaction Status Date / Time nickel [NICKEL] Allergy Mild RASH Verified 05/20/22 11:57 pioglitazone Allergy Unknown headache, Verified 05/20/22 11:57 vomiting, stomach upset Home Medications Medication Instructions Recorded Confirmed Last Taken Type levothyroxine 75 mcg tablet 75 mcg PO DAILY 01/29/20 05/20/22 05/25/22 History levonorgestrel 21 mcg/24 hours (8 intrauterine 03/21/22 05/13/22 Unknown History yrs) 52 mg intrauterine device (Mirena) Exam Airway Mallampati Class: II TM Dist: <=3cm Neck ROM: Full (short neck) Heart: ok Lungs: ok Assessment and Plan Assessment Anesthesia Assessment: Anesthesia Plan Discussed Final Anesthetic Review NPO: Yes ASA Class: III Final Preanesthetic Review: No Changes in Pt Med Stat, Meds/Allgs Chart Reviewed, Consent Obtained/Reviewed and Anes Risks/Benef Reviewed Patient Risk: Intermediate Procedure Risk: Intermediate Anesthetic Plan Anesthetic Plan: GA and Agree w/ Assess. and Plan Disposition: Standard PACU
[2022-05-26] VITALS (8 sets, daily range): BP systolic 116–135; BP diastolic 70–87; PULSE 62–92; RESP 15–22; TEMP 36.1–37.2; O2SAT 92–100
--- NOTE | 2022-05-26 | ECG_ITS ---
Test Reason : DM HTN SAPPHIRE Blood Pressure : / mmHG Vent. Rate : 064 BPM Atrial Rate : 064 BPM P-R Int : 140 ms QRS Dur : 074 ms QT Int : 400 ms P-R-T Axes : 034 000 001 degrees QTc Int : 412 ms Normal sinus rhythm Normal ECG No significant changes when compared with the previous EKG of 09 jul 2019 Referred By: Olya Moore Electronically Signed By:BREEZY SHELTON
[2022-05-26 06:12] LABS: Glucose, Whole Blood 104 mg/dL (60-115)
[2022-05-26 06:13] LABS: UPreg QC Valid YES; Urine Pregnancy NEGATIVE (NEGATIVE)
[2022-05-26] MEDS: Lactated Ringers 1,000 ML 100 ML IVCONT ×2 (06:34→06:35)
--- NOTE | 2022-05-26 06:57 | MHC.SHP ---
Pre-Procedural Eval Section A Date of Service: 05/26/22 The patient is an INPATIENT: No The History & Physical has been completed within 30 days and I have reviewed it.: Yes Section B Chief Complaint: Calculus of gallbladder without cholecystitis with Allergies: Allergies Allergy/AdvReac Type Severity Reaction Status Date / Time nickel [NICKEL] Allergy Mild RASH Verified 05/20/22 11:57 pioglitazone Allergy Unknown headache, Verified 05/20/22 11:57 vomiting, stomach upset Plan I have reviewed the history and physical and performed a pertinent physical examination on my patient. No changes have occurred unless specified. Time Spent With Patient Time: Total time managing care of this patient today ____ minutes.
--- NOTE | 2022-05-26 07:21 | PCN2_ITS ---
Brief Operative Note Date of procedure: 05/26/22 Procedure: Preop diagnosis: [Biliary colic] Postop diagnosis: [same] Procedure: [Laparoscopic cholecystectomy] Surgeon: Brock Grayson MD Assist: [] Anesthesia: [GET, Marcaine, 0.5% with epinephrine] Estimated blood loss: [3cc] Specimen: [Gallbladder and contents] Intraoperative findings: [4 mm cystic duct; 3 mm cystic artery. Critical view of safety demonstrated, NAFLD] Indications: [The patient is a 47-year-old woman who is status post laparoscopic sleeve gastrectomy and had some issues with weight gain as well as developing gallstones. She has had symptoms that resembled both gastritis but EGD showed no ulcers nor H pylori; she has also had episodes of what sound like biliary colic and given her clinical presentation, gallstones and normal liver function tests, I recommended a laparoscopic cholecystectomy. I explained the symptoms of biliary colic and recommended laparoscopic cholecystectomy. I reviewed the option of continued observation and 2nd opinion which was declined. I also reviewed the inherent risks to surgery which include, but are not limited to: Bleeding that could require another operation or blood transfusion, the need for open surgery, the unlikely but possible issue of bile leak that could require an ERCP, the risk of retained common duct stones that could require an ERCP, the risk of common bile duct injury which would require transfer to a larger institution for another operation. Patient seemed to understand her options, declined a crematorium operator or 2nd opinion and wants to proceed. The patient seemed understand the medical decision making and wanted to proceed with lap choly. Activity restrictions, work restrictions and diet were reviewed in advance. ] Procedure: [The patient was identified in the preoperative holding area and again in operating room 3 and placed supine on the table. She had voided her urinary bladder recreation program coordinator, SCDs were in place and she received Ancef, 2 g IV. She had was induced in general endotracheal anesthesia administered with excellent effect. Her abdomen was widely prepped and draped using chlorprep. An appropriate time-out was performed and preemptive local used at all trocar insertion sites. Began in the patient's left upper quadrant given her prior midline infraumbilical scar and placed a Veress needle through a stab incision. An appropriate drop test was performed. The needle was connected to high flow and opening pressures were 7 mmHg. A pneumoperitoneum of 15 mmHg was then obtained using carbon dioxide and I accessed the patient's abdomen through the right side of the abdomen in the anterior axillary line at the level of the umbilicus using a 5 mm Optiview trocar and 30 degree/5 mm laparoscopic without incident. Next a a 5 mm epigastric and 5 mm right subcostal port were placed with preemptive analgesia under direct laparoscopic vision and limited lysis of adhesions adding about 5 minutes to the case was performed to dissect omentum from the umbilical area to allow placement of a 12 mm trocar. The gallbladder was clearly identified and grasped by its fundus. It was retracted cranially and anteriorly and dissection began in the cystic triangle. The cystic duct was identified at its junction on the gallbladder and dissection began laterally, then circumferentially dissected using the [place] dissector and hook. The cystic artery was then carefully identified and circumferentially dissected. Once dissection of both structures was complete and the critical view of safety demonstrated, the duct and artery were double clipped proximally and once distally and sharply divided. Electrocautery was used to remove the gallbladder from its fossa on the liver. Liver bed was inspected for hemostasis and the clips were noted to be on the respective structures. The gallbladder was placed in an Endo-Catch bag and delivered thro ugh the umbilicus under direct laparoscopic vision. The abdomen was again inspected with the laparoscoped and a abdomen deflated to assess for hemostasis. The patient was returned to neutral position, the abdomen deflated and the fascia of the supraumbilical incision closed with interrupted #1 Polysorbl sutures using a suture passer. Skin was closed with 4- 0 Monocryl subcuticular sutures. Mastisol and Steri-Strips were applied to the skin incisions followed by Band-Aids. The patient tolerated the procedure well and was extubated recovered in stable condition. All sponge instrument counts were correct x2.
[2022-05-26] MEDS: ondansetron HCL 4 MG/2 ML VIAL IVPUSH (09:46)
[2022-05-26] MEDS: Scopolamine 1.5 MG PATCH.TD.3 EAR-BEHIND (10:42)
== END 2022-05-26 11:03 | disposition home or self-care (01) ==
LOC: HO.SSS 05:53
PROVIDERS: Nurse Practitioner; PCP Internal Medicine; Visit Provider Surgery
PROC: 0FT44ZZ Resection of Gallbladder, Percutaneous Endoscopic Approach (ICD-10-PCS; CPT 47562; principal; 2022-05-26 07:30)
DX: K80.10 Calculus of gallbladder with chronic cholecystitis without obstruction (principal); E66.01 Morbid (severe) obesity due to excess calories; Z68.41 Body mass index [BMI] 40.0-44.9, adult; K21.9 Gastro-esophageal reflux disease without esophagitis; J45.909 Unspecified asthma, uncomplicated; D50.9 Iron deficiency anemia, unspecified; G47.33 Obstructive sleep apnea (adult) (pediatric); E03.9 Hypothyroidism, unspecified; E11.9 Type 2 diabetes mellitus without complications; Z79.84 Long term (current) use of oral hypoglycemic drugs; Z79.899 Other long term (current) drug therapy; Z87.442 Personal history of urinary calculi; Z98.84 Bariatric surgery status; Z90.3 Acquired absence of stomach [part of]; Z88.8 Allergy status to other drugs, medicaments and biological substances
CPT/HCPCS: 47562; 81025; 82947; 88304; 93005; J0690; J2250; J2405; J3010

== ENCOUNTER → 2022-06-03 10:12 | Outpatient (BNVA) | payer OTHER, SELFPAY | PROVIDERS: PCP Internal Medicine; Visit Provider Surgery | DX: Z90.49 Acquired absence of other specified parts of digestive tract (principal); Z90.3 Acquired absence of stomach [part of] | CPT/HCPCS: 99212 ==

== ENCOUNTER 2022-08-05 08:40 | Outpatient (REF) | payer OTHER, SELFPAY ==
--- NOTE | ~2022-08-05 | MM_ITS ---
EXAMINATION: MM SCREENING DIGITAL BREAST TOMOSYNTHESIS, BILATERAL CLINICAL INFORMATION: Screening. Asymptomatic. The lifetime risk of breast cancer based on the Tyrer-Cuzick Model is 19%. COMPARISON: Mammography: 08/04/2021, 05/08/2020, 05/03/2019, 03/14/2018 TECHNIQUE: Digital breast tomosynthesis is performed in both the craniocaudal and mediolateral oblique views along with computer-aided detection (CAD). Synthesized 2D images are generated from the tomosynthesis. FINDINGS: There are scattered areas of fibroglandular density (ACR BI-RADS breast composition Category b). There are no significant masses, abnormal calcifications, or other abnormalities. Parenchymal pattern is similar to prior studies. There is no developing density or architectural abnormality. The axilla and skin contours are unremarkable. No significant changes. MM/MM tomosynthesis screening BI IMPRESSION: No mammographic evidence of malignancy. ASSESSMENT: BI-RADS 1: Negative RECOMMENDATION: Routine annual mammography screening. This patient's information was entered into a reminder system with a target due date for their next mammogram.
== END 2022-08-05 08:41 | disposition home or self-care (01) ==
LOC: HO.MAMMO 08:40
PROVIDERS: PCP Internal Medicine; Visit Provider Internal Medicine
DX: Z12.31 Encounter for screening mammogram for malignant neoplasm of breast (principal)
CPT/HCPCS: 77063; 77067

== ENCOUNTER → 2022-08-25 11:02 | Outpatient (BNVA) | payer OTHER, SELFPAY | PROVIDERS: PCP Internal Medicine; Visit Provider Advanced Practice Midwife ==

== ENCOUNTER 2022-09-21 14:07 | Outpatient (AMB) | payer OTHER, SELFPAY ==
[2022-09-21 14:13] VITALS: BP 130/80; BMI 40.2
--- NOTE | 2022-09-21 14:13 | MHC.PC.OV ---
Vital Signs 09/21/22 14:13 Height 5 ft 2 in Weight 220 lb BMI 40.2 BP 130/80 Blood Pressure Location Lt brachial Position Sitting Intake Visit Reasons: low blood pressure Intake Note: Patient here for low blood pressure Electrocardiogram Technician Required: No Accompanied by: Self / Same As Patient Allergies nickel [NICKEL] Allergy (Mild, Verified 09/21/22 14:24) RASH pioglitazone Allergy (Unknown, Verified 09/21/22 14:24) headache, vomiting, stomach upset Medication List - Last Reconciled 09/21/22 by Jess Messina MD albuterol sulfate 2.5 mg (3 mL) inhalation Q4-6H PRN 30 days albuterol sulfate 90 mcg/actuation (Ventolin HFA) 2 puffs PO QID PRN blood sugar diagnostic As directed levonorgestrel (Mirena) intrauterine omeprazole 20 mg PO DAILY Tobacco use date assessed: 08/08/22 Dental Screening Dental Screen Date: 09/21/22 Did you have a dental visit in the last 12 months?: Yes Did you have a dental problem in the last 6 months where you did not have access to dental care?: No Was dental information given to patient?: Patient has dentist HPI HPI Comments History of Present Illness Details This is a 47-year-old female with diabetes mellitus type 2, GERD, asthma and morbid obesity that comes today complaining of having low blood pressure that started about a week ago. When her blood pressure is less than 90/60 she has a headache and feel dizzy. Today blood pressure normal. Blood pressure will be recheck by nurse navigator in 3 weeks. Last A1c was within goal with diet. GERD stable with medications. She has rescue inhaler less than once a month. She is morbidly obese with a BMI of 40.2 and was advised to call weight management. [facility] Medical History (Updated 09/21/22 @ 16:45 by Jess Messina MD) Abnormal uterine bleeding (AUB) Diabetes mellitus GERD (gastroesophageal reflux disease) Hirsutism Hx of thyroid disease Hyperlipemia Hyperplasia of cervix Hypothyroidism Mild asthma Morbid obesity due to excess calories Obesity SAPPHIRE (obstructive sleep apnea) Sleep apnea Surgical History H/O ventral hernia repair History of appendectomy History of esophagogastroduodenoscopy (EGD) History of lithotripsy Hx laparoscopic cholecystectomy (05/26/22) Hx of ovarian cystectomy Status post sleeve gastrectomy Family History Father Diabetes mellitus Stroke Mother Diabetes mellitus CVD (cardiovascular disease) Paternal Grandmother History of breast cancer Maternal Grandmother No problems noted. Maternal Aunt Stroke Diabetes mellitus Sister In good health Maternal Grandfather Skin cancer Social History Housing: Apartment Alcohol intake: never Patient Tobacco Use Status: Never used Tobacco e-Cigarette/Vaping Use: Never Used Second Hand Smoke Exposure: No service: No Current occupational status: unemployed Sexual orientation: Straight/Heterosexual Cognitive needs: No Hearing needs: No Vision needs: Yes Female Reproductive History Menstrual Age of Menarche: 10 Questionnaire Thrive Questionnaire Date Thrive assessed: 04/13/21 SAVANNAH-7 AMB Questionnaire SAVANNAH-7 Date SAVANNAH - 7 assessed: 03/22/22 Source: Developed by Drs. Epifanio Montiel, Liza Oglesby, Jack Gonzáles and colleagues, with an educational almita from [employer]. Review of Systems Const All systems reviewed & are unremarkable except as noted in HPI and below Eyes Reports no additional complaints, Denies change in vision and Denies other visual disturbances Card Denies chest pain at rest, Denies chest pain with activity, Denies edema, Denies irregular heart rhythm, Denies claudication, Denies dyspnea, Denies dyspnea on exertion, Denies orthopnea, Denies paroxysmal nocturnal dyspnea and Denies slow heart rate Resp Denies cough, Denies dyspnea and Denies dyspnea on exertion GI Denies abdominal pain, Denies change in bowel habits, Denies excessive flatus, Denies nausea and Denies vomiting Denies urinary incontinence, Denies urinary hesitancy and Denies urinary urgency Musc Denies abnormal gait, Denies atrophy, Denies deformity and Denies limited range of motion Skin/Breast Denies bleeding lesions, Denies changing lesions and Denies rash Neuro Denies abnormal gait and Denies lack of coordination Physical exam (Primary Care) Vital Signs: Last Vital Signs BP 130/80 09/21/22 14:13 BMI result Body Mass Index 40.2 Tobacco/Smoking Status: Tobacco use Status Tobacco use date assessed 08/08/22 09/21/22 14:15 Patient Tobacco Use Status Never used Tobacco 09/21/22 14:15 e-Cigarette/Vaping Use Never Used 09/21/22 14:15 Thrive Assessment: Date of Thrive Assessment Date Thrive assessed 04/13/21 09/21/22 14:15 Eyes General: appearance normal, both eyes and all related structures Eyelids: Yes eyelids normal Conjunctivae: conjunctivae normal Neck Neck: Yes normal visual inspection and Yes supple Resp Effort & Inspection: normal respiratory effort Auscultation: clear to auscultation bilaterally Cardio Jugular venous distension: no JVD Rate: regular rate Rhythm: regular rhythm Heart sounds: S1 normal heart sound present and S2 normal heart sound present Extrem General: Yes full ROM Assessment and Plan Assessment & Plan (1) Morbid obesity due to excess calories: Code(s): E66.01 - Morbid (severe) obesity due to excess calories Plan: Follow-up with weight management. Start diet and exercise. BMI goal is less than 30. (2) Diabetes mellitus: Code(s): E11.9 - Type 2 diabetes mellitus without complications Plan: Continue diet. A1c within goal. (3) Mild asthma: Code(s): J45.909 - Unspecified asthma, uncomplicated Qualifiers: Asthma persistence: persistent Asthma complication type: uncomplicated Qualified Code(s): J45.30 - Mild persistent asthma, uncomplicated Plan: Use rescue inhaler as needed. (4) GERD (gastroesophageal reflux disease): Code(s): K21.9 - Gastro-esophageal reflux disease without esophagitis Plan: Continue PPIs as needed Orders: Orders Comprehensive [place]. Panel Fast Today E11.9 - Type 2 diabetes mellitus without complications IRON PROFILE Today D64.9 - Anemia, unspecified Lipid Panel Today E11.9 - Type 2 diabetes mellitus without complications, E78.5 - Hyperlipidemia, unspecified Free T4 (Free Thyroxine) Today E66.01 - Morbid (severe) obesity due to excess calories Thyroid Stimulating Hormone Today E66.01 - Morbid (severe) obesity due to excess calories Vitamin D 25-OH Total Today E55.9 - Vitamin D deficiency, unspecified Microalbumin, Random (w Creat) Today E11.9 - Type 2 diabetes mellitus without complications Complete Blood Count Auto Diff Today D64.9 - Anemia, unspecified Coding Level of Care Code Est Pt Level 4 (78313) Diagnoses Morbid obesity due to excess calories E66.01 Diabetes mellitus E11.9 Mild asthma J45.30 Asthma persistence: persistent Asthma complication type: uncomplicated GERD (gastroesophageal reflux disease) K21.9 Time Spent (min) 23
== END 2022-09-21 14:40 | disposition home or self-care (01) ==
LOC: HO.HMGH 14:07
PROVIDERS: PCP Internal Medicine; Visit Provider Internal Medicine
DX: E11.9 Type 2 diabetes mellitus without complications (principal); J45.30 Mild persistent asthma, uncomplicated; E66.01 Morbid (severe) obesity due to excess calories; Z68.41 Body mass index [BMI] 40.0-44.9, adult; K21.9 Gastro-esophageal reflux disease without esophagitis
CPT/HCPCS: 99214

== ENCOUNTER 2023-04-27 07:08 | Outpatient (REF) | payer OTHER, SELFPAY ==
[2023-04-27 07:28] LABS: MANUAL DIFF FLAG NO
[2023-04-27 07:41] LABS: Basophils Absolute Auto 0.1 X10*3/uL (0.0-0.2); Basophils Percent Auto 0.9 % (0-2); Eosinophils Absolute Auto 0.3 X10*3/uL (0.0-0.4); Eosinophils Percent Auto 2.8 % (0-4); Hematocrit 32.2 % (37.0-47.0); Hemoglobin 9.4 g/dl (12.0-16.0); Imm Gran Abs Auto 0.03 X10*3/uL (0.00-0.03); Imm Gran Pct Auto 0.3 % (0.0-0.4); Lymphocytes Absolute Auto 1.8 X10*3/uL (1.2-4.9); Lymphocytes Percent Auto 18.1 % (20-40); Mean Corpuscular HGB Conc 29.2 g/dl (31.0-35.0); Mean Corpuscular Hemoglobin 20.5 pg (27.0-33.0); Mean Corpuscular Volume 70.2 fL (80.0-98.0); Monocytes Absolute Auto 0.7 X10*3/uL (0.1-1.2); Monocytes Percent Auto 6.9 % (2-11); Platelet Count 456 X10*3/uL (160-400); Red Blood Count 4.59 X10*6/uL (4.20-5.50); Red Cell Distribution Width 17.1 % (11.0-16.0); White Blood Count 9.8 X10*3/uL (4.8-10.8)
[2023-04-27 08:09] LABS: Alanine Aminotransferase 13 U/L (0-31); Alkaline Phosphatase 71 U/L (39-117); Anion Gap 12 (12-20); Aspartate Amino Transferase 16 U/L (5-31); Bilirubin Total 0.4 mg/dL (0.0-1.0); Blood Urea Nitrogen 12 mg/dL (9-16); Calcium 9.4 mg/dL (8.4-10.2); Carbon Dioxide 25 mmol/L (22-29); Chloride 106 mmol/L (96-108); Cholesterol 140 mg/dL (<200); Estimated Glomerular Filt Rate > 60; Glucose Fasting 115 mg/dL (60-99); HDL Cholesterol 33 mg/dL (>40); Iron 19 mcg/dL (30-160); LDL Cholesterol Calculated 93 mg/dL (<100); Percent Iron Saturation 5 % (15-50); Potassium 3.5 mmol/L (3.3-5.1); Sodium 139 mmol/L (135-145); Total Iron Binding Capacity 387 mcg/dL (228-428); Total Protein 7.8 g/dL (6.5-8.0); Triglycerides 71 mg/dL (<150); Unsaturated Iron Binding 368 ug/dL
[2023-04-27 08:17] LABS: Free T4 (Free Thyroxine) 1.16 ng/dL (0.71-1.85); Vitamin D 25-OH Total 30.9 ng/mL (>30)
[2023-04-27 08:25] LABS: Microalbum/Creatinine Ratio Ur 117.6 ug/mg cr (<30)
[2023-04-27 08:30] LABS: Folate 13.9 ng/mL (> or = 4.0); Vitamin B12 569 pg/mL (200-900)
== END 2023-04-27 07:09 | disposition home or self-care (01) ==
LOC: HO.LAB 07:08
PROVIDERS: PCP Internal Medicine; Visit Provider Internal Medicine
DX: D64.9 Anemia, unspecified (principal); E11.9 Type 2 diabetes mellitus without complications; E78.5 Hyperlipidemia, unspecified; E66.01 Morbid (severe) obesity due to excess calories; E55.9 Vitamin D deficiency, unspecified; E53.8 Deficiency of other specified B group vitamins; Z68.38 Body mass index [BMI] 38.0-38.9, adult
CPT/HCPCS: 36415; 80053; 80061; 82043; 82306; 82570; 82607; 82746; 83540; 84439; 84443; 85025

== ENCOUNTER 2023-07-31 08:05 | Outpatient (REF) | payer OTHER, SELFPAY ==
[2023-07-31 08:29] LABS: MANUAL DIFF FLAG NO
[2023-07-31 08:40] LABS: Basophils Absolute Auto 0.1 X10*3/uL (0.0-0.2); Basophils Percent Auto 0.7 % (0-2); Eosinophils Absolute Auto 0.2 X10*3/uL (0.0-0.4); Eosinophils Percent Auto 2.6 % (0-4); Hemoglobin 13.3 g/dl (12.0-16.0); Imm Gran Abs Auto 0.02 X10*3/uL (0.00-0.03); Imm Gran Pct Auto 0.2 % (0.0-0.4); Lymphocytes Absolute Auto 1.9 X10*3/uL (1.2-4.9); Lymphocytes Percent Auto 23.2 % (20-40); Mean Corpuscular HGB Conc 31.7 g/dl (31.0-35.0); Mean Corpuscular Hemoglobin 26.3 pg (27.0-33.0); Mean Corpuscular Volume 83.2 fL (80.0-98.0); Mean Platelet Volume 9.5 fL (9.4-12.3); Monocytes Absolute Auto 0.5 X10*3/uL (0.1-1.2); Monocytes Percent Auto 6.5 % (2-11); Neutrophils Absolute Auto 5.5 x10*3/uL (2.0-8.3); Neutrophils Percent Auto 66.8 % (45-73); Platelet Count 404 X10*3/uL (160-400); Red Blood Count 5.05 X10*6/uL (4.20-5.50); Red Cell Distribution Width 17.9 % (11.0-16.0); White Blood Count 8.2 X10*3/uL (4.8-10.8)
[2023-07-31 09:37] LABS: Cholesterol 149 mg/dL (<200); HDL Cholesterol 35 mg/dL (>40); Iron 67 mcg/dL (30-160); LDL Cholesterol Calculated 99 mg/dL (<100); Percent Iron Saturation 21 % (15-50); Total Iron Binding Capacity 321 mcg/dL (228-428); Triglycerides 75 mg/dL (<150); Unsaturated Iron Binding 254 ug/dL
[2023-08-03 15:19] LABS: Hematocrit 41.6 % (35.0-45.0); Hemoglobin 13.2 g/dL (11.7-15.5); MCH 26.6 pg (27.0-33.0); MCV 83.7 fL (80.0-100.0); RBC 4.97 Million/uL (3.80-5.10); RDW 17.6 % (11.0-15.0)
== END 2023-07-31 08:06 | disposition home or self-care (01) ==
LOC: HO.LAB 08:05
PROVIDERS: PCP Internal Medicine; Visit Provider Internal Medicine
DX: D50.9 Iron deficiency anemia, unspecified (principal); E78.5 Hyperlipidemia, unspecified; E11.9 Type 2 diabetes mellitus without complications; E66.01 Morbid (severe) obesity due to excess calories
CPT/HCPCS: 36415; 80061; 83020; 83540; 84443; 85014; 85018; 85025; 85041

== ENCOUNTER → 2023-08-07 08:45 | Outpatient (BNV) | payer OTHER, SELFPAY | PROVIDERS: PCP Internal Medicine; Visit Provider Radiology Diagnostic Radiology | DX: Z12.31 Encounter for screening mammogram for malignant neoplasm of breast (principal) | CPT/HCPCS: 77063; 77067 ==

== ENCOUNTER 2023-08-07 08:46 | Outpatient (REF) | payer OTHER, SELFPAY | END 2023-08-07 08:47 | disposition home or self-care (01) | LOC: HO.MAMMO 08:46 | PROVIDERS: PCP Internal Medicine; Visit Provider Internal Medicine | DX: Z12.31 Encounter for screening mammogram for malignant neoplasm of breast (principal) | CPT/HCPCS: 77063; 77067 ==

== ENCOUNTER 2023-08-14 07:21 | Outpatient (AMB) | payer OTHER, SELFPAY ==
--- NOTE | 2023-08-14 07:40 | MHC.PC.OV ---
Vital Signs 08/14/23 07:41 Height 5 ft 2 in Weight 226 lb BMI 41.3 BP 112/80 Blood Pressure Location Lt brachial Position Sitting Intake Visit Reasons: PE- NEEDS A1C Intake Note: Patient here for a physical exam Application Development Consultant Required: No Accompanied by: Self / Same As Patient Allergies nickel [NICKEL] Allergy (Mild, Verified 08/14/23 07:44) RASH pioglitazone Allergy (Unknown, Verified 08/14/23 07:44) headache, vomiting, stomach upset metformin Adverse Reaction (Intermediate, Verified 08/14/23 07:44) headache, dizziness Medication List - Last Reconciled 08/14/23 by Jess Messina MD albuterol sulfate 2.5 mg (3 mL) inhalation Q4-6H PRN 30 days albuterol sulfate 90 mcg/actuation (Ventolin HFA) 2 puffs PO QID PRN blood sugar diagnostic As directed dulaglutide (Trulicity) 0.75 mg (0.5 mL) subcut QWEEK 30 days ferrous sulfate 325 mg PO DAILY 90 days levonorgestrel (Mirena) intrauterine omeprazole 20 mg PO DAILY Tobacco use date assessed: 08/14/23 Dental Screening Dental Screen Date: 08/14/23 Did you have a dental visit in the last 12 months?: Yes Did you have a dental problem in the last 6 months where you did not have access to dental care?: No Was dental information given to patient?: Patient has dentist HPI HPI Comments History of Present Illness Details This is a 48-year-old female with diabetes mellitus type 2 and morbid obesity that comes for her physical exam. A1c within goal. She tried metformin with headache and abdominal discomfort as side effects. On Trulicity and has completed 90 days. I will change her to Ozempic. She is morbidly obese with a BMI of 41.3 and was advised to do diet and exercise to reach BMI goal less than 30. Last mammogram was this month and results are still pending. Had Cologuard negative 2022 and next Cologuard should be 2025. Pap smear was negative in 2021. No chest pain or shortness on breath. [facility] Medical History Hirsutism GERD (gastroesophageal reflux disease) Hyperplasia of cervix Abnormal uterine bleeding (AUB) Morbid obesity due to excess calories Diabetes mellitus SAPPHIRE (obstructive sleep apnea) Mild asthma Obesity Hypothyroidism Hyperlipemia Sleep apnea Hx of thyroid disease Surgical History Hx laparoscopic cholecystectomy (05/26/22) History of esophagogastroduodenoscopy (EGD) Status post sleeve gastrectomy History of lithotripsy H/O ventral hernia repair History of appendectomy Hx of ovarian cystectomy Family History Father Diabetes mellitus Stroke Mother Diabetes mellitus CVD (cardiovascular disease) Paternal Grandmother History of breast cancer Maternal Grandmother No problems noted. Maternal Aunt Stroke Diabetes mellitus Sister In good health Maternal Grandfather Skin cancer Social History Housing: Apartment Alcohol intake: never Patient Tobacco Use Status: Never used Tobacco e-Cigarette/Vaping Use: Never Used Second Hand Smoke Exposure: No service: No Current occupational status: unemployed Sexual orientation: Straight/Heterosexual Cognitive needs: No Hearing needs: No Vision needs: Yes Female Reproductive History Menstrual Age of Menarche: 10 Questionnaire PHQ-9 Over the last 2 weeks, how often have you been bothered by any of the following problems? 1. Little interest or pleasure in doing things: not at all 2. Feeling down, depressed, or hopeless: not at all 3. Trouble falling or staying asleep, or sleeping too much: not at all 4. Feeling tired or having little energy: not at all 5. Poor appetite or overeating: not at all 6. Feeling bad about yourself - or that you are a failure or have let yourself or your family down: not at all 7. Trouble concentrating on things, such as reading the newspaper or watching television: not at all 8. Moving or speaking so slowly that other people could have noticed. Or the opposite - being so fidgety or restless that you have been moving around a lot more than usual: not at all 9. Thoughts that you would be better off or of hurting yourself in some way: not at all Total score: 0 Depression Screening Interpretation: Negative Depression Screening Done: Yes 31951 - PHQ-9 Billing: Yes Source: Developed by Drs. Epifanio Montiel, Liza Oglesby, Jack Gonzáles and colleagues, with an educational almita from [employer]. Thrive Questionnaire Date Thrive assessed: 08/14/23 I am a: Patient What is your living situation today?: I have a steady place to live Within the past 12 months, did the food you bought not last and you didn't have the money to get more?: Never true Within the past 12 months, did you worry whether your food would run out before you got money to buy more?: Never true Do you have trouble paying for medicines?: No Do you have trouble getting transportation to medical appointments?: No Do you have trouble paying your heating and electricity bill?: No Do you have trouble taking care of your child, family member or friend?: No Do you have trouble with day-to-day activities such as bathing, preparing meals, shopping, managing finances, etc.?: No Are you currently unemployed and looking for a job?: No Are you interested in more education?: No Please select the resources that you would like help with: None Currently or been in a relationship where the following occur: no concerns reported THRIVE Score: 0 AUDIT C Alcohol Use Questionnaire (AUDIT-C) 1. How often do you have a drink containing alcohol?: Never Total Score: 0 SAVANNAH-7 AMB Questionnaire SAVANNAH-7 Date SAVANNAH - 7 assessed: 08/14/23 Feeling nervous, anxious, or on edge: 1 = Several days Not being able to stop or control worryin = Not at all Worrying too much about different things: 0 = Not at all Trouble relaxin = Not at all Being so restless that it is hard to sit still: 0 = Not at all Becoming easily annoyed or irritable: 0 = Not at all Feeling afraid as if something awful might happen: 0 = Not at all Total SAVANNAH-7 score (0-4 normal; 5-9 mild; 10-14 moderate; 15-21 severe): 1 Source: Developed by Drs. Epifanio Montiel, Jack Roberts and colleagues, with an educational almita from [employer]. SAVANNAH-7 Assessment Billing SAVANNAH-7 Assessment Tool: SAVANNAH-7 Assessment 66328 Review of Systems Const All systems reviewed & are unremarkable except as noted in HPI and below Card Denies chest pain at rest, Denies chest pain with activity, Denies edema, Denies irregular heart rhythm, Denies claudication, Denies dyspnea, Denies dyspnea on exertion, Denies orthopnea, Denies paroxysmal nocturnal dyspnea and Denies slow heart rate Resp Denies cough, Denies dyspnea and Denies dyspnea on exertion GI Denies abdominal pain, Denies change in bowel habits, Denies excessive flatus, Denies nausea and Denies vomiting Denies urinary incontinence, Denies urinary hesitancy and Denies urinary urgency Musc Denies abnormal gait, Denies atrophy, Denies deformity and Denies limited range of motion Skin/Breast Denies bleeding lesions, Denies changing lesions and Denies rash Neuro Denies abnormal gait, Denies behavioral changes, Denies confusion and Denies lack of coordination Psych Denies behavioral changes and Denies confusion Physical exam (Primary Care) Vital Signs: Last Vital Signs BP 112/80 08/14/23 07:41 BMI result Body Mass Index 41.3 BMI Assessment/Plan discussion: High BMI High, discussed plan: lifestyle, weight reduction, dietary and physical activity Tobacco/Smoking Status: Tobacco use Status Tobacco use date assessed 08/14/23 08/14/23 07:46 Patient Tobacco Use Status Never used Tobacco 08/14/23 07:43 e-Cigarette/Vaping Use Never Used 08/14/23 07:43 PHQ-9: PHQ-9 Score PHQ-9: Total score 0 08/14/23 08:46 Depression Screening Interpretation: Negative Thrive Assessment: Date of Thrive Assessment Date Thrive assessed 08/14/23 08/14/23 07:46 Currently or been in a relationship where the following occur: no concerns reported Const General: No confusion Orientation/consciousness: patient oriented x3 and No confusion HENMT Head: Yes normal to inspection, Yes normocephalic and Yes atraumatic Ears: external ears normal Eyes General: appearance normal, both eyes and all related structures Eyelids: Yes eyelids normal Conjunctivae: conjunctivae normal Neck Neck: Yes normal visual inspection and Yes supple Resp Effort & Inspection: normal respiratory effort Auscultation: clear to auscultation bilaterally Cardio Jugular venous distension: no JVD Rate: regular rate Rhythm: regular rhythm Heart sounds: S1 normal heart sound present and S2 normal heart sound present GI Inspection: Yes normal to inspection Palpation (GI): Soft to palpation and nontender Auscultation: normal bowel sounds Skin General skin exam: no rashes or lesions noted Neuro General: patient oriented x3, no focal motor deficits and No confusion Extrem General: Yes full ROM Psych Appearance: grossly normal Results AMB Hemoglobin A1c AMB Hemoglobin A1c 6.6 % Last Edit by BALDOMERO Li on 08/14/23 07:49 Immunizations Boostrix Tdap 2.5 Lf unit-8 mcg-5 Lf/0.5 mL intramuscular syringe Performing Provider: Jess Messina MD [facility] Administered by: BALDOMERO Li on 08/14/23 08:13 Dose Route Admin Location Dispensed Lot Number Expiration Date NDC Early Childhood Education Coordinator 0.5 mL IM Left Deltoid 0.5 mL [id number] 10/04/25 [id number] [employer] VIS Given Date VIS Provided VIS Publication Date 08/14/23 Single Vaccine 20 Eligibility Eligibility Date Funding Source Not [facility] Eligible 08/14/23 Private Results Reviewed Results Reviewed: Laboratory Last Values Hgb A1c (Clinic) 6.6 % (4.0-6.0) H 08/14/23 07:48 Assessment and Plan Assessment & Plan (1) Physical exam: Code(s): Z00.00 - Encounter for general adult medical examination without abnormal findings Plan: Repeat in a year. (2) Diabetes mellitus: Code(s): E11.9 - Type 2 diabetes mellitus without complications Qualifiers: Diabetes mellitus complication status: without complication Diabetes mellitus terminal clerk insulin use: without terminal clerk use Diabetes mellitus type: type 2 Qualified Code(s): E11.9 - Type 2 diabetes mellitus without complications Plan: Discontinue Trulicity. Start Ozempic. A1c goal is equal or less than 7%. Do yearly diabetic eye exam. (3) Morbid obesity due to excess calories: Code(s): E66.01 - Morbid (severe) obesity due to excess calories Plan: Start diet and exercise. BMI goal is less than 30. Orders: Orders Complete Blood Count Auto Diff 4 Months D64.9 - Anemia, unspecified Microalbumin, Random (w Creat) 4 Months E11.9 - Type 2 diabetes mellitus without complications Vitamin D 25-OH Total 4 Months E55.9 - Vitamin D deficiency, unspecified Comprehensive [place]. Panel Fast 4 Months E11.9 - Type 2 diabetes mellitus without complications AMB Hemoglobin A1c Today E11.9 - Type 2 diabetes mellitus without complications TDaP Immunization Today Z23 - Encounter for immunization IRON PROFILE 4 Months D64.9 - Anemia, unspecified Lipid Panel 4 Months E78.5 - Hyperlipidemia, unspecified Thyroid Stimulating Hormone 4 Months E03.9 - Hypothyroidism, unspecified Referrals Nephrology Referral R80.9 - Proteinuria, unspecified Medications: New rosuvastatin 10 mg PO DAILY 90 tabs 1RF 90 days E78.5 - Hyperlipidemia, unspecified semaglutide (Ozempic) for 4 weeks 0.25 mg (0.368 mL) subcut QWEEK 1.472 mL 0RF 4 weeks E11.9 - Type 2 diabetes mellitus without complications hydrocortisone 1% (Anti-Itch (hydrocortisone)) 1 appl topical TID PRN 28.4 grams 0RF skin irritation 2 weeks Discontinued dulaglutide (Trulicity) Discontinued Reason: Patient Completed Course 0.75 mg (0.5 mL) subcut QWEEK 30 days 2.5 mL 3RF E11.9 - Type 2 diabetes mellitus without complications ferrous sulfate Discontinued Reason: Patient Completed Course 325 mg PO DAILY 90 days 90 tabs 1RF D50.9 - Iron deficiency anemia, unspecified Coding Level of Care Code Est Pt Prev Care 40-64y(36695) Diagnoses Physical exam Z00.00 Type 2 diabetes mellitus without complication, without long-term current use of insulin E11.9 Diabetes mellitus complication status: without complication Diabetes mellitus terminal clerk insulin use: without terminal clerk use Diabetes mellitus type: type 2 Morbid obesity due to excess calories E66.01 Additional Codes SAVANNAH-7 Assessment Billing - SAVANNAH-7 Assessment Tool: SAVANNAH-7 Assessment [id number] ([id number]) Time Spent (min) 32
[2023-08-14 07:41] VITALS: BP 112/80; BMI 41.3
== END 2023-08-14 08:01 | disposition home or self-care (01) ==
PROVIDERS: PCP Internal Medicine; Visit Provider Internal Medicine
DX: Z23 Encounter for immunization (principal); Z00.00 Encounter for general adult medical examination without abnormal findings; E11.9 Type 2 diabetes mellitus without complications; E66.01 Morbid (severe) obesity due to excess calories; Z68.41 Body mass index [BMI] 40.0-44.9, adult
CPT/HCPCS: 83036; 90471; 90715; 99396

== ENCOUNTER 2023-08-18 09:56 | Outpatient (AMB) | payer OTHER, SELFPAY ==
[2023-08-18 09:58] VITALS: BP 94/78; PULSE 83; O2SAT 98; BMI 41.1
--- NOTE | 2023-08-18 09:58 | HO.NEPHOV_ITS ---
Vital Signs 08/18/23 09:58 Height 5 ft 2 in Weight 225 lb BMI 41.1 BP 94/78 Blood Pressure Location Lt brachial Position Sitting Pulse 83 Pulse Source Pulse Oximeter Pulse Oximetry (%) 98 Oxygen Delivery Method Room Air Intake Visit Reasons: Proteinuria/ Conf Accompanied by: Self / Same As Patient Allergies nickel [NICKEL] Allergy (Mild, Verified 08/18/23 10:00) RASH pioglitazone Allergy (Unknown, Verified 08/18/23 10:00) headache, vomiting, stomach upset metformin Adverse Reaction (Intermediate, Verified 08/18/23 10:00) headache, dizziness HPI Comments Details: . Nona is a pleasant 48-year-old woman with a history of diabetes mellitus which was diagnosed about 5 years ago. She has a BMI of 41. She has a hemoglobin A1c of 6.6%. Last year it was 6.1%. She was on Trulicity up until this week. It has been switched to Ozempic. She is here to start this. The urine microalbumin creatinine ratio was 117. She has no history of hypertension. She had no specific complaints today. No headache nausea vomiting. No abdominal pain constipation. No edema. No urinary symptoms like polyuria polydipsia. [facility] Medical History Hirsutism GERD (gastroesophageal reflux disease) Hyperplasia of cervix Abnormal uterine bleeding (AUB) Morbid obesity due to excess calories Diabetes mellitus SAPPHIRE (obstructive sleep apnea) Mild asthma Obesity Hypothyroidism Hyperlipemia Sleep apnea Hx of thyroid disease Surgical History Hx laparoscopic cholecystectomy (05/26/22) History of esophagogastroduodenoscopy (EGD) Status post sleeve gastrectomy History of lithotripsy H/O ventral hernia repair History of appendectomy Hx of ovarian cystectomy Family History Father Diabetes mellitus Stroke Mother Diabetes mellitus CVD (cardiovascular disease) Paternal Grandmother History of breast cancer Maternal Grandmother No problems noted. Maternal Aunt Stroke Diabetes mellitus Sister In good health Maternal Grandfather Skin cancer Social History Housing: Apartment Alcohol intake: never Patient Tobacco Use Status: Never used Tobacco e-Cigarette/Vaping Use: Never Used Second Hand Smoke Exposure: No service: No Current occupational status: unemployed Sexual orientation: Straight/Heterosexual Cognitive needs: No Hearing needs: No Vision needs: Yes Female Reproductive History Menstrual Age of Menarche: 10 Physical Exam Vital Signs: Last Vital Signs Pulse 83 08/18/23 09:58 BP 94/78 08/18/23 09:58 Pulse Ox 98 08/18/23 09:58 Oxygen Delivery Method Room Air 08/18/23 09:58 BMI result Body Mass Index 41.1 Const General: comfortable; No acute distress Orientation/consciousness: patient oriented x3 Eyes General: appearance normal, both eyes and all related structures Visual Kaufman: normal visual kaufman by confrontation Neck Neck: Yes supple and Yes no JVD Resp Effort & Inspection: normal respiratory effort and respiratory effort not decreased Auscultation: rhonchi Cardio Palpation: no palpable S3 and no palpable S4 Heart sounds: no rubs GI Inspection: Yes normal to inspection Palpation (GI): Soft to palpation Percussion: Yes normal to percussion Auscultation: normal bowel sounds General: Yes no CVA tenderness Back/Spine/Pelvis Back: no CVA tenderness Skin General skin exam: no petechiae and no purpura Neuro General: patient oriented x3 and no focal motor deficits Extrem General: No clubbing and No edema Results Reviewed Nephrology Results: Hgb 13.3 g/dl (12.0-16.0) 07/31/23 WBC 8.2 X10*3/uL (4.8-10.8) 07/31/23 Plt Count 404 X10*3/uL (160-400) H 07/31/23 Sodium 139 mmol/L (135-145) 04/27/23 Potassium 3.5 mmol/L (3.3-5.1) 04/27/23 Chloride 106 mmol/L (96-108) 04/27/23 Carbon Dioxide 25 mmol/L (22-29) 04/27/23 BUN 12 mg/dL (9-16) 04/27/23 Creatinine 0.79 mg/dL (0.5-1.4) 04/27/23 Calcium 9.4 mg/dL (8.4-10.2) 04/27/23 Urine Creatinine 319.52 mg/dL 04/27/23 Assessment & Plan Assessment & Plan (1) Microalbuminuria: Code(s): R80.9 - Proteinuria, unspecified Category: Medical Plan . 48-year-old woman with a history of diabetes mellitus and increased BMI has microalbuminuria. Microalbuminuria is most likely due to underlying diabetic kidney disease. Obesity might be a contributing factor as well. At present renal function is stable at baseline with a creatinine of 0.7 mg/dL as of 2022. The goal is to slow the progression of the renal disease. Optimize blood sugar. Agree with SGLT2 inhibitors. I would like to add an MADDY inhibitor or an ARB however her blood pressure is rather low today. Therefore I will hold off on adding this agent for now. Baseline workup has been ordered. Encouraged her to stay on low-sodium diet She will benefit from weight loss Encouraged her to increase physical activities ; start with walking at least 20- 30 minutes a day. Orders: Orders UA and rflx microscopic Today R80.9 - Proteinuria, unspecified Creatinine Urine Today R80.9 - Proteinuria, unspecified Basic Metabolic Panel Today R80.9 - Proteinuria, unspecified Total Protein Urine Random Today R80.9 - Proteinuria, unspecified Coding Level of Care Code New Pt Level 4 (96831) Diagnoses Microalbuminuria R80.9
== END 2023-08-18 10:14 | disposition home or self-care (01) ==
PROVIDERS: PCP Internal Medicine; Referring Provider Internal Medicine; Visit Provider Internal Medicine Hypertension Specialist
DX: R80.9 Proteinuria, unspecified (principal)
CPT/HCPCS: 99204

== ENCOUNTER → 2023-08-18 09:56 | Outpatient (BNVA) | payer OTHER, SELFPAY | PROVIDERS: PCP Internal Medicine; Referring Provider Internal Medicine; Visit Provider Internal Medicine Hypertension Specialist | DX: R80.9 Proteinuria, unspecified (principal) | CPT/HCPCS: 99202 ==

== ENCOUNTER 2023-08-18 10:18 | Outpatient (REF) | payer OTHER, SELFPAY ==
[2023-08-18 11:43] LABS: Creatinine Urine 186.53 mg/dL; Total Protein Urine Random 37 mg/dL (<12)
[2023-08-18 11:43] LABS: Anion Gap 9 (12-20); Blood Urea Nitrogen 15 mg/dL (9-16); Calcium 9.7 mg/dL (8.4-10.2); Carbon Dioxide 29 mmol/L (22-29); Chloride 106 mmol/L (96-108); Estimated Glomerular Filt Rate > 60; Glucose Random 117 mg/dL (60-115); Potassium 3.8 mmol/L (3.3-5.1); Sodium 140 mmol/L (135-145)
[2023-08-18 12:01] LABS: Appearance Urine Cloudy; Color Urine Yellow; Glucose Urine UA Negative (Negative); Leukocyte Esterase Urine Moderate (2+) (Negative); Nitrite Urine Negative (Negative); PH 5.5 (5.0-9.0); Specific Gravity - Urine >= 1.030 (1.005-1.025); UMIC TRIGGER UA YES; Urine Blood Large (3+) (Negative); Urine Ketones Negative (Negative); Urine Protein 30 (1+) mg/dL (Neg-Trace)
[2023-08-18 12:07] LABS: Bacteria Urine 4+ (None Seen); Hyaline Casts Urine 0-2 /LPF (0-2); RBC Urine >20 /HPF (0-2); WBC Urine >50 /HPF (0-5)
== END 2023-08-18 10:19 | disposition home or self-care (01) ==
LOC: HO.10HDL 10:18
PROVIDERS: Visit Provider Internal Medicine Hypertension Specialist
DX: R80.9 Proteinuria, unspecified (principal)
CPT/HCPCS: 36415; 80048; 81001; 81003; 82570; 84156

== ENCOUNTER 2023-09-01 10:46 | Outpatient (AMB) | payer OTHER, SELFPAY ==
[2023-09-01 10:53] VITALS: BP 122/70; PULSE 83; O2SAT 97; BMI 41.9
--- NOTE | 2023-09-01 10:53 | HO.NEPHOV_ITS ---
Vital Signs 09/01/23 10:53 Height 5 ft 2 in Weight 229 lb 4 oz BMI 41.9 BP 122/70 Blood Pressure Location Rt brachial Position Sitting Pulse 83 Pulse Source Pulse Oximeter Pulse Oximetry (%) 97 Oxygen Delivery Method Room Air Intake Visit Reasons: Proteinuria/ Conf Growth Media Mixer Mushroom Required: No Accompanied by: Self / Same As Patient Allergies nickel [NICKEL] Allergy (Mild, Verified 09/01/23 10:56) RASH pioglitazone Allergy (Unknown, Verified 09/01/23 10:56) headache, vomiting, stomach upset metformin Adverse Reaction (Intermediate, Verified 09/01/23 10:56) headache, dizziness Medication List - Last Reconciled 09/01/23 by Rajesh Espinoza MD albuterol sulfate 2.5 mg (3 mL) inhalation Q4-6H PRN 30 days albuterol sulfate 90 mcg/actuation (Ventolin HFA) 2 puffs PO QID PRN blood sugar diagnostic As directed hydrocortisone 1% (Anti-Itch (hydrocortisone)) 1 appl topical TID PRN 2 weeks levonorgestrel (Mirena) intrauterine omeprazole 20 mg PO DAILY rosuvastatin 10 mg PO DAILY 90 days semaglutide (Ozempic) 0.5 mg (0.736 mL) subcut QWEEK 4 weeks HPI Comments Details: . Nona is a pleasant 48-year-old woman with a history of diabetes mellitus which was diagnosed about 5 years ago. She has a BMI of 41. She has a hemoglobin A1c of 6.6%. Last year it was 6.1%. She was on Trulicity up until this week. It has been switched to Ozempic. She is here to start this. The urine microalbumin creatinine ratio was 117. She has no history of hypertension. She had no specific complaints today. No headache nausea vomiting. No abdominal pain constipation. No edema. No urinary symptoms like polyuria polydipsia. 09/01/2023. Overall doing well no new issues. [facility] Medical History Hirsutism GERD (gastroesophageal reflux disease) Hyperplasia of cervix Abnormal uterine bleeding (AUB) Morbid obesity due to excess calories Diabetes mellitus SAPPHIRE (obstructive sleep apnea) Mild asthma Obesity Hypothyroidism Hyperlipemia Sleep apnea Hx of thyroid disease Surgical History Hx laparoscopic cholecystectomy (05/26/22) History of esophagogastroduodenoscopy (EGD) Status post sleeve gastrectomy History of lithotripsy H/O ventral hernia repair History of appendectomy Hx of ovarian cystectomy Family History Father Diabetes mellitus Stroke Mother Diabetes mellitus CVD (cardiovascular disease) Paternal Grandmother History of breast cancer Maternal Grandmother No problems noted. Maternal Aunt Stroke Diabetes mellitus Sister In good health Maternal Grandfather Skin cancer Social History Housing: Apartment Alcohol intake: never Patient Tobacco Use Status: Never used Tobacco e-Cigarette/Vaping Use: Never Used Second Hand Smoke Exposure: No service: No Current occupational status: unemployed Sexual orientation: Straight/Heterosexual Cognitive needs: No Hearing needs: No Vision needs: Yes Female Reproductive History Menstrual Age of Menarche: 10 Physical Exam Vital Signs: Last Vital Signs Pulse 83 09/01/23 10:53 BP 122/70 09/01/23 10:53 Pulse Ox 97 09/01/23 10:53 Oxygen Delivery Method Room Air 09/01/23 10:53 BMI result Body Mass Index 41.9 Const General: comfortable; No acute distress Orientation/consciousness: patient oriented x3 Eyes General: appearance normal, both eyes and all related structures Visual Arias: normal visual arias by confrontation Neck Neck: Yes supple and Yes no JVD Resp Effort & Inspection: normal respiratory effort and respiratory effort not decreased Auscultation: rhonchi Cardio Palpation: no palpable S3 and no palpable S4 Heart sounds: no rubs GI Inspection: Yes normal to inspection Palpation (GI): Soft to palpation Percussion: Yes normal to percussion Auscultation: normal bowel sounds General: Yes no CVA tenderness Back/Spine/Pelvis Back: no CVA tenderness Skin General skin exam: no petechiae and no purpura Neuro General: patient oriented x3 and no focal motor deficits Extrem General: No clubbing and No edema Results Reviewed Results Reviewed: Urine protein creatinine ratio of 0.19 Nephrology Results: Hgb 13.3 g/dl (12.0-16.0) 07/31/23 WBC 8.2 X10*3/uL (4.8-10.8) 07/31/23 Plt Count 404 X10*3/uL (160-400) H 07/31/23 Sodium 140 mmol/L (135-145) 08/18/23 Potassium 3.8 mmol/L (3.3-5.1) 08/18/23 Chloride 106 mmol/L (96-108) 08/18/23 Carbon Dioxide 29 mmol/L (22-29) 08/18/23 BUN 15 mg/dL (9-16) 08/18/23 Creatinine 0.71 mg/dL (0.5-1.4) 08/18/23 Calcium 9.7 mg/dL (8.4-10.2) 08/18/23 Urine Protein 30 (1+) mg/dL (Neg-Trace) H 08/18/23 Urine Creatinine 186.53 mg/dL 08/18/23 Assessment & Plan Assessment & Plan (1) Microalbuminuria: Code(s): R80.9 - Proteinuria, unspecified Category: Medical Plan . 48-year-old woman with a history of diabetes mellitus and increased BMI has microalbuminuria. Microalbuminuria is most likely due to underlying diabetic kidney disease. Obesity might be a contributing factor as well. At present renal function is stable at baseline with a creatinine of 0.7 mg/dL The goal is to slow the progression of the renal disease. Optimize blood sugar. Agree with SGLT2 inhibitors. Added lisinopril 2.5 mg q.h.s.. She will will monitor urine protein excretion and titrate dose as tolerated next Baseline workup has been ordered. Encouraged her to stay on low-sodium diet She will benefit from weight loss Encouraged her to increase physical activities ; start with walking at least 20-30 minutes a day. Orders: Orders Creatinine Urine 6 Months R80.9 - Proteinuria, unspecified Basic Metabolic Panel 6 Months R80.9 - Proteinuria, unspecified Total Protein Urine Random 6 Months R80.9 - Proteinuria, unspecified UA and rflx microscopic 6 Months R80.9 - Proteinuria, unspecified Medications: New lisinopril 2.5 mg PO BEDTIME 90 tabs 1RF Coding Level of Care Code Est Pt Level 4 (16209) Diagnoses Microalbuminuria R80.9
== END 2023-09-01 11:03 | disposition home or self-care (01) ==
PROVIDERS: PCP Internal Medicine; Visit Provider Internal Medicine Hypertension Specialist
DX: R80.9 Proteinuria, unspecified (principal)
CPT/HCPCS: 99214

== ENCOUNTER → 2023-09-01 10:46 | Outpatient (BNVA) | payer OTHER, SELFPAY | PROVIDERS: PCP Internal Medicine; Visit Provider Internal Medicine Hypertension Specialist | DX: R80.9 Proteinuria, unspecified (principal); E11.9 Type 2 diabetes mellitus without complications | CPT/HCPCS: 99212 ==

== ENCOUNTER 2023-11-22 07:57 | Outpatient (AMB) | payer OTHER, SELFPAY ==
--- NOTE | 2023-11-22 08:00 | A.OFFVIS_ITS ---
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 Doing well with no concerns. 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 Current Mirena user due to AUB inserted, 2021. Has an occasional episode of bleeding. Currently is not sexually active. She denies vaginal itching and irritation. STI screening offered; she declines. Denies family history of ovarian or colon cancer. breast cancer-PGM. Last pap smear 2021, negative. Mammogram: 2023. ColoGard completed. [facility] Medical History Hirsutism GERD (gastroesophageal reflux disease) Hyperplasia of cervix Abnormal uterine bleeding (AUB) Morbid obesity due to excess calories Diabetes mellitus SAPPHIRE (obstructive sleep apnea) Mild asthma Obesity Hypothyroidism Hyperlipemia Sleep apnea Hx of thyroid disease Surgical History Hx laparoscopic cholecystectomy (05/26/22) History of esophagogastroduodenoscopy (EGD) Status post sleeve gastrectomy History of lithotripsy H/O ventral hernia repair History of appendectomy Hx of ovarian cystectomy Family History Father Diabetes mellitus Stroke Mother Diabetes mellitus CVD (cardiovascular disease) Paternal Grandmother History of breast cancer Maternal Grandmother No problems noted. Maternal Aunt Stroke Diabetes mellitus Sister In good health Maternal Grandfather Skin cancer Social History Housing: Apartment Alcohol intake: never Patient Tobacco Use Status: Never used Tobacco e-Cigarette/Vaping Use: Never Used Second Hand Smoke Exposure: No service: No Current occupational status: unemployed Sexual orientation: Straight/Heterosexual Cognitive needs: No Hearing needs: No Vision needs: Yes Female Reproductive History Menstrual Age of Menarche: 10 control method: progestin IUCD (Mirena 01/2022) Total pregnancies: 0 Date of last pap smear: 12/13/21 (neg pap and hpv) Date of Mammogram: 08/07/23 (Birad 1) Review of Systems Const All systems reviewed & are unremarkable except as noted in HPI and below Reports as per HPI Eyes Reports no additional complaints ENT Reports no additional complaints Card Reports no additional complaints Resp Reports no additional complaints GI Reports as per HPI and Reports no additional complaints Reports as per HPI Musc Reports no additional complaints Skin/Breast Reports as per HPI Neuro Reports no additional complaints Psych Reports no additional complaints Endo Reports no additional complaints Mando/Lymph Reports no additional complaints Aller/Immun Reports no additional complaints Physical Exam Vital Signs: Last Vital Signs BP 106/70 11/22/23 08:01 BMI result Body Mass Index 42.4 Const General: cooperative, healthy appearing, no acute distress, well developed and alert Orientation/consciousness: patient oriented x3 HEENT Head: Yes normal to inspection Eyes General: appearance normal, both eyes and all related structures Neck Neck: Yes normal visual inspection Thyroid: Thyroid normal Chest Chest palpation & inspection: normal inspection of the chest and other (no puckering, dimpling, peau de orange, retraction, discharge, masses) Breast/axilla inspection: normal inspection of the breasts Breast/axilla palpation: normal palpation of the breasts Resp Effort & Inspection: normal respiratory effort GI Inspection: Yes normal to inspection and Yes obesity Palpation (GI): Soft to palpation Rectal Exam - Female: deferred General: Yes bladder normal to palpation External Female Exam: normal external appearance and normal appearance of the urethra Speculum Exam - Vagina: normal appearance of the vagina, normal palpation and normal vaginal discharge Speculum Exam - Cervix: normal appearance of the cervix, normal palpation and Other cervical findings present (IUD strings present) Bimanual exam- vagina & uterus: normal bimanual exam, normal palpation, uterine size normal, bladder normal to palpation, normal palpation and non-tender Bimanual Exam- Adnexa, other: no masses Skin General skin exam: no rashes or lesions noted Rashes: no rashes Neuro General: patient oriented x3 Cognition (Neuro): normal cognition Extrem General: Yes normal to inspection Psych Attitude: cooperative Thought process: Normal thought process present Assessment & Plan Assessment & Plan (1) Encounter for well woman exam with routine gynecological exam: Code(s): Z01.419 - Encounter for gynecological examination (general) (routine) without abnormal findings Category: Medical Plan Discussed: Current recommendations for pap smears per ASCCP guidelines. Breast awareness and periodic breast exams. Maintain a healthy lifestyle including a well balanced diet and routine exercise. Mammogram yearly. Call if any prolonged bleeding episodes or frequent bleeding less than 24 days apart. Colonoscopy >45, or at risk sooner. Patient verbalizes understanding and agrees to the plan of care. She was given opportunity to ask questions and all questions were answered to the best of my ability. RTO in one year for annual cultured marble products maker examination. This note is constructed using voice recognition software. While every effort has been made to ensure accuracy, farmworker dairy errors may have been included. Coding Level of Care Code Est Pt Prev Care 40-64y(93970) Diagnoses Encounter for well woman exam with routine gynecological exam Z01.419
[2023-11-22 08:01] VITALS: BP 106/70; BMI 42.4
== END 2023-11-22 09:05 | disposition home or self-care (01) ==
PROVIDERS: PCP Internal Medicine; Visit Provider Advanced Practice Midwife
DX: Z01.419 Encounter for gynecological examination (general) (routine) without abnormal findings (principal)
CPT/HCPCS: 99396

== ENCOUNTER → 2023-11-22 07:57 | Outpatient (BNVA) | payer OTHER, SELFPAY | PROVIDERS: PCP Internal Medicine; Visit Provider Advanced Practice Midwife | DX: Z01.419 Encounter for gynecological examination (general) (routine) without abnormal findings (principal); N93.9 Abnormal uterine and vaginal bleeding, unspecified; Z97.5 Presence of (intrauterine) contraceptive device | CPT/HCPCS: 99396 ==

== ENCOUNTER 2023-12-25 07:21 | Outpatient (REF) | payer OTHER, SELFPAY ==
[2023-12-25 07:50] LABS: MANUAL DIFF FLAG NO
[2023-12-25 08:38] LABS: Creatinine Urine 233.95 mg/dL; Microalbum/Creatinine Ratio Ur 22.2 ug/mg cr (<30)
[2023-12-25 08:43] LABS: Basophils Absolute Auto 0.1 X10*3/uL (0.0-0.2); Basophils Percent Auto 0.9 % (0-2); Eosinophils Absolute Auto 0.2 X10*3/uL (0.0-0.4); Eosinophils Percent Auto 2.6 % (0-4); Hematocrit 41.8 % (37.0-47.0); Hemoglobin 13.7 g/dl (12.0-16.0); Imm Gran Abs Auto 0.03 X10*3/uL (0.00-0.03); Imm Gran Pct Auto 0.3 % (0.0-0.4); Lymphocytes Absolute Auto 1.9 X10*3/uL (1.2-4.9); Lymphocytes Percent Auto 21.6 % (20-40); Mean Corpuscular HGB Conc 32.8 g/dl (31.0-35.0); Mean Corpuscular Hemoglobin 28.8 pg (27.0-33.0); Mean Platelet Volume 9.8 fL (9.4-12.3); Monocytes Absolute Auto 0.6 X10*3/uL (0.1-1.2); Monocytes Percent Auto 6.5 % (2-11); Neutrophils Percent Auto 68.1 % (45-73); Platelet Count 335 X10*3/uL (160-400); Red Blood Count 4.75 X10*6/uL (4.20-5.50); White Blood Count 8.9 X10*3/uL (4.8-10.8)
[2023-12-25 08:44] LABS: Alanine Aminotransferase 23 U/L (0-31); Albumin Level 3.9 g/dL (3.5-5.0); Alkaline Phosphatase 69 U/L (39-117); Anion Gap 9 (12-20); Aspartate Amino Transferase 24 U/L (5-31); Bilirubin Total 0.5 mg/dL (0.0-1.0); Blood Urea Nitrogen 12 mg/dL (9-16); Calcium 9.4 mg/dL (8.4-10.2); Carbon Dioxide 28 mmol/L (22-29); Chloride 104 mmol/L (96-108); Cholesterol 111 mg/dL (<200); Estimated Glomerular Filt Rate > 60; Glucose Fasting 151 mg/dL (60-99); HDL Cholesterol 35 mg/dL (>40); Iron 85 mcg/dL (30-160); LDL Cholesterol Calculated 60 mg/dL (<100); Percent Iron Saturation 26 % (15-50); Potassium 3.7 mmol/L (3.3-5.1); Sodium 137 mmol/L (135-145); Total Iron Binding Capacity 333 mcg/dL (228-428); Total Protein 7.3 g/dL (6.5-8.0); Triglycerides 84 mg/dL (<150); Unsaturated Iron Binding 248 ug/dL
[2023-12-25 09:00] LABS: Vitamin D 25-OH Total 28.8 ng/mL (>30)
== END 2023-12-25 07:22 | disposition home or self-care (01) ==
LOC: HO.LAB 07:21
PROVIDERS: PCP Internal Medicine; Visit Provider Internal Medicine
DX: E11.9 Type 2 diabetes mellitus without complications (principal); D64.9 Anemia, unspecified; E78.5 Hyperlipidemia, unspecified; E55.9 Vitamin D deficiency, unspecified; E03.9 Hypothyroidism, unspecified
CPT/HCPCS: 36415; 80053; 80061; 82043; 82306; 82570; 83540; 84443; 85025

== ENCOUNTER 2023-12-26 08:53 | Outpatient (AMB) | payer OTHER, SELFPAY ==
--- NOTE | 2023-12-26 08:59 | MHC.PC.OV ---
Vital Signs 12/26/23 09:02 Height 5 ft 2 in Weight 230 lb BMI 42.1 BP 110/80 Blood Pressure Location Lt brachial Position Sitting Intake Visit Reasons: DM Follow Up Intake Note: Patient here for a follow up DM Cloth Bleaching Range Back Tender Required: No Accompanied by: Self / Same As Patient Allergies nickel [NICKEL] Allergy (Mild, Verified 12/26/23 09:14) RASH pioglitazone Allergy (Unknown, Verified 12/26/23 09:14) headache, vomiting, stomach upset metformin Adverse Reaction (Intermediate, Verified 12/26/23 09:14) headache, dizziness Medication List - Last Reconciled 12/26/23 by Jess Messina MD albuterol sulfate 2.5 mg (3 mL) inhalation Q4-6H PRN 30 days albuterol sulfate 90 mcg/actuation (Ventolin HFA) 2 puffs PO QID PRN 30 days blood sugar diagnostic As directed hydrocortisone 1% (Anti-Itch (hydrocortisone)) 1 appl topical TID PRN 2 weeks levonorgestrel (Mirena) intrauterine losartan 25 mg PO DAILY omeprazole 20 mg PO DAILY rosuvastatin 10 mg PO DAILY 90 days semaglutide (Ozempic) 0.5 mg (0.736 mL) subcut QWEEK 4 weeks Tobacco use date assessed: 08/14/23 Dental Screening Dental Screen Date: 08/14/23 HPI HPI Comments History of Present Illness Details This is a 48-year-old female with diabetes mellitus type 2, hypertension, hyperlipidemia, hypothyroidism and morbid obesity that comes today for follow-up on her conditions. A1c elevated and I will increase Ozempic. Blood pressure stable. LDL within goal. TSH is elevated and will be repeated in 6 weeks. She is morbidly obese with a BMI of 42.1 and was advised to do diet and exercise to reach BMI goal less than 30. Denies any chest pain or shortness on breath. [facility] Medical History (Updated 12/26/23 @ 09:26 by Jess Messina MD) Hirsutism GERD (gastroesophageal reflux disease) Hyperplasia of cervix Abnormal uterine bleeding (AUB) Morbid obesity due to excess calories Diabetes mellitus SAPPHIRE (obstructive sleep apnea) Mild asthma Obesity Hypothyroidism Hyperlipemia Sleep apnea Hx of thyroid disease Surgical History Hx laparoscopic cholecystectomy (05/26/22) History of esophagogastroduodenoscopy (EGD) Status post sleeve gastrectomy History of lithotripsy H/O ventral hernia repair History of appendectomy Hx of ovarian cystectomy Family History Father Diabetes mellitus Stroke Mother Diabetes mellitus CVD (cardiovascular disease) Paternal Grandmother History of breast cancer Maternal Grandmother No problems noted. Maternal Aunt Stroke Diabetes mellitus Sister In good health Maternal Grandfather Skin cancer Social History Housing: Apartment Alcohol intake: never Patient Tobacco Use Status: Never used Tobacco e-Cigarette/Vaping Use: Never Used Second Hand Smoke Exposure: No service: No Current occupational status: unemployed Sexual orientation: Straight/Heterosexual Cognitive needs: No Hearing needs: No Vision needs: Yes Female Reproductive History Menstrual Age of Menarche: 10 Questionnaire Thrive Questionnaire Date Thrive assessed: 08/14/23 AUDIT C Alcohol Use Questionnaire (AUDIT-C) 3. How often do you have six or more drinks on one occasion?: Never Total Score: 0 SAVANNAH-7 AMB Questionnaire SAVANNAH-7 Date SAVANNAH - 7 assessed: 08/14/23 Source: Developed by Drs. Epifanio Montiel, Liza Oglesby, Jack Gonzáles and colleagues, with an educational almita from [employer]. Review of Systems Const All systems reviewed & are unremarkable except as noted in HPI and below Card Denies chest pain at rest, Denies chest pain with activity, Denies edema, Denies irregular heart rhythm, Denies claudication, Denies dyspnea, Denies dyspnea on exertion, Denies orthopnea, Denies paroxysmal nocturnal dyspnea and Denies slow heart rate Resp Denies cough, Denies dyspnea and Denies dyspnea on exertion Neuro Denies lack of coordination Physical exam (Primary Care) Vital Signs: Last Vital Signs BP 110/80 12/26/23 09:02 BMI result Body Mass Index 42.1 BMI Assessment/Plan discussion: High BMI High, discussed plan: lifestyle, weight reduction, dietary and physical activity Tobacco/Smoking Status: Tobacco use Status Tobacco use date assessed 08/14/23 12/26/23 09:00 Patient Tobacco Use Status Never used Tobacco 12/26/23 09:00 e-Cigarette/Vaping Use Never Used 12/26/23 09:00 Thrive Assessment: Date of Thrive Assessment Date Thrive assessed 08/14/23 12/26/23 09:00 Resp Effort & Inspection: normal respiratory effort Auscultation: clear to auscultation bilaterally Cardio Jugular venous distension: no JVD Rate: regular rate Rhythm: regular rhythm Heart sounds: S1 normal heart sound present and S2 normal heart sound present Extrem General: Yes full ROM Office Procedures Flu Questionnaire Does the patient have a severe egg allergy?: No Results AMB Hemoglobin A1c AMB Hemoglobin A1c 7.5 % Last Edit by BALDOMERO Li on 12/26/23 09:08 Immunizations Fluarix Triv [id number] (PF) 45 mcg (15 mcg x 3)/0.5 mL IM syringe Performing Provider: Jess Messina MD [facility] Documented (not given) by: BALDOMERO Li on 12/26/23 09:06 Reason Not Given: Patient Refused Results Reviewed Results Reviewed: Laboratory Last Values Hgb A1c (Clinic) 7.5 % (4.0-6.0) H 12/26/23 08:58 Coding Level of Care Code Est Pt Level 4 (36934) Complex EM visit Add On G2211 Diagnoses Type 2 diabetes mellitus without complication, without long-term current use of insulin E11.9 Diabetes mellitus type: type 2 Diabetes mellitus fdc insulin use: without assistant terminal manager use Diabetes mellitus complication status: without complication Morbid obesity due to excess calories E66.01 Hyperlipidemia LDL goal <70 E78.5 Hypothyroidism, unspecified type E03.9 Hypothyroidism type: unspecified Essential hypertension I10 Time Spent (min) 22 Assessment & Plan Assessment & Plan (1) Diabetes mellitus: Code(s): E11.9 - Type 2 diabetes mellitus without complications Category: Medical Qualifiers: Diabetes mellitus type: type 2 Diabetes mellitus assistant terminal manager insulin use: without fdc use Diabetes mellitus complication status: without complication Qualified Code(s): E11.9 - Type 2 diabetes mellitus without complications Plan: Increase Ozempic. A1c goal is equal or less than 7%. (2) Morbid obesity due to excess calories: Code(s): E66.01 - Morbid (severe) obesity due to excess calories Category: Medical Plan: Start diet and exercise. BMI goal is less than 30. (3) Hyperlipidemia LDL goal <70: Code(s): E78.5 - Hyperlipidemia, unspecified Category: Medical Plan: Continue statins. LDL goal is less than 70. (4) Hypothyroidism: Code(s): E03.9 - Hypothyroidism, unspecified Category: Medical Qualifiers: Hypothyroidism type: unspecified Qualified Code(s): E03.9 - Hypothyroidism, unspecified Plan: Repeat thyroid function test in 6 weeks. (5) Essential hypertension: Code(s): I10 - Essential (primary) hypertension Category: Medical Plan: Continue losartan. Blood pressure goal is equal or less than 130/80. Orders: Orders AMB Hemoglobin A1c Today E11.9 - Type 2 diabetes mellitus without complications Influenza [id number] Immunization Today Z23 - Encounter for immunization Medications: New semaglutide (Ozempic) 1 mg (0.75 mL) subcut QWEEK 4 weeks 3 mL 0RF E11.9 - Type 2 diabetes mellitus without complications blood-glucose meter (FreeStyle Lite Meter kit) As directed 1 ea 0RF E11.9 - Type 2 diabetes mellitus without complications blood sugar diagnostic (FreeStyle Lite Strips) Use 1 test strip once a day 100 ea 2RF E11.9 - Type 2 diabetes mellitus without complications lancets (FreeStyle Lancets) Use 1 lancet once a day 100 ea 1RF E11.9 - Type 2 diabetes mellitus without complications Discontinued semaglutide (Ozempic) Discontinued Reason: Patient Completed Course 0.5 mg (0.736 mL) subcut QWEEK 4 weeks 2.944 mL 0RF
[2023-12-26 09:02] VITALS: BP 110/80; BMI 42.1
== END 2023-12-26 09:21 | disposition home or self-care (01) ==
LOC: HO.HMCH 08:54
PROVIDERS: PCP Internal Medicine; Visit Provider Internal Medicine
DX: E11.69 Type 2 diabetes mellitus with other specified complication (principal); E66.01 Morbid (severe) obesity due to excess calories; Z68.41 Body mass index [BMI] 40.0-44.9, adult; E78.5 Hyperlipidemia, unspecified; E03.9 Hypothyroidism, unspecified; I10 Essential (primary) hypertension

== ENCOUNTER → 2023-12-26 08:53 | Outpatient (BNVA) | payer OTHER, SELFPAY | PROVIDERS: PCP Internal Medicine; Visit Provider Internal Medicine | DX: E11.9 Type 2 diabetes mellitus without complications (principal); E66.01 Morbid (severe) obesity due to excess calories; E78.5 Hyperlipidemia, unspecified; E03.9 Hypothyroidism, unspecified; I10 Essential (primary) hypertension | CPT/HCPCS: 83036; 90471; 99212 ==

== ENCOUNTER 2024-02-29 07:49 | Outpatient (REF) | payer OTHER, SELFPAY ==
[2024-02-29 09:05] LABS: Anion Gap 14 (12-20); Blood Urea Nitrogen 12 mg/dL (9-16); Calcium 9.3 mg/dL (8.4-10.2); Carbon Dioxide 26 mmol/L (22-29); Chloride 105 mmol/L (96-108); Estimated Glomerular Filt Rate > 60; Glucose Random 197 mg/dL (60-115); Potassium 3.6 mmol/L (3.3-5.1); Sodium 141 mmol/L (135-145)
[2024-02-29 09:21] LABS: Thyroid Stimulating Hormone 3.75 uIU/mL (0.32-4.0)
[2024-02-29 09:23] LABS: Free T4 (Free Thyroxine) 1.24 ng/dL (0.71-1.85)
[2024-03-01 22:37] LABS: Thyroglobulin Antibodies <1 IU/mL (< or = 1); Thyroid Peroxidase Antibodies 313 IU/mL (<9)
== END 2024-02-29 07:50 | disposition home or self-care (01) ==
LOC: HO.LAB 07:49
PROVIDERS: PCP Internal Medicine; Visit Provider Internal Medicine Hypertension Specialist
DX: R79.89 Other specified abnormal findings of blood chemistry (principal); R80.9 Proteinuria, unspecified
CPT/HCPCS: 36415; 80048; 84439; 84443; 86376; 86800

== ENCOUNTER 2024-03-04 09:43 | Outpatient (AMB) | payer OTHER, SELFPAY ==
[2024-03-04 09:44] VITALS: BP 126/86; PULSE 89; O2SAT 97; BMI 42.6
--- NOTE | 2024-03-04 09:44 | HO.NEPHOV ---
Vital Signs 03/04/24 09:44 Height 5 ft 2 in Weight 233 lb BMI 42.6 BP 126/86 Blood Pressure Location Lt brachial Position Sitting Pulse 89 Pulse Source Pulse Oximeter Pulse Oximetry (%) 97 Oxygen Delivery Method Room Air Intake Visit Reasons: 6 mon follow up/ CONF Rigging Worker Required: Yes Rigging Worker Name: [id number] ivelisse Accompanied by: Self / Same As Patient Allergies nickel [NICKEL] Allergy (Mild, Verified 03/04/24 09:46) RASH pioglitazone Allergy (Unknown, Verified 03/04/24 09:46) headache, vomiting, stomach upset metformin Adverse Reaction (Intermediate, Verified 03/04/24 09:46) headache, dizziness Medication List - Last Reconciled 03/04/24 by Rajesh Espinoza MD albuterol sulfate 2.5 mg (3 mL) inhalation Q4-6H PRN 30 days albuterol sulfate 90 mcg/actuation (Ventolin HFA) 2 puffs PO QID PRN 30 days blood sugar diagnostic As directed blood sugar diagnostic (FreeStyle Lite Strips) Use 1 test strip once a day blood-glucose meter (FreeStyle Lite Meter kit) As directed hydrocortisone 1% (Anti-Itch (hydrocortisone)) 1 appl topical TID PRN 2 weeks lancets (FreeStyle Lancets) Use 1 lancet once a day levonorgestrel (Mirena) intrauterine losartan 25 mg PO BEDTIME omeprazole 20 mg PO DAILY rosuvastatin 10 mg PO DAILY 90 days semaglutide (Ozempic) 1 mg (0.75 mL) subcut QWEEK 4 weeks HPI Comments Details: . Nona is a pleasant 48-year-old woman with a history of diabetes mellitus which was diagnosed about 5 years ago. She has a BMI of 41. She has a hemoglobin A1c of 6.6%. Last year it was 6.1%. She was on Trulicity up until this week. It has been switched to Ozempic. She is here to start this. The urine microalbumin creatinine ratio was 117. She has no history of hypertension. She had no specific complaints today. No headache nausea vomiting. No abdominal pain constipation. No edema. No urinary symptoms like polyuria polydipsia. 09/01/2023. Overall doing well no new issues. 03/04/2023. Had cough with Lisinopril Switched to Losartan Currently on Ozempic. c/o dizziness- blames it on Ozempic No weight change yet [facility] Medical History Hirsutism GERD (gastroesophageal reflux disease) Hyperplasia of cervix Abnormal uterine bleeding (AUB) Morbid obesity due to excess calories Diabetes mellitus SAPPHIRE (obstructive sleep apnea) Mild asthma Obesity Hypothyroidism Hyperlipemia Sleep apnea Hx of thyroid disease Surgical History Hx laparoscopic cholecystectomy (05/26/22) History of esophagogastroduodenoscopy (EGD) Status post sleeve gastrectomy History of lithotripsy H/O ventral hernia repair History of appendectomy Hx of ovarian cystectomy Family History Father Diabetes mellitus Stroke Mother Diabetes mellitus CVD (cardiovascular disease) Paternal Grandmother History of breast cancer Maternal Grandmother No problems noted. Maternal Aunt Stroke Diabetes mellitus Sister In good health Maternal Grandfather Skin cancer Social History Housing: Apartment Alcohol intake: never Patient Tobacco Use Status: Never used Tobacco e-Cigarette/Vaping Use: Never Used Second Hand Smoke Exposure: No service: No Current occupational status: unemployed Sexual orientation: Straight/Heterosexual Cognitive needs: No Hearing needs: No Vision needs: Yes Female Reproductive History Menstrual Age of Menarche: 10 Physical Exam Vital Signs: Last Vital Signs Pulse 89 03/04/24 09:44 BP 126/86 03/04/24 09:44 Pulse Ox 97 03/04/24 09:44 Oxygen Delivery Method Room Air 03/04/24 09:44 BMI result Body Mass Index 42.6 Comfortable Neck supple no JVD. Lungs entry equal no rales. Heart S1-S2 heard no gallop or rub. Abdomen soft nontender. Neuro alert awake oriented. No asterixis. Extremities no edema. Results Reviewed Nephrology Results: Hgb 13.7 g/dl (12.0-16.0) 12/25/23 WBC 8.9 X10*3/uL (4.8-10.8) 12/25/23 Plt Count 335 X10*3/uL (160-400) 12/25/23 Sodium 141 mmol/L (135-145) 02/29/24 Potassium 3.6 mmol/L (3.3-5.1) 02/29/24 Chloride 105 mmol/L (96-108) 02/29/24 Carbon Dioxide 26 mmol/L (22-29) 02/29/24 BUN 12 mg/dL (9-16) 02/29/24 Creatinine 0.82 mg/dL (0.5-1.4) 02/29/24 Calcium 9.3 mg/dL (8.4-10.2) 02/29/24 Urine Protein 30 (1+) mg/dL (Neg-Trace) H 08/18/23 Urine Creatinine 233.95 mg/dL 12/25/23 Assessment & Plan Assessment & Plan (1) Microalbuminuria: Code(s): R80.9 - Proteinuria, unspecified Category: Medical (2) Essential hypertension: Code(s): I10 - Essential (primary) hypertension Category: Medical Plan . 48-year-old woman with a history of diabetes mellitus and increased BMI has microalbuminuria. Microalbuminuria is most likely due to underlying diabetic kidney disease. Obesity might be a contributing factor as well. At present renal function is stable at baseline with a creatinine of 0.7 mg/dL The goal is to slow the progression of the renal disease. Optimize blood sugar. Agree with SGLT2 inhibitors. Currently on Losartan 25 mg QD monitor urine protein excretion and titrate dose as tolerated next Urine microalbumin creatinine ratio decreased to 22 from 03/15. Encouraged her to stay on low-sodium diet She will benefit from weight loss; currently on Ozempic Encouraged her to increase physical activities ; start with walking at least 20-30 minutes a day. Orders: Orders Creatinine Urine 6 Months I10 - Essential (primary) hypertension Total Protein Urine Random 6 Months I10 - Essential (primary) hypertension Basic Metabolic Panel 6 Months I10 - Essential (primary) hypertension UA and rflx microscopic 6 Months I10 - Essential (primary) hypertension Coding Level of Care Code Est Pt Level 4 (75154) Diagnoses Microalbuminuria R80.9 Essential hypertension I10
== END 2024-03-04 09:54 | disposition home or self-care (01) ==
PROVIDERS: PCP Internal Medicine; Visit Provider Internal Medicine Hypertension Specialist
DX: R80.9 Proteinuria, unspecified (principal); I10 Essential (primary) hypertension
CPT/HCPCS: 99214

== ENCOUNTER → 2024-03-04 09:43 | Outpatient (BNVA) | payer OTHER, SELFPAY | PROVIDERS: PCP Internal Medicine; Visit Provider Internal Medicine Hypertension Specialist | DX: R80.9 Proteinuria, unspecified (principal); I10 Essential (primary) hypertension | CPT/HCPCS: 99212 ==

== ENCOUNTER 2024-03-06 15:01 | Outpatient (AMB) | payer OTHER, SELFPAY ==
--- NOTE | 2024-03-06 15:25 | A.OFFPC_ITS ---
Vital Signs 03/06/24 15:28 Height 5 ft 2 in Weight 233 lb BMI 42.6 BP 132/80 Blood Pressure Location Lt brachial Position Sitting Intake Visit Reasons: Back Pain Intake Note: Patient here c/o right side back pain going on 3 weeks Head Of Business Development Required: No Accompanied by: Self / Same As Patient Allergies nickel [NICKEL] Allergy (Mild, Verified 03/06/24 15:46) RASH pioglitazone Allergy (Unknown, Verified 03/06/24 15:46) headache, vomiting, stomach upset metformin Adverse Reaction (Intermediate, Verified 03/06/24 15:46) headache, dizziness semaglutide [From Ozempic] Adverse Reaction (Intermediate, Verified 03/06/24 15:49) Blurry Vision Medication List - Last Reconciled 03/06/24 by Jess Messina MD albuterol sulfate 2.5 mg (3 mL) inhalation Q4-6H PRN 30 days albuterol sulfate 90 mcg/actuation (Ventolin HFA) 2 puffs PO QID PRN 30 days blood sugar diagnostic As directed blood sugar diagnostic (FreeStyle Lite Strips) Use 1 test strip once a day blood-glucose meter (FreeStyle Lite Meter kit) As directed hydrocortisone 1% (Anti-Itch (hydrocortisone)) 1 appl topical TID PRN 2 weeks lancets (FreeStyle Lancets) Use 1 lancet once a day levonorgestrel (Mirena) intrauterine losartan 25 mg PO BEDTIME omeprazole 20 mg PO DAILY rosuvastatin 10 mg PO DAILY 90 days semaglutide (Ozempic) 1 mg (0.75 mL) subcut QWEEK 4 weeks Tobacco use date assessed: 03/06/24 Dental Screening Dental Screen Date: 03/06/24 Did you have a dental visit in the last 12 months?: No Did you have a dental problem in the last 6 months where you did not have access to dental care?: No Was dental information given to patient?: Patient has dentist HPI HPI Comments History of Present Illness Details This is a 49-year-old female with diabetes mellitus type 2, hypertension, hyperlipidemia and morbid obesity that comes today complaining of right costovertebral angle tenderness that started few days ago. Has history of nephrolithiasis in the past. No hematuria noted. Will order x-ray KUB to rule out renal calculi. Last A1c was 7.5% in November which is not on goal and Ozempic give her blurry vision therefore I will start her on Mounjaro. Last LDL was within goal and she is compliant with statins. Blood pressure elevated today and she did not took her losartan. Blood pressure will be recheck in 3 weeks by nurse navigator. She is morbidly obese with a BMI of 42.6 and does not want to go back to pain management. Was advised to diet and exercise to reach BMI goal less than 30. [facility] Medical History (Updated 03/06/24 @ 19:27 by Jess Messina MD) Hirsutism GERD (gastroesophageal reflux disease) Hyperplasia of cervix Abnormal uterine bleeding (AUB) Morbid obesity due to excess calories Diabetes mellitus SAPPHIRE (obstructive sleep apnea) Mild asthma Obesity Hypothyroidism Hyperlipemia Sleep apnea Hx of thyroid disease Surgical History Hx laparoscopic cholecystectomy (05/26/22) History of esophagogastroduodenoscopy (EGD) Status post sleeve gastrectomy History of lithotripsy H/O ventral hernia repair History of appendectomy Hx of ovarian cystectomy Family History Father Diabetes mellitus Stroke Mother Diabetes mellitus CVD (cardiovascular disease) Paternal Grandmother History of breast cancer Maternal Grandmother No problems noted. Maternal Aunt Stroke Diabetes mellitus Sister In good health Maternal Grandfather Skin cancer Social History Housing: Apartment Alcohol intake: never Patient Tobacco Use Status: Never used Tobacco e-Cigarette/Vaping Use: Never Used Second Hand Smoke Exposure: No service: No Current occupational status: unemployed Sexual orientation: Straight/Heterosexual Cognitive needs: No Hearing needs: No Vision needs: Yes Female Reproductive History Menstrual Age of Menarche: 10 Questionnaire PHQ-9 Over the last 2 weeks, how often have you been bothered by any of the following problems? 1. Little interest or pleasure in doing things: not at all 2. Feeling down, depressed, or hopeless: not at all 3. Trouble falling or staying asleep, or sleeping too much: not at all 4. Feeling tired or having little energy: not at all 5. Poor appetite or overeating: not at all 6. Feeling bad about yourself - or that you are a failure or have let yourself or your family down: not at all 7. Trouble concentrating on things, such as reading the newspaper or watching television: not at all 8. Moving or speaking so slowly that other people could have noticed. Or the opposite - being so fidgety or restless that you have been moving around a lot more than usual: not at all 9. Thoughts that you would be better off or of hurting yourself in some way: not at all Total score: 0 Depression Screening Interpretation: Negative Depression Screening Done: Yes 39383 - PHQ-9 Billing: Yes Source: Developed by Drs. Epifanio Montiel, Liza Oglesby, Jack Gonzáles and colleagues, with an educational almita from [employer]. Thrive Questionnaire Date Thrive assessed: 03/06/24 I am a: Patient What is your living situation today?: I have a steady place to live Within the past 12 months, did the food you bought not last and you didn't have the money to get more?: Never true Within the past 12 months, did you worry whether your food would run out before you got money to buy more?: Never true Do you have trouble paying for medicines?: No Do you have trouble getting transportation to medical appointments?: No Do you have trouble paying your heating and electricity bill?: No Do you have trouble taking care of your child, family member or friend?: No Do you have trouble with day-to-day activities such as bathing, preparing meals, shopping, managing finances, etc.?: No Are you currently unemployed and looking for a job?: No Are you interested in more education?: No Please select the resources that you would like help with: None Currently or been in a relationship where the following occur: No concerns reported THRIVE Score: 0 AUDIT C Alcohol Use Questionnaire (AUDIT-C) 1. How often do you have a drink containing alcohol?: Never Total Score: 0 Score Reviewed/Action Taken: No SAVANNAH-7 AMB Questionnaire SAVANNAH-7 Date SAVANNAH - 7 assessed: 03/06/24 Feeling nervous, anxious, or on edge: 0 = Not at all Not being able to stop or control worryin = Not at all Worrying too much about different things: 0 = Not at all Trouble relaxin = Not at all Being so restless that it is hard to sit still: 0 = Not at all Becoming easily annoyed or irritable: 0 = Not at all Feeling afraid as if something awful might happen: 0 = Not at all Total SAVANNAH-7 score (0-4 normal; 5-9 mild; 10-14 moderate; 15-21 severe): 0 Source: Developed by Drs. Epifanio Montiel, Liza Oglesby, Jack Gonzáles and colleagues, with an educational almita from [employer]. SAVANNAH-7 Assessment Billing SAVANNAH-7 Assessment Tool: SAVANNAH-7 Assessment [id number] Review of Systems Const All systems reviewed & are unremarkable except as noted in HPI and below Card Denies chest pain at rest, Denies chest pain with activity, Denies edema, Denies irregular heart rhythm, Denies claudication, Denies dyspnea, Denies dyspnea on exertion, Denies orthopnea, Denies paroxysmal nocturnal dyspnea and Denies slow heart rate Resp Denies cough, Denies dyspnea and Denies dyspnea on exertion GI Denies abdominal pain, Denies change in bowel habits, Denies excessive flatus, Denies nausea and Denies vomiting Physical exam (Primary Care) Vital Signs: Last Vital Signs BP 132/80 03/06/24 15:28 BMI result Body Mass Index 42.6 BMI Assessment/Plan discussion: High BMI High, discussed plan: lifestyle, weight reduction, dietary and physical activity Tobacco/Smoking Status: Tobacco use Status Tobacco use date assessed 03/06/24 03/06/24 15:33 Patient Tobacco Use Status Never used Tobacco 03/06/24 15:33 e-Cigarette/Vaping Use Never Used 03/06/24 15:33 PHQ-9: PHQ-9 Score PHQ-9: Total score 0 03/06/24 17:00 Depression Screening Interpretation: Negative Thrive Assessment: Date of Thrive Assessment Date Thrive assessed 03/06/24 03/06/24 15:33 Currently or been in a relationship where the following occur: No concerns reported Resp Effort & Inspection: normal respiratory effort Auscultation: clear to auscultation bilaterally Cardio Jugular venous distension: no JVD Rate: regular rate Rhythm: regular rhythm Heart sounds: S1 normal heart sound present and S2 normal heart sound present Back/Spine/Pelvis Thoracic/Lumbar Spine: thoracic spinal tenderness Extrem General: Yes full ROM Coding Level of Care Code Est Pt Level 4 (86894) Complex EM visit Add On G2211 Diagnoses Hyperlipidemia LDL goal <70 E78.5 Type 2 diabetes mellitus without complication, without long-term current use of insulin E11.9 Diabetes mellitus type: type 2 Diabetes mellitus assisted insulin use: without tank terminal gauger use Diabetes mellitus complication status: without complication Morbid obesity due to excess calories E66.01 Essential hypertension I10 Additional Codes SAVANNAH-7 Assessment Billing - SAVANNAH-7 Assessment Tool: SAVANNAH-7 Assessment [id number] ([id number]) PHQ-9 - 44347 - PHQ-9 Billing: Yes ([id number]) Time Spent (min) 22 Assessment & Plan Assessment & Plan (1) Hyperlipidemia LDL goal <70: Code(s): E78.5 - Hyperlipidemia, unspecified Category: Medical Plan: Continue statins. LDL goal is less than 70. (2) Diabetes mellitus: Code(s): E11.9 - Type 2 diabetes mellitus without complications Category: Medical Qualifiers: Diabetes mellitus type: type 2 Diabetes mellitus assisted insulin use: without tank terminal gauger use Diabetes mellitus complication status: without complication Qualified Code(s): E11.9 - Type 2 diabetes mellitus without complications Plan: Start Mounjaro. A1c goal is equal or less than 7%. (3) Morbid obesity due to excess calories: Code(s): E66.01 - Morbid (severe) obesity due to excess calories Category: Medical Plan: Start diet and exercise. BMI goal is less than 30. Consider weight management again. (4) Essential hypertension: Code(s): I10 - Essential (primary) hypertension Category: Medical Plan: Be compliant with losartan. Recheck blood pressure with nurse navigator in 3 weeks. Blood pressure goal is equal or less than 130/80 Orders: Orders IRON PROFILE Today D64.9 - Anemia, unspecified Vitamin B12 and Folate Today E53.8 - Deficiency of other specified B group vitamins Microalbumin, Random (w Creat) Today R80.9 - Proteinuria, unspecified Comprehensive [place]. Panel Fast Today E11.9 - Type 2 diabetes mellitus without complications XR KUB Today N20.0 - Calculus of kidney Complete Blood Count Auto Diff Today D64.9 - Anemia, unspecified Vitamin D 25-OH Total Today E55.9 - Vitamin D deficiency, unspecified Lipid Panel Today E78.5 - Hyperlipidemia, unspecified Medications: New tirzepatide (Mounjaro) for 4 weeks 2.5 mg (0.5 mL) subcut QWEEK 4 weeks 2 mL 0RF E11.9 - Type 2 diabetes mellitus without complications
[2024-03-06 15:28] VITALS: BP 132/80; BMI 42.6
== END 2024-03-06 15:53 | disposition home or self-care (01) ==
PROVIDERS: PCP Internal Medicine; Visit Provider Internal Medicine
DX: E11.69 Type 2 diabetes mellitus with other specified complication (principal); E66.01 Morbid (severe) obesity due to excess calories; Z68.41 Body mass index [BMI] 40.0-44.9, adult; E78.5 Hyperlipidemia, unspecified; I10 Essential (primary) hypertension

== ENCOUNTER → 2024-03-06 15:01 | Outpatient (BNVA) | payer OTHER, SELFPAY | PROVIDERS: PCP Internal Medicine; Visit Provider Internal Medicine | DX: M54.9 Dorsalgia, unspecified (principal); E11.9 Type 2 diabetes mellitus without complications; I10 Essential (primary) hypertension; E78.00 Pure hypercholesterolemia, unspecified; E66.01 Morbid (severe) obesity due to excess calories; E78.5 Hyperlipidemia, unspecified; Z68.41 Body mass index [BMI] 40.0-44.9, adult | CPT/HCPCS: 96127; 99212 ==

== ENCOUNTER 2024-03-15 08:19 | Outpatient (REF) | payer OTHER, SELFPAY ==
--- NOTE | ~2024-03-15 | XR_ITS ---
EXAMINATION: XR ABDOMEN 1 VIEW (KUB) HISTORY: N20.0 - Calculus of kidney COMPARISON: Comparison is made with the prior examination dated 06/20/2018. FINDINGS: Three supine views of the abdomen are submitted. The bowel gas pattern is unremarkable, without evidence of mechanical obstruction. No abnormal calcifications are identified. There are surgical clips about the stomach and in the right lower quadrant. An IUD is noted in the pelvis. There are no abnormal soft tissue masses. The bones are intact. XR/XR KUB IMPRESSION: No suspicious calcifications are identified. Electronically signed by: Epifanio Pathak MD 03/15/2024 03:57 PM EST
== END 2024-03-15 08:20 | disposition home or self-care (01) ==
LOC: HO.XRAY 08:19
PROVIDERS: PCP Internal Medicine; Visit Provider Internal Medicine
DX: N20.0 Calculus of kidney (principal)
CPT/HCPCS: 74018

== ENCOUNTER → 2024-03-15 08:23 | Outpatient (BNV) | payer OTHER, SELFPAY | PROVIDERS: PCP Internal Medicine; Visit Provider Radiology Diagnostic Radiology | DX: N20.0 Calculus of kidney (principal) | CPT/HCPCS: 74018 ==

== ENCOUNTER 2024-05-29 07:47 | Outpatient (AMB) | payer OTHER, SELFPAY ==
--- NOTE | 2024-05-29 07:57 | A.OFFPC_ITS ---
Vital Signs 05/29/24 08:00 Height 5 ft 2 in Weight 231 lb 7.766 oz BMI 42.3 BP 110/80 Blood Pressure Location Lt brachial Position Sitting Intake Visit Reasons: dm Intake Note: Patient here for a follow up DM Diamond Driller Helper Required: Yes Diamond Driller Helper Language: Operations Support Manager Name: Jess Messina MD Information Interpreted: non-clinical & clinical Accompanied by: Self / Same As Patient Allergies nickel [NICKEL] Allergy (Mild, Verified 05/29/24 08:11) RASH pioglitazone Allergy (Unknown, Verified 05/29/24 08:11) headache, vomiting, stomach upset metformin Adverse Reaction (Intermediate, Verified 05/29/24 08:11) headache, dizziness semaglutide [From Ozempic] Adverse Reaction (Intermediate, Verified 05/29/24 08:11) Blurry Vision Medication List - Last Reconciled 05/29/24 by Jess Messina MD albuterol sulfate 2.5 mg (3 mL) inhalation Q4-6H PRN 30 days albuterol sulfate 90 mcg/actuation (Ventolin HFA) 2 puffs PO QID PRN 30 days blood sugar diagnostic As directed blood sugar diagnostic (FreeStyle Lite Strips) Use 1 test strip once a day blood-glucose meter (FreeStyle Lite Meter kit) As directed hydrocortisone 1% (Anti-Itch (hydrocortisone)) 1 appl topical TID PRN 2 weeks lancets (FreeStyle Lancets) Use 1 lancet once a day levonorgestrel (Mirena) intrauterine losartan 25 mg PO BEDTIME omeprazole 20 mg PO DAILY rosuvastatin 10 mg PO DAILY 90 days Tobacco use date assessed: 03/06/24 Dental Screening Dental Screen Date: 03/06/24 HPI HPI Comments History of Present Illness Details The patient is a 49-year-old female presenting for follow-up on Type 2 Diabetes Mellitus. Her Hemoglobin A1c of 9.9 reflects inadequate glycemic control. Earlier treatments with metformin resulted in headache and dizziness, and Ozempic usage led to blurred vision. Current diabetes therapy needs adjustment due to these medication side effects. Her past A1c readings suggest inadequate diabetes control requiring a revised treatment plan. Hypertension is being managed with losartan 25 mg, and the current blood pressure reading of 110/80 mmHg is within control. Hyperlipidemia treatment with rosuvastatin 10 mg has been effective, as her LDL cholesterol level remains below 70. The patient has a historical diagnosis of Manjula's thyroiditis with recent normal thyroid function tests. She also reports well-managed gastroesophageal reflux disease with the help of omeprazole. Reported nickel allergy and adverse reactions to empioiglitazone include headaches. [facility] Medical History (Updated 05/29/24 @ 08:41 by Jess Messina MD) Hirsutism GERD (gastroesophageal reflux disease) Hyperplasia of cervix Abnormal uterine bleeding (AUB) Morbid obesity due to excess calories Diabetes mellitus SAPPHIRE (obstructive sleep apnea) Mild asthma Obesity Hypothyroidism Hyperlipemia Sleep apnea Hx of thyroid disease Surgical History Hx laparoscopic cholecystectomy (05/26/22) History of esophagogastroduodenoscopy (EGD) Status post sleeve gastrectomy History of lithotripsy H/O ventral hernia repair History of appendectomy Hx of ovarian cystectomy Family History Father Diabetes mellitus Stroke Mother Diabetes mellitus CVD (cardiovascular disease) Paternal Grandmother History of breast cancer Maternal Grandmother No problems noted. Maternal Aunt Stroke Diabetes mellitus Sister In good health Maternal Grandfather Skin cancer Social History Housing: Apartment Alcohol intake: never Patient Tobacco Use Status: Never used Tobacco e-Cigarette/Vaping Use: Never Used Second Hand Smoke Exposure: No service: No Current occupational status: unemployed Sexual orientation: Straight/Heterosexual Cognitive needs: No Hearing needs: No Vision needs: Yes Female Reproductive History Menstrual Age of Menarche: 10 Questionnaire Thrive Questionnaire Date Thrive assessed: 03/06/24 SAVANNAH-7 AMB Questionnaire SAVANNAH-7 Date SAVANNAH - 7 assessed: 03/06/24 Source: Developed by Drs. Epifanio Montiel, Liza Oglesby, Jack Gonzáles and colleagues, with an educational almita from [employer]. Review of Systems Const All systems reviewed & are unremarkable except as noted in HPI and below Card Denies chest pain at rest, Denies chest pain with activity, Denies edema, Denies irregular heart rhythm, Denies claudication, Denies dyspnea, Denies dyspnea on exertion, Denies orthopnea, Denies paroxysmal nocturnal dyspnea and Denies slow heart rate Resp Denies cough, Denies dyspnea and Denies dyspnea on exertion GI Denies abdominal pain, Denies change in bowel habits, Denies excessive flatus, Denies nausea and Denies vomiting Neuro Denies lack of coordination Physical exam (Primary Care) Vital Signs: Last Vital Signs BP 110/80 05/29/24 08:00 BMI result Body Mass Index 42.3 BMI Assessment/Plan discussion: High BMI High, discussed plan: lifestyle, weight reduction, dietary and physical activity Tobacco/Smoking Status: Tobacco use Status Tobacco use date assessed 03/06/24 05/29/24 08:01 Patient Tobacco Use Status Never used Tobacco 05/29/24 08:01 e-Cigarette/Vaping Use Never Used 05/29/24 08:01 Thrive Assessment: Date of Thrive Assessment Date Thrive assessed 03/06/24 05/29/24 08:01 Resp Effort & Inspection: normal respiratory effort Auscultation: clear to auscultation bilaterally Cardio Jugular venous distension: no JVD Rate: regular rate Rhythm: regular rhythm Heart sounds: S1 normal heart sound present and S2 normal heart sound present Extrem General: Yes full ROM Results AMB Hemoglobin A1c AMB Hemoglobin A1c 9.9 % Last Edit by BALDOMERO Li on 05/29/24 08:1 1 Results Reviewed Results Reviewed: Laboratory Last Values Hgb A1c (Clinic) 9.9 % (4.0-6.0) H 05/29/24 07:57 Coding Level of Care Code Est Pt Level 4 (31011) Complex EM visit Add On G2211 Diagnoses Manjula's thyroiditis E06.3 Hyperlipidemia LDL goal <70 E78.5 Essential hypertension I10 Type 2 diabetes mellitus without complication, without long-term current use of insulin E11.9 Diabetes mellitus type: type 2 Diabetes mellitus senior living insulin use: without termite treater helper use Diabetes mellitus complication status: without complication Morbid obesity due to excess calories E66.01 Time Spent (min) 24 Assessment & Plan Assessment & Plan (1) Manjula's thyroiditis: Code(s): E06.3 - Autoimmune thyroiditis Category: Medical (2) Hyperlipidemia LDL goal <70: Code(s): E78.5 - Hyperlipidemia, unspecified Category: Medical (3) Essential hypertension: Code(s): I10 - Essential (primary) hypertension Category: Medical (4) Diabetes mellitus: Code(s): E11.9 - Type 2 diabetes mellitus without complications Category: Medical Qualifiers: Diabetes mellitus type: type 2 Diabetes mellitus termite treater helper insulin use: without termite treater helper use Diabetes mellitus complication status: without complication Qualified Code(s): E11.9 - Type 2 diabetes mellitus without complications (5) Morbid obesity due to excess calories: Code(s): E66.01 - Morbid (severe) obesity due to excess calories Category: Medical Plan Management of the patient's Type 2 Diabetes Mellitus is adjusting due to suboptimal A1c levels. Initiation of Trulicity is considered based on prior stability and absence of adverse reactions, contingent on insurance approval. Labs, including glycemic and lipid panels, will be repeated in 4 months to evaluate treatment progress. Current hypertension and hyperlipidemia treatments remain effective with losartan and rosuvastatin. A follow-up thyroid function test is scheduled in line with her Manjula's thyroiditis history. Patient was informed and verbally consented to the use of an ambient scribe for clinic note documentation during this visit. Reviewed the patient?s current HbA1c of 9.9 and discussed the need for improved diabetes control and possible medication changes. Discussed starting Trulicity, assuring the patient of its tolerability and weekly dosing schedule, subject to insurance approval. The patient was informed of alternative options if Trulicity is non-viable, including Januvia or Jardiance. Follow-up lab work is planned for four months, which will guide ongoing diabetes management. We addressed hypertension and hyperlipidemia, confirming current treatments remain unchanged given adequate control of these conditions. Patient consented to the proposed plan, and we scheduled follow-up care accordingly. Orders: Orders Vitamin D 25-OH Total 4 Months E55.9 - Vitamin D deficiency, unspecified Complete Blood Count Auto Diff 4 Months D50.9 - Iron deficiency anemia, unspecified, D64.9 - Anemia, unspecified IRON PROFILE 4 Months D50.9 - Iron deficiency anemia, unspecified, D64.9 - Anemia, unspecified Thyroid Stimulating Hormone 4 Months E06.3 - Autoimmune thyroiditis AMB Hemoglobin A1c Today E11.9 - Type 2 diabetes mellitus without complications Lipid Panel 4 Months E78.5 - Hyperlipidemia, unspecified Microalbumin, Random (w Creat) 4 Months R80.9 - Proteinuria, unspecified Comprehensive [place]. Panel Fast 4 Months E78.5 - Hyperlipidemia, unspecified Medications: New dulaglutide (Trulicity) 0.75 mg (0.5 mL) subcut QWEEK 6.5 mL 1RF 90 days Patient Instructions: - Start Trulicity as discussed, pending insurance approval. - Report any side effects immediately, especially blurred vision or significant dizziness. - Continue current hypertension and hyperlipidemia medications as prescribed. - Follow dietary recommendations for managing diabetes and hypertension. - Return for lab re-evaluation in 4 months. - Contact the office with any worsening symptoms or new concerns.
[2024-05-29 08:00] VITALS: BP 110/80; BMI 42.3
== END 2024-05-29 08:43 | disposition home or self-care (01) ==
LOC: HO.HMCH 07:48
PROVIDERS: PCP Internal Medicine; Visit Provider Internal Medicine
DX: E11.69 Type 2 diabetes mellitus with other specified complication (principal); E66.01 Morbid (severe) obesity due to excess calories; Z68.41 Body mass index [BMI] 40.0-44.9, adult; E78.5 Hyperlipidemia, unspecified; E06.3 Autoimmune thyroiditis; I10 Essential (primary) hypertension

== ENCOUNTER → 2024-05-29 07:47 | Outpatient (BNVA) | payer OTHER, SELFPAY | PROVIDERS: PCP Internal Medicine; Visit Provider Internal Medicine | DX: E06.3 Autoimmune thyroiditis (principal); E78.5 Hyperlipidemia, unspecified; I10 Essential (primary) hypertension; E11.9 Type 2 diabetes mellitus without complications; E66.01 Morbid (severe) obesity due to excess calories | CPT/HCPCS: 83036; 99212 ==

== ENCOUNTER 2024-08-19 08:00 | Outpatient (REF) | payer OTHER, SELFPAY ==
[2024-08-19 09:35] LABS: Anion Gap 10 (12-20); Blood Urea Nitrogen 10 mg/dL (9-16); Carbon Dioxide 27 mmol/L (22-29); Chloride 104 mmol/L (96-108); Estimated Glomerular Filt Rate > 60; Glucose Random 204 mg/dL (60-115); Potassium 3.3 mmol/L (3.3-5.1); Sodium 138 mmol/L (135-145)
== END 2024-08-19 08:01 | disposition home or self-care (01) ==
LOC: HO.LAB 08:00
PROVIDERS: PCP Internal Medicine; Visit Provider Internal Medicine Hypertension Specialist
DX: I10 Essential (primary) hypertension (principal)
CPT/HCPCS: 36415; 80048

== ENCOUNTER 2024-08-20 08:52 | Outpatient (REF) | payer OTHER, SELFPAY ==
[2024-08-20 09:34] LABS: Creatinine Urine 231.68 mg/dL; Total Protein Urine Random 28 mg/dL (<12)
== END 2024-08-20 08:53 | disposition home or self-care (01) ==
LOC: HO.LNP 08:52
PROVIDERS: Visit Provider Internal Medicine Hypertension Specialist
DX: R80.9 Proteinuria, unspecified (principal)
CPT/HCPCS: 82570; 84156

== ENCOUNTER 2024-08-26 09:46 | Outpatient (AMB) | payer OTHER, SELFPAY ==
[2024-08-26 09:51] VITALS: BP 122/82; PULSE 78; O2SAT 96; BMI 43.3
--- NOTE | 2024-08-26 09:51 | HO.NEPHOV ---
Vital Signs 08/26/24 09:51 Height 5 ft 2 in Weight 237 lb BMI 43.3 BP 122/82 Blood Pressure Location Lt brachial Position Sitting Pulse 78 Pulse Source Pulse Oximeter Pulse Oximetry (%) 96 Oxygen Delivery Method Room Air Intake Visit Reasons: 6mon follow up/ Conf Government Instructor Required: No Accompanied by: Self / Same As Patient Allergies nickel (NICKEL) Allergy (Mild, Verified 08/26/24 09:52) RASH pioglitazone Allergy (Unknown, Verified 08/26/24 09:52) headache, vomiting, stomach upset metformin Adverse Reaction (Intermediate, Verified 08/26/24 09:52) headache, dizziness semaglutide (From Ozempic) Adverse Reaction (Intermediate, Verified 08/26/24 09:52) Blurry Vision Medication List - Last Reconciled 08/26/24 by Rajesh Espinoza MD albuterol sulfate 2.5 mg (3 mL) inhalation Q4-6H PRN 30 days albuterol sulfate 90 mcg/actuation (Ventolin HFA) 2 puffs PO QID PRN 30 days blood sugar diagnostic As directed blood sugar diagnostic (FreeStyle Lite Strips) Use 1 test strip once a day blood-glucose meter (FreeStyle Lite Meter kit) As directed dulaglutide (Trulicity) 0.75 mg (0.5 mL) subcut QWEEK 90 days hydrocortisone 1% (Anti-Itch (hydrocortisone)) 1 appl topical TID PRN 2 weeks lancets (FreeStyle Lancets) Use 1 lancet once a day levonorgestrel (Mirena) intrauterine losartan 50 mg PO DAILY 90 days omeprazole 20 mg PO DAILY rosuvastatin 10 mg PO DAILY 90 days HPI Comments Details: . Nona is a pleasant 48-year-old woman with a history of diabetes mellitus which was diagnosed about 5 years ago. She has a BMI of 41. She has a hemoglobin A1c of 6.6%. Last year it was 6.1%. She was on Trulicity up until this week. It has been switched to Ozempic. She is here to start this. The urine microalbumin creatinine ratio was 117. She has no history of hypertension. She had no specific complaints today. No headache nausea vomiting. No abdominal pain constipation. No edema. No urinary symptoms like polyuria polydipsia. 09/01/2023. Overall doing well no new issues. 03/04/2023. Had cough with Lisinopril Switched to Losartan Currently on Ozempic. c/o dizziness- blames it on Ozempic No weight change yet 08/26/24 The patient is a 49-year-old female presenting with Type 2 Diabetes Mellitus and obesity. Her last recorded HbA1c in May was 9.9%, indicating poor glycemic control. She reports a weight increase from 231 pounds in May to 237 pounds currently, with no regular exercise due to caregiving responsibilities for her brother. The patient has a history of hypertension, which is currently well-controlled. Her current medications include Trulicity, losartan, omeprazole, and rosuvastatin, which she is tolerating well. She has not been on insulin therapy and previously experienced adverse effects from oral hypoglycemic agents. [facility] Medical History (Updated 05/29/24 @ 08:41 by Jess Messina MD) Hirsutism GERD (gastroesophageal reflux disease) Hyperplasia of cervix Abnormal uterine bleeding (AUB) Morbid obesity due to excess calories Diabetes mellitus SAPPHIRE (obstructive sleep apnea) Mild asthma Obesity Hypothyroidism Hyperlipemia Sleep apnea Hx of thyroid disease Surgical History Hx laparoscopic cholecystectomy (05/26/22) History of esophagogastroduodenoscopy (EGD) Status post sleeve gastrectomy History of lithotripsy H/O ventral hernia repair History of appendectomy Hx of ovarian cystectomy Family History Father Diabetes mellitus Stroke Mother Diabetes mellitus CVD (cardiovascular disease) Paternal Grandmother History of breast cancer Maternal Grandmother No problems noted. Maternal Aunt Stroke Diabetes mellitus Sister In good health Maternal Grandfather Skin cancer Social History Housing: Apartment Alcohol intake: never Patient Tobacco Use Status: Never used Tobacco e-Cigarette/Vaping Use: Never Used Second Hand Smoke Exposure: No service: No Current occupational status: unemployed Sexual orientation: Straight/Heterosexual Cognitive needs: No Hearing needs: No Vision needs: Yes Female Reproductive History Menstrual Age of Menarche: 10 Physical Exam Vital Signs: Last Vital Signs Pulse 78 08/26/24 09:51 BP 122/82 08/26/24 09:51 Pulse Ox 96 08/26/24 09:51 Oxygen Delivery Method Room Air 08/26/24 09:51 BMI result Body Mass Index 43.3 Comfortable Neck supple no JVD. Lungs entry equal no rales. Heart S1-S2 heard no gallop or rub. Abdomen soft nontender. Neuro alert awake oriented. No asterixis. Extremities no edema. Results Reviewed Nephrology Results: Sodium, (135-145) 138 mmol/L 08/19/24 Potassium, (3.3-5.1) 3.3 mmol/L 08/19/24 Chloride, (96-108) 104 mmol/L 08/19/24 Carbon Dioxide, (22-29) 27 mmol/L 08/19/24 BUN, (9-16) 10 mg/dL 08/19/24 Creatinine, (0.5-1.4) 0.76 mg/dL 08/19/24 Calcium, (8.4-10.2) 9.0 mg/dL 08/19/24 Urine Creatinine 231.68 mg/dL 08/20/24 Assessment & Plan Assessment & Plan (1) Microalbuminuria: Code(s): R80.9 - Proteinuria, unspecified Category: Medical (2) Essential hypertension: Code(s): I10 - Essential (primary) hypertension Category: Medical Plan . 49-year-old woman with a history of diabetes mellitus and increased BMI has microalbuminuria. Microalbuminuria is most likely due to underlying diabetic kidney disease. Obesity might be a contributing factor as well. At present renal function is stable at baseline with a creatinine of 0.7 mg/dL The goal is to slow the progression of the renal disease. Optimize blood sugar. Will benefit from SGLT2 inhibitors. Currently on Losartan 50 mg QD monitor urine protein excretion and titrate dose as tolerated next Urine microalbumin creatinine ratio decreased to 22 from 03/15. Encouraged her to stay on low-sodium diet She will benefit from weight loss; currently on Ozempic Encouraged her to increase physical activities ; Discussed walking at least 30-40 minutes a day. Coding Level of Care Code Est Pt Level 4 (27863) Diagnoses Microalbuminuria R80.9 Essential hypertension I10
== END 2024-08-26 10:05 | disposition home or self-care (01) ==
LOC: HO.HKA 09:46
PROVIDERS: PCP Internal Medicine; Visit Provider Internal Medicine Hypertension Specialist
DX: R80.9 Proteinuria, unspecified (principal); I10 Essential (primary) hypertension
CPT/HCPCS: 99214

== ENCOUNTER → 2024-08-26 09:46 | Outpatient (BNVA) | payer OTHER, SELFPAY | PROVIDERS: PCP Internal Medicine; Visit Provider Internal Medicine Hypertension Specialist | DX: I10 Essential (primary) hypertension (principal); R80.9 Proteinuria, unspecified; E11.9 Type 2 diabetes mellitus without complications; E66.9 Obesity, unspecified | CPT/HCPCS: 99212 ==

== ENCOUNTER 2024-09-05 10:47 | Outpatient (REF) | payer OTHER, SELFPAY | END 2024-09-05 10:48 | disposition home or self-care (01) | LOC: HO.MAMMO 10:47 | PROVIDERS: PCP Internal Medicine; Visit Provider Internal Medicine | DX: Z12.31 Encounter for screening mammogram for malignant neoplasm of breast (principal) | CPT/HCPCS: 77063; 77067 ==

== ENCOUNTER → 2024-09-05 11:15 | Outpatient (BNV) | payer OTHER, SELFPAY | PROVIDERS: PCP Internal Medicine; Visit Provider Radiology Body Imaging | DX: Z12.31 Encounter for screening mammogram for malignant neoplasm of breast (principal) | CPT/HCPCS: 77063; 77067 ==

== ENCOUNTER 2024-11-28 08:20 | Outpatient (AMB) | payer OTHER, SELFPAY ==
[2024-11-28 08:33] VITALS: BP 122/78; BMI 43.7
--- NOTE | 2024-11-28 08:33 | A.OFFVIS_ITS ---
Vital Signs 11/28/24 08:33 Height 5 ft 2 in Weight 239 lb BMI 43.7 BP 122/78 Intake Visit Reasons: PHERESIS SPECIALIST annual exam Lactation Consultant: Lactation Consultant Present (Barbara) Allergies nickel (NICKEL) Allergy (Mild, Verified 11/28/24 08:33) RASH pioglitazone Allergy (Unknown, Verified 11/28/24 08:33) headache, vomiting, stomach upset metformin Adverse Reaction (Intermediate, Verified 11/28/24 08:33) headache, dizziness semaglutide (From Ozempic) Adverse Reaction (Intermediate, Verified 11/28/24 08:33) Blurry Vision HPI Comments Details: Patient is a premenopausal woman presenting for annual examination. Card Table Attendant concerns: none. Random spotting w/the Mirena. Currently is not sexually active. She denies vaginal itching or irritation. STI screening offered; she declines. She tries to eat healthy and stays active with exercise. Family history of breast cancer. Last pap smear 2021, negative. Mammogram: 2024. [facility] Medical History Hirsutism GERD (gastroesophageal reflux disease) Hyperplasia of cervix Abnormal uterine bleeding (AUB) Morbid obesity due to excess calories Diabetes mellitus SAPPHIRE (obstructive sleep apnea) Mild asthma Obesity Hypothyroidism Hyperlipemia Sleep apnea Hx of thyroid disease Surgical History Hx laparoscopic cholecystectomy (05/26/22) History of esophagogastroduodenoscopy (EGD) Status post sleeve gastrectomy History of lithotripsy H/O ventral hernia repair History of appendectomy Hx of ovarian cystectomy Family History Father Diabetes mellitus Stroke Mother Diabetes mellitus CVD (cardiovascular disease) Paternal Grandmother History of breast cancer Maternal Grandmother No problems noted. Maternal Aunt Stroke Diabetes mellitus Sister In good health Maternal Grandfather Skin cancer Social History Housing: Apartment Alcohol intake: never Patient Tobacco Use Status: Never used Tobacco e-Cigarette/Vaping Use: Never Used Second Hand Smoke Exposure: No service: No Current occupational status: unemployed Sexual orientation: Straight/Heterosexual Cognitive needs: No Hearing needs: No Vision needs: Yes Female Reproductive History Menstrual Age of Menarche: 10 control method: progestin IUCD (Mirena 01/2022) Total pregnancies: 0 Date of last pap smear: 12/13/21 (neg pap and hpv) Date of Mammogram: 09/05/24 ([facility] 1) Review of Systems Const All systems reviewed & are unremarkable except as noted in HPI and below Reports as per HPI Eyes Reports no additional complaints ENT Reports no additional complaints Card Reports no additional complaints Resp Reports no additional complaints GI Reports as per HPI and Reports no additional complaints Reports as per HPI Musc Reports no additional complaints Skin/Breast Reports as per HPI Neuro Reports no additional complaints Psych Reports no additional complaints Endo Reports no additional complaints Mando/Lymph Reports no additional complaints Aller/Immun Reports no additional complaints Physical Exam Vital Signs: Last Vital Signs BP 122/78 11/28/24 08:33 BMI result Body Mass Index 43.7 Const General: cooperative, healthy appearing, no acute distress, well developed and alert Orientation/consciousness: patient oriented x3 HEENT Head: Yes normal to inspection Eyes General: appearance normal, both eyes and all related structures Neck Neck: Yes normal visual inspection Thyroid: Thyroid normal Chest Chest palpation & inspection: normal inspection of the chest and other (no puckering, dimpling, peau de orange, retraction, discharge, masses) Breast/axilla inspection: normal inspection of the breasts Breast/axilla palpation: normal palpation of the breasts Resp Effort & Inspection: normal respiratory effort GI Inspection: Yes normal to inspection Palpation (GI): Soft to palpation Rectal Exam - Female: deferred General: Yes bladder normal to palpation External Female Exam: normal external appearance and normal appearance of the urethra Speculum Exam - Vagina: normal appearance of the vagina, normal palpation and normal vaginal discharge Speculum Exam - Cervix: normal appearance of the cervix, normal palpation and Other cervical findings present (IUD strings at the os) Bimanual exam- vagina & uterus: normal bimanual exam, normal palpation, uterine size normal, bladder normal to palpation, normal palpation and non-tender Bimanual Exam- Adnexa, other: no masses Skin General skin exam: no rashes or lesions noted Rashes: no rashes Neuro General: patient oriented x3 Cognition (Neuro): normal cognition Extrem General: Yes normal to inspection Psych Attitude: cooperative Thought process: Normal thought process present Assessment & Plan Assessment & Plan (1) Encounter for well woman exam with routine gynecological exam: Code(s): Z01.419 - Encounter for gynecological examination (general) (routine) without abnormal findings Category: Medical Plan Discussed: Current recommendations for pap smears per ASCCP guidelines. Breast awareness, periodic self breast exams and yearly mammogram. Maintain a healthy lifestyle, well balanced diet including Calcium 1,200 mg and Vitamin D 600 IU daily, and routine exercise. Patient verbalizes understanding and agrees to the plan of care. She was given opportunity to ask questions and all questions were answered to the best of my ability. RTO in 1 year for annual single stayer operator exam. This note is constructed using voice recognition software. While every effort has been made to ensure accuracy, filament wound parts fabricator errors may have been included. Coding Level of Care Code Est Pt Prev Care 40-64y(25180) Diagnoses Encounter for well woman exam with routine gynecological exam Z01.419
== END 2024-11-28 08:59 | disposition home or self-care (01) ==
LOC: HO.HWSW 08:20
PROVIDERS: PCP Internal Medicine; Visit Provider Advanced Practice Midwife
DX: Z01.419 Encounter for gynecological examination (general) (routine) without abnormal findings (principal)
CPT/HCPCS: 99396; 99459

== ENCOUNTER → 2024-11-28 08:20 | Outpatient (BNVA) | payer OTHER, SELFPAY | PROVIDERS: PCP Internal Medicine; Visit Provider Advanced Practice Midwife | DX: Z01.419 Encounter for gynecological examination (general) (routine) without abnormal findings (principal) | CPT/HCPCS: 99396 ==

== ENCOUNTER 2025-02-03 08:07 | Outpatient (REF) | payer OTHER, SELFPAY ==
[2025-02-03 08:27] LABS: MANUAL DIFF FLAG NO
[2025-02-03 08:50] LABS: Hematocrit 41.4 % (37.0-47.0); Hemoglobin 13.3 g/dl (12.0-16.0); Imm Gran Abs Auto 0.03 X10*3/uL (0.00-0.03); Imm Gran Pct Auto 0.3 % (0.0-0.4); Lymphocytes Absolute Auto 1.9 X10*3/uL (1.2-4.9); Mean Corpuscular HGB Conc 32.1 g/dl (31.0-35.0); Mean Corpuscular Hemoglobin 27.4 pg (27.0-33.0); Mean Corpuscular Volume 85.4 fL (80.0-98.0); NRBC Abs Auto 0.000 X10*3/uL (0.0-0.012); NRBC Pct Auto 0.0 /100WBC (0.0-0.2); Platelet Count 367 X10*3/uL (160-400); Red Blood Count 4.85 X10*6/uL (4.20-5.50); White Blood Count 9.7 X10*3/uL (4.8-10.8)
[2025-02-03 09:20] LABS: Alanine Aminotransferase 36 U/L (0-31); Albumin Level 4.2 g/dL (3.5-5.0); Alkaline Phosphatase 71 U/L (39-117); Anion Gap 13 (12-20); Aspartate Amino Transferase 38 U/L (5-31); Blood Urea Nitrogen 13 mg/dL (9-16); Calcium 9.2 mg/dL (8.4-10.2); Carbon Dioxide 25 mmol/L (22-29); Chloride 104 mmol/L (96-108); Cholesterol 99 mg/dL (<200); Estimated Glomerular Filt Rate > 60; HDL Cholesterol 33 mg/dL (>40); Iron 35 mcg/dL (30-160); Percent Iron Saturation 11 % (15-50); Potassium 3.6 mmol/L (3.3-5.1); Sodium 138 mmol/L (135-145); Total Iron Binding Capacity 331 mcg/dL (228-428); Total Protein 7.7 g/dL (6.5-8.0); Triglycerides 60 mg/dL (<150); Unsaturated Iron Binding 296 ug/dL
[2025-02-03 09:43] LABS: Thyroid Stimulating Hormone 3.68 uIU/mL (0.32-4.0)
[2025-02-03 09:45] LABS: Folate 13.0 ng/mL (> or = 4.0); Vitamin B12 469 pg/mL (200-900)
== END 2025-02-03 08:08 | disposition home or self-care (01) ==
LOC: HO.LAB 08:07
PROVIDERS: PCP Internal Medicine; Visit Provider Internal Medicine
DX: E11.9 Type 2 diabetes mellitus without complications (principal); D50.9 Iron deficiency anemia, unspecified; E06.3 Autoimmune thyroiditis; E55.9 Vitamin D deficiency, unspecified; E78.5 Hyperlipidemia, unspecified; E53.8 Deficiency of other specified B group vitamins
CPT/HCPCS: 36415; 80053; 80061; 82306; 82607; 82746; 83540; 84443; 85025

== ENCOUNTER 2025-02-04 13:46 | Outpatient (AMB) | payer OTHER, SELFPAY ==
[2025-02-04 14:34] VITALS: BP 130/88; PULSE 79; RESP 18; O2SAT 98; BMI 43.0
--- NOTE | 2025-02-04 14:34 | A.OFFPC_ITS ---
Vital Signs 02/04/25 14:34 Height 5 ft 2 in Weight 235 lb 6 oz BMI 43.0 BP 130/88 Blood Pressure Location Lt brachial Position Sitting Respiration 18 Pulse 79 Pulse Source Pulse Oximeter Temp Source Temporal Artery Scan Pulse Oximetry (%) 98 Oxygen Delivery Method Room Air Intake Visit Reasons: Itchy spot on skin- repeat A1C needed! 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 Accompanied by: Self / Same As Patient Allergies nickel (NICKEL) Allergy (Mild, Verified 02/04/25 15:06) RASH pioglitazone Allergy (Unknown, Verified 02/04/25 15:06) headache, vomiting, stomach upset metformin Adverse Reaction (Intermediate, Verified 02/04/25 15:06) headache, dizziness semaglutide (From Ozempic) Adverse Reaction (Intermediate, Verified 02/04/25 15:06) Blurry Vision Medication List - Last Reconciled 02/04/25 by Jess Messina MD albuterol sulfate 2.5 mg (3 mL) inhalation Q4-6H PRN 30 days albuterol sulfate 90 mcg/actuation (Ventolin HFA) 2 puffs PO QID PRN 30 days blood sugar diagnostic As directed blood sugar diagnostic (FreeStyle Lite Strips) Use 1 test strip once a day blood-glucose meter (FreeStyle Lite Meter kit) As directed dulaglutide (Trulicity) 0.75 mg (0.5 mL) subcut QWEEK 90 days hydrocortisone 1% (Anti-Itch (hydrocortisone)) 1 appl topical TID PRN 2 weeks lancets (FreeStyle Lancets) Use 1 lancet once a day levonorgestrel (Mirena) intrauterine losartan 50 mg PO DAILY 90 days omeprazole 20 mg PO DAILY rosuvastatin 10 mg PO DAILY 90 days Tobacco use date assessed: 02/04/25 Dental Screening Dental Screen Date: 02/04/25 HPI HPI Comments History of Present Illness0 Details The patient is a 50 year old female presenting for management of uncontrolled diabetes and new onset left hip pain. She has a history of type 2 diabetes mellitus, which is currently uncontrolled with a recent hemoglobin A1c of 9.9%. The patient reports new onset left hip pain that started approximately one month ago without any preceding trauma or fall. She also notes epigastric pain. Her medical history is also significant for hypertension, hypercholesterolemia, and acid reflux. Recent laboratory results showed LDL cholesterol was within goa l, but liver enzymes were slightly elevated. She has a Mirena IUD in place. The patient's allergies include nickel. She has a history of adverse reactions to medications, including headaches with pioglitazone and metformin, dizziness with metformin, and blurred vision with Ozempic. Her current medications include an albuterol inhaler, losartan 50 mg, omeprazole, rosuvastatin 10 mg, and Trulicity. For preventative care, she has completed her mammogram for the year. [facility] Medical History (Updated 02/04/25 @ 15:15 by Jess Messina MD) Hirsutism GERD (gastroesophageal reflux disease) Hyperplasia of cervix Abnormal uterine bleeding (AUB) Morbid obesity due to excess calories Diabetes mellitus SAPPHIRE (obstructive sleep apnea) Mild asthma Obesity Hypothyroidism Hyperlipemia Sleep apnea Hx of thyroid disease Surgical History Hx laparoscopic cholecystectomy (05/26/22) History of esophagogastroduodenoscopy (EGD) Status post sleeve gastrectomy History of lithotripsy H/O ventral hernia repair History of appendectomy Hx of ovarian cystectomy Family History Father Diabetes mellitus Stroke Mother Diabetes mellitus CVD (cardiovascular disease) Paternal Grandmother History of breast cancer Maternal Grandmother No problems noted. Maternal Aunt Stroke Diabetes mellitus Sister In good health Maternal Grandfather Skin cancer Social History Housing: Apartment Alcohol intake: never Patient Tobacco Use Status: Never used Tobacco e-Cigarette/Vaping Use: Never Used Second Hand Smoke Exposure: No service: No Current occupational status: unemployed Sexual orientation: Straight/Heterosexual Cognitive needs: No Hearing needs: No Vision needs: Yes Female Reproductive History Menstrual Age of Menarche: 10 Questionnaire PHQ-9 Over the last 2 weeks, how often have you been bothered by any of the following problems? 1. Little interest or pleasure in doing things: not at all 2. Feeling down, depressed, or hopeless: not at all 3. Trouble falling or staying asleep, or sleeping too much: not at all 4. Feeling tired or having little energy: not at all 5. Poor appetite or overeating: not at all 6. Feeling bad about yourself - or that you are a failure or have let yourself or your family down: not at all 7. Trouble concentrating on things, such as reading the newspaper or watching television: not at all 8. Moving or speaking so slowly that other people could have noticed. Or the opposite - being so fidgety or restless that you have been moving around a lot more than usual: not at all 9. Thoughts that you would be better off or of hurting yourself in some way: not at all Total score: 0 Depression Screening Interpretation: Negative Depression Screening Done: Yes 11840 - PHQ-9 Billing: Yes Source: Developed by Drs. Epifanio Montiel, Liza Oglesby, Jack Gonzáles and colleagues, with an educational almita from [employer]. Thrive Questionnaire Date Thrive assessed: 02/04/25 I am a: Patient What is your living situation today?: I have a steady place to live Within the past 12 months, did the food you bought not last and you didn't have the money to get more?: Never true Within the past 12 months, did you worry whether your food would run out before you got money to buy more?: Never true Do you have trouble paying for medicines?: No Do you have trouble getting transportation to medical appointments?: No Do you have trouble paying your heating and electricity bill?: No Do you have trouble taking care of your child, family member or friend?: No Do you have trouble with day-to-day activities such as bathing, preparing meals, shopping, managing finances, etc.?: No Are you currently unemployed and looking for a job?: I choose not to answer this question Are you interested in more education?: I choose not to answer this question Please select the resources that you would like help with: None Currently or been in a relationship where the following occur: No concerns reported THRIVE Score: 0 SAVANNAH-7 AMB Questionnaire SAVANNAH-7 Date SAVANNAH - 7 assessed: 03/06/24 Source: Developed by Drs. Epifanio Montiel, Liza Oglesby, Jack Gonzáles and colleagues, with an educational almita from [employer]. Review of Systems Const All systems reviewed & are unremarkable except as noted in HPI and below Card Denies chest pain at rest, Denies chest pain with activity, Denies edema, Denies irregular heart rhythm, Denies claudication, Denies dyspnea, Denies dyspnea on exertion, Denies orthopnea, Denies paroxysmal nocturnal dyspnea and Denies slow heart rate Resp Denies cough, Denies dyspnea and Denies dyspnea on exertion Physical exam (Primary Care) Vital Signs: Last Vital Signs Pulse 79 02/04/25 14:34 Resp 18 02/04/25 14:34 BP 130/88 02/04/25 14:34 Pulse Ox 98 02/04/25 14:34 Oxygen Delivery Method Room Air 02/04/25 14:34 BMI result Body Mass Index 43.0 BMI Assessment/Plan discussion: High BMI High, discussed plan: lifestyle, weight reduction, dietary and physical activity Tobacco/Smoking Status: Tobacco use Status Tobacco use date assessed 02/04/25 02/04/25 14:44 Patient Tobacco Use Status Never used Tobacco 02/04/25 14:36 e-Cigarette/Vaping Use Never Used 02/04/25 14:36 PHQ-9: PHQ-9 Score PHQ-9: Total score 0 02/04/25 17:14 Depression Screening Interpretation: Negative Thrive Assessment: Date of Thrive Assessment Date Thrive assessed 02/04/25 02/04/25 14:44 Currently or been in a relationship where the following occur: No concerns reported Resp Effort & Inspection: normal respiratory effort Auscultation: clear to auscultation bilaterally Cardio Jugular venous distension: no JVD Rate: regular rate Rhythm: regular rhythm Heart sounds: S1 normal heart sound present and S2 normal heart sound present Extrem General: Yes full ROM Results AMB Hemoglobin A1c AMB Hemoglobin A1c 9.9 % Last Edit by Renea Washington MA on 02/04/25 17:15 Results Reviewed Results Reviewed: Laboratory Last Values Hgb A1c (Clinic) 9.9 % (4.0-6.0) H 02/04/25 14:32 Coding Level of Care Code Complex visit Add On G2211 Diagnoses Type 2 diabetes mellitus without complication, without long-term current use of insulin E11.9 Diabetes mellitus type: type 2 Diabetes mellitus long term care administrator insulin use: without care home use Diabetes mellitus complication status: without complication Essential hypertension I10 Hyperlipidemia LDL goal <70 E78.5 Morbid obesity due to excess calories E66.01 Left hip pain M25.552 Additional Codes PHQ-9 - 94712 - PHQ-9 Billing: Yes ([id number]) Time Spent (min) 22 Assessment & Plan Assessment & Plan (1) Diabetes mellitus: Code(s): E11.9 - Type 2 diabetes mellitus without complications Category: Medical Qualifiers: Diabetes mellitus type: type 2 Diabetes mellitus care home insulin use: without long term care administrator use Diabetes mellitus complication status: without complication Qualified Code(s): E11.9 - Type 2 diabetes mellitus without complications (2) Essential hypertension: Code(s): I10 - Essential (primary) hypertension Category: Medical (3) Hyperlipidemia LDL goal <70: Code(s): E78.5 - Hyperlipidemia, unspecified Category: Medical (4) Morbid obesity due to excess calories: Code(s): E66.01 - Morbid (severe) obesity due to excess calories Category: Medical (5) Left hip pain: Code(s): M25.552 - Pain in left hip Category: Medical Plan Plan 1. Uncontrolled Type 2 Diabetes Mellitus The patient presents with an A1c of 9.9%, indicating uncontrolled diabetes. The plan is to increase the dose of Trulicity to improve glycemic control. Repeat labs will be ordered in 4 months. 2. Left Hip Pain The patient reports left hip pain for the last month with no history of trauma. An X-ray of the left hip will be ordered to evaluate the cause of the pain. 3. Epigastric Pain The patient complains of pain in the epigastric region. An upper GI series will be ordered to investigate the cause, which could be related to her known acid reflux. 4. Morbid obesity Start diet and exercise. Orders: Orders AMB Hemoglobin A1c Today E11.9 - Type 2 diabetes mellitus without complications XR hip LT min 2V Today M25.552 - Pain in left hip Lipid Panel 4 Months E78.5 - Hyperlipidemia, unspecified Vitamin D 25-OH Total 4 Months E55.9 - Vitamin D deficiency, unspecified Comprehensive [place]. Panel Fast 4 Months E11.9 - Type 2 diabetes mellitus without complications [place] upper GI series Today R10.13 - Epigastric pain Microalbumin, Random (w Creat) 4 Months R80.9 - Proteinuria, unspecified Vitamin B12 and Folate 4 Months E53.8 - Deficiency of other specified B group vitamins
== END 2025-02-04 15:15 | disposition home or self-care (01) ==
LOC: HO.HMCH 13:47
PROVIDERS: PCP Internal Medicine; Visit Provider Internal Medicine
DX: E11.9 Type 2 diabetes mellitus without complications (principal); I10 Essential (primary) hypertension; E78.5 Hyperlipidemia, unspecified; E66.01 Morbid (severe) obesity due to excess calories; M25.552 Pain in left hip; Z68.41 Body mass index [BMI] 40.0-44.9, adult

== ENCOUNTER → 2025-02-04 13:46 | Outpatient (BNVA) | payer OTHER, SELFPAY | PROVIDERS: PCP Internal Medicine; Visit Provider Internal Medicine | DX: E11.9 Type 2 diabetes mellitus without complications (principal); M25.552 Pain in left hip; I10 Essential (primary) hypertension; E78.00 Pure hypercholesterolemia, unspecified; K21.9 Gastro-esophageal reflux disease without esophagitis; E66.01 Morbid (severe) obesity due to excess calories; R10.13 Epigastric pain; R80.9 Proteinuria, unspecified; E53.8 Deficiency of other specified B group vitamins; Z68.41 Body mass index [BMI] 40.0-44.9, adult | CPT/HCPCS: 83036; 96127; 99212 ==

== ENCOUNTER 2025-02-11 08:30 | Outpatient (REF) | payer OTHER, SELFPAY ==
--- NOTE | ~2025-02-11 | XR_ITS ---
EXAMINATION: XR HIP 2 OR MORE VIEWS LEFT HISTORY: M25.552 - Pain in left hip COMPARISON: There are no prior studies available for comparison. FINDINGS: Two views of the left hip are submitted. Osseous mineralization is normal. There is no fracture or dislocation. The joint space is maintained. The soft tissues are unremarkable. An IUD is noted in the midline of the pelvis. XR/XR hip LT min 2V IMPRESSION: Unremarkable examination of the left hip. Electronically signed by: Epifanio Pathak MD 02/11/2025 08:46 AM ROBERT BASS
== END 2025-02-11 08:31 | disposition home or self-care (01) ==
LOC: HO.XRAY 08:30
PROVIDERS: PCP Internal Medicine; Visit Provider Internal Medicine
DX: M25.552 Pain in left hip (principal)
CPT/HCPCS: 73502

== ENCOUNTER → 2025-02-11 08:34 | Outpatient (BNV) | payer OTHER, SELFPAY | PROVIDERS: PCP Internal Medicine; Visit Provider Radiology Diagnostic Radiology | DX: M25.552 Pain in left hip (principal) | CPT/HCPCS: 73502 ==